=== PATIENT | male | born 2005 | race Caucasian/White ===

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

== ENCOUNTER → 2024-08-04 | Outpatient (CLI) | payer MEDICAID, SELFPAY ==
[2024-08-04 15:39] LABS: Absolute Lymphocyte Count 1.75 X10^3/uL (0.83-4.51); Absolute Neutrophil Count 10.5 X10^3/uL (2.0-7.7); Basophil# 0.07 X10^3/uL; Basophil% 0.5 % (0-1); Eosinophil# 0.29 X10^3/uL; Eosinophils% 2.2 % (0-5); Hematocrit 42.5 % (40-54); Hemoglobin 12.8 g/dL (13.0-16.5); Lymphocyte # 1.75 X10^3/ul (0.83-4.51); Lymphocyte % 13.2 % (19-41); Mean Corp Hgb Conc 30.1 g/dL (32-36); Mean Corpuscular Hgb 25.1 pg (27.0-32.0); Mean Corpuscular Volume 83.3 fL (80-94); Mean Platelet Vol. 9.8 fl (6.2-12.0); Monocyte# 0.62 X10^3/uL; Monocyte% 4.7 % (0-10); NRBC Flagged by Analyzer 0 % (0-5); Neutrophil % 78.9 % (47-70); Platelet Count 528 K/mm3 (150-450); RBC Distribution Width CV 15.2 % (11.6-14.6); RBC Distribution Width SD 46.1 fl (35.1-43.9); White Blood Count 13.3 K/mm3 (4.4-11.0)
[2024-08-04 15:56] LABS: Hemoglobin A1c 5.9 % (<=5.6)
[2024-08-04 17:22] LABS: Cholesterol 123 mg/dL (<=190); High Density Lipoprotein 44 mg/dL; Low Density Lipoprotein Calc. 57 mg/dL; Triglycerides 106 mg/dL; Very Low Density Lipoprotein 21 mg/dL (5-40); cholesterol:hdl ratio screen 2.77
[2024-08-04 18:15] LABS: ALB/GLOB Ratio 0.9 RATIO (0.9-2.4); AST(SGOT) 19 U/L (<=37); Alanine Aminotransfer ALT/SGPT 25 U/L (<=46); Alkaline Phosphatase 87 U/L (40-129); BUN 10 mg/dL (4-19); BUN/Creat Ratio 13.1 RATIO (10-20); Calcium 9.4 mg/dL (7.6-11.0); Carbon Dioxide 21.5 mmol/L (22.0-29.0); Creatinine, Serum 0.73 mg/dL (0.70-1.20); EST Glomerular Filtration Rate 133 (>60); Globulin 4.4 g/dL (2.2-4.2); Glucose 110 mg/dL (70-99); Protein, Total 8.3 g/dL (5.9-8.4); Total Bilirubin 0.55 mg/dL (0.00-1.30)
[2024-08-04 18:52] LABS: Anion Gap 17 (5-15); Chloride 101 mmol/L (96-108); Potassium 4.4 mmol/L (3.3-5.1); Sodium Level 139 mmol/L (133-145)
== END | disposition home or self-care (01) ==
LOC: BIMLAB 12:06
PROVIDERS: PCP Physician Assistant; Referring Provider Physician Assistant; Visit Provider Physician Assistant
DX: E88.810 Metabolic syndrome (principal); E66.01 Morbid (severe) obesity due to excess calories; I87.2 Venous insufficiency (chronic) (peripheral)
CPT/HCPCS: 36415; 80053; 80061; 83036; 84443; 85025

== ENCOUNTER → 2024-08-21 | Outpatient (CLI) | payer MEDICAID, SELFPAY ==
--- NOTE | 2024-08-21 13:45 | VDLE_ITS ---
Reason For Study Reason For Study: BLE Swelling RIGHT LEFT CFV is compressible, spontaneous, phasic, competent CFV is compressible, phasic, and INCOMPETENT for and demonstrates normal augmentation. greater than 1.0 second. FV is compressible, spontaneous, phasic, competent FV is compressible, spontaneous, phasic, competent and demonstrates normal augmentation. and demonstrates normal augmentation. POP V is compressible, spontaneous, phasic, competent POP V is compressible, spontaneous, phasic, competent and demonstrates normal augmentation. and demonstrates normal augmentation. T/P Trunk is compressible. T/P Trunk is compressible. PTV is compressible. PTV is compressible. RT PerV is compressible. LT PerV is compressible. SFJ is INCOMPETENT and measures 0.88 cm. SFJ is INCOMPETENT and measures 0.98 cm. GSV proximal thigh measures 0.63 x 0.71 cm. GSV proximal thigh measures 0.84 x 0.90 cm. GSV at knee measures 0.51 x 0.48 cm. GSV at knee measures 0.85 x 0.89 cm. GSV above knee is competent. GSV INCOMPETENT throughout for greater than 0.5 GSV below knee is INCOMPETENT for greater than 0.5 seconds. seconds. SSV at junction is competent and measures 0.24 x 0.21 ASV mid thigh is INCOMPETENT for greater than 0.5 cm. seconds and measures 0.65 x 0.66 cm. Unable to visualize SSV at Mid Calf. ASV at knee is INCOMPETENT for greater than 0.5 seconds and measures 0.54 x 0.57 cm. SSV at junction is competent and measures 0.33 x 0.34 cm. SSV mid calf is competent and measures 0.23 x 0.28 cm. Procedure Exam performed in department. This is a venous duplex using B-mode, color flow and spectral Doppler. The exam was diagnostic. The study was technically difficult due to body habitus. Limited views obtained. VL/Venous Duplex US - Balaji Extrem Interpretation Summary Deep veins of the lower extremities are bilaterally patent and compressible seg mentally. There is no evidence of deep vein thrombosis on either side. Valvular competence appears intact within the p roximal deep venous system on the right . On the left, the common femoral vein is incompetent. The great saphenous veins appear bilaterally patent and compressible segmentally. Sapheno-femoral junctions are bilaterally incompetent . The right great saphenous vein appears competent above the knee. The right great saphenous vein appears incompetent be low the knee. The left great saphenous vein appears segmentally incompetent. Small saphenous veins are patent and comp etent, though the left small saphenous vein was not visualized in the calf. Accessory saphenous veins in the right mid -thigh and at the right knee are incompetent. Ordering Physician: Troy Holland Referring Physician: Troy Holland Performed By: Charli Parikh RVT
== END | disposition home or self-care (01) ==
LOC: CVS 13:42
PROVIDERS: PCP Physician Assistant; Referring Provider Physician Assistant; Visit Provider Physician Assistant
DX: I87.2 Venous insufficiency (chronic) (peripheral) (principal); I89.0 Lymphedema, not elsewhere classified
CPT/HCPCS: 29581; 93970

== ENCOUNTER 2024-09-04 09:45 | Outpatient (RCR) | payer MEDICAID, SELFPAY ==
[2024-08-17 10:41] VITALS: BP 149/92; PULSE 108; RESP 18; BMI 66.4
--- NOTE | 2024-08-17 13:31 | HP.PCM_ITS ---
History of Present Illness Date of Service: 08/17/24 Chief Complaint: Left lower extremity venous ulcerations History of Wound: Patient is a 19-year-old male who presents to the wound care center today by referral from his SRINIVASA Greer. Reports that his legs are swollen and more painful. He was placed on antibiotic prior and had been elevating his legs more and using Burke wraps for compression and reports some improvement in this. States that the legs do have some yellow serous fluid drainage and tend to weep. He did report history of multiple ulcerations however these have improved with the previously stated treatment. He continues to attempt Burke wrap compression and will be going to vascular physician for additional recommendations. He is understanding that he has PMHx of HTN, morbid obesity, peripheral venous insufficiency, lymphedema, and metabolic syndrome are contributing to his current edema and wound problems. He denies any trauma to the lower extremities. Denies N/V/F/chills. Denies further complaints. FORMERLY [facility] Medical History Emotional disorder Home Medications ?Medication ?Instructions ?Recorded ?Last Taken ?Type hydrocolloid dressing 6 X 6 #50 ea 08/04/24 Unknown Rx (Aquacel Extra) metoprolol succinate 25 mg 25 mg PO QDAY #30 tabs 07/09 01/29 Unknown Rx tablet,extended release 24 hr non-adherent bandage 5 X 9 #60 ea 08/04/24 Unknown R x Allergy/AdvReac Type Severity Reaction Status Date / Time Dressing: Non-Medicated AdvReac Mild blisters Verified 08/17/24 13:23 (wrap) Family History Other Anxiety Arthritis CVA (cerebral vascular accident) Diabetes Epilepsy seizure, generalized, convulsive High cholesterol Hypertension Liver disease Seizures Thyroid disorder Surgical History History of tonsillectomy and adenoidectomy Social History adopted: No household members: family housing: house current occupational status: unemployed current occupational exposures/hazards: No pets and animals: Yes pets and animals: cat(s) and dog(s) leisure activities: exercise history of recent travel: No Smoking Status: Never smoker alcohol intake: current alcohol intake frequency: holidays/special occasions only substance use type: does not use diet: other well-balanced diet: rarely or never caffeine: Yes Type: carbonated beverages eating out: other details: every other week during the past year weight has: remained stable what type of physical activity do you participate in: other details: elliptical frequency: 3-4 times per week duration: 15-30 minutes/day radha/mandaeism: None seatbelt use: always do you feel safe at home: Yes ROS Constitutional Constitutional: Denies anorexia, change in weight, chills or fever(s) Eyes Eyes: Denies blurry vision, change in vision or double vision ENT HEENT: Denies dysphagia, nasal congestion or sore throat Cardiovascular Cardiovascular: Denies chest pain, claudication, dyspnea or palpitations Respiratory/Chest Respiratory/Chest: Denies cough, shortness of breath at rest or wheezing Gastrointestinal Gastrointestinal: Denies abdominal pain, constipation, diarrhea, nausea or vomiting Genitourinary Genitourinary: Denies dysuria, urinary frequency or urinary urgency Musculoskeletal Musculoskeletal: Denies joint pain, joint stiffness or joint swelling Integumentary Integumentary: Denies jaundice, pruritus or rash Neurologic Neurologic: Denies dizziness, numbness or seizures Psychiatric Psychiatric: Denies anxiety or depression Endocrine Endocrinology: Denies cold intolerance or heat intolerance Hematologic/Lymphatic Hematologic/Lymphatic: Denies easy bleeding or easy bruising Vital Signs Vital Signs Vital Signs: 08/17/24 10:41 Pulse Rate 108 H Respiratory Rate 18 Blood Pressure 149/92 H Blood Pressure Mean 111 Blood Pressure Source Monitor Blood Pressure Position Sitting Blood Pressure Location Right Arm Oxygen Delivery Method Room Air Weight Weight: 228.611 kg Body Mass Index (BMI) 66.4 Physical Exam Const alert, oriented x3 and no apparent distress General Appearance: cooperative HEENT normocephalic Eyes General Eye: normal appearance of both eyes Neck General: normal visual inspection Lymph Lymphatic: no lymphadenopathy noted and lymphedema Resp normal respiratory effort Cardio regular rate and regular rhythm Extremity normal capillary refill and no calf tenderness Extremity Narrative: Lower extremity: Vascular: DP and PT pulses weakly palpable secondary to edema. CFT is brisk to all digits of the foot. Normal temperature gradient. Pedal hair growth is appreciated to the digits. Neurologic: Epicritic sensation intact without focal deficit noted. Musculoskeletal: Muscle strength 5 of 5 age-appropriate. There is decreased range of motion of the ankle joint with the knee extended without pain or crepitus bilateral. Full range of motion is appreciated with the knee flexed. Negative Fay test, negative Ojeda test bilateral lower extremity. Full, smooth, pain-free range of motion of the STJ, MTJ and first MTPJ is appreciated. Dermatology: There is edema to bilateral lower extremities with left lower extremity greater than the right lower extremity. Left lower extremity demonstrates healthy appearing skin with reduced turgor. Positive Stemmer sign bilateral second digit. There is hemosiderin deposition and reddish purpleish discoloration circumferentially about the left lower extremity. There are areas of previous noted healed superficial skin tears with some areas of serous drainage. No signs of infection. Skin no rashes or lesions noted Neuro moves all extremities Debridement Note Debridement Note No debridement was completed: No debridement was completed today Post-Debridement Measurements and Additional Note: Post-Debridement Measurements/Treatment - Nurse 1 - General Ulcer Assessment Start: 08/17/24 10:30 Freq: Status: Active Protocol: WC.LOWEXWellington Activity Type Activity Date Activity User E-sign Co-sign Detail Recorded Client Recorded Date Recorded By Document 08/17/24 10:41 [id number] 08/17/24 10:59 08/17/24 10:41 - Today's Visit Information Type of service Initial Visit Arrival Mode Ambulatory Accompanied by [facility] Patient Identification Verified (Name & Yes ) Height and Weight Height 6 ft 1 in Weight 228.611 kg Weight in Pounds 504.0 lbs Weight Measurement Method Estimated by Patient Body Mass Index (BMI) 66.4 BMI Classification Obese Vital Signs Pulse Rate (60-100) 108 H Pulse Location Monitor Respiratory Rate (12-18) 18 Respiratory rate source Observation Oxygen Delivery Method Room Air Blood Pressure (90/60-120/80) 149/92 H Blood Pressure Mean 111 Source Monitor Position Sitting Blood Pressure Location Right Arm History Since Last Visit- (Skip if this is Patient's initial visit) Left Footwear Regular Shoe Right Footwear Regular Shoe Pain Scale: 0-10 Numeric Is Patient Pain Free? No BLE -Description Aching -Comments PAIN COMES AND GOES Lower Extremity Assessment/ Foot Assessment/ Toe Nail Assessment Right -Posterior Tibial Palpable No -Posterior Tibial Doppler Multiphasic -Dorsalis Pedis Palpable No -Dorsalis Pedis Doppler Monophasic -Extremity Color Red,Normal -Hair Growth on Legs Yes -Hair Growth on Toes Yes -Thick No -Discolored No -Deformed No -Improper Length & Hygeine No Left -Posterior Tibial Palpable No -Posterior Tibial Doppler Multiphasic -Dorsalis Pedis Palpable No -Dorsalis Pedis Doppler Monophasic -Extremity Color Red -Hair Growth on Legs Yes -Hair Growth on Toes Yes -Temperature of Extremity Warm -Thick No -Discolored No -Deformed No -Improper Length & Hygeine No Communication Assessment Preferred language Swedish Order Tracer Required No Able to Read Yes Able to Write Yes Communication Tools None Right Hearing Abillity Normal Left Hearing Abillity Normal Visual Assistive Devices Glasses Teaching Assessment Preferences Verbal,Written, Demonstration Barriers to Learning None Readiness To Learn Excellent Willingness to Engage in Self Management High Activies Readiness to Engage in Self Management High Activities Anxiety Level Calm Cooperation Cooperative Perception Coherent Interest in Health Problem Asks Questions Education Importance Acknowledges Need Does Patient Smoke tobacco or other Yes substances Smoking Status Never smoker Is Patient Diabetic No Functional Assessment Recent Decline in Ability to Perform Denies Any Declines Culture/Scientology/Doormaker Cultural/Scientology Needs that may affect No Treatment Plan Would you allow our hospital mechanical spreader operator to No meet you for the purpose of spiritual/ emotional support? Doormaker to contact place of adventism No WC - Nurse 1 - General Ulcer Measurement Start: 08/17/24 10:30 Freq: Status: Active Protocol: Activity Type Activity Date Activity User E-sign Co-sign Detail Recorded Client Recorded Date Recorded By Document 08/17/24 10:41 [id number] 08/17/24 10:59 08/17/24 10:41 Wound Center Nurse 1 Right Calf (cm) 61 Right Ankle (cm) 34 Left Calf (cm) 74 Left Ankle (cm) 37.5 WC - Nurse 2 - General Ulcer CM Notes Start: 08/17/24 10:30 Freq: Status: Active Protocol: Activity Type Activity Date Activity User E-sign Co-sign Detail Recorded Client Recorded Date Recorded By Document 08/17/24 11:16 BM [id number] 08/17/24 11:24 [facility] 08/17/24 11:16 Pain Scale: 0-10 Numeric Is Patient Pain Free? Yes WC - Nurse 3 - General Ulcer D/C NN Start: 08/17/24 10:30 Freq: Status: Active Protocol: Activity Type Activity Date Activity User E-sign Co-sign Detail Recorded Client Recorded Date Recorded By Document 08/17/24 11:50 [id number] 08/17/24 11:51 KW 08/17/24 11:50 Wound Care Center Nurse 3 BLE -Multi-Layered Wrap Application Multi-Layer Comp - Bilat ($ ) -Multi-Layer Compression Bilat (Qty 1 applied) Pain Scale: 0-10 Numeric Is Patient Pain Free? Yes WC - Visit Discharge Discharge Condition Stable Ambulatory Status Ambulatory Transportation Private Auto Medication Reconcilliation completed & No provided to patient/care provider Clinical Summary of Care Provided Yes Assessment/Plan Assessment/Plan (1) Non-pressure chronic ulcer of left calf limited to breakdown of skin: CODE(S): L97.221 - Non-pressure chronic ulcer of left calf limited to breakdown of skin (2) Venous (peripheral) insufficiency: CODE(S): I87.2 - Venous insufficiency (chronic) (peripheral) (3) Lymphedema of left lower extremity: CODE(S): I89.0 - Lymphedema, not elsewhere classified (4) Morbid obesity: CODE(S): E66.01 - Morbid (severe) obesity due to excess calories (5) Metabolic syndrome: CODE(S): E88.810 - Metabolic syndrome (6) Hypertension: CODE(S): I10 - Essential (primary) hypertension QUALIFIERS: Hypertension type: primary hypertension Qualified Code(s): I10 - Essential (primary) hypertension PLAN: Plan Patient seen and evaluated Discussed with patient currently demonstrates no open areas of ulceration however skin does remain friable secondary to his previously healed skin tears. There is still some venous weeping of serous fluid secondary to significant edema. 3M compression wrap applied to bilateral lower extremities. He was instructed to not get this wet and utilize cast bag when showering to remain compliant. Discussed it is imperative for him to begin diet and weight control. He is currently not diabetic but I have discussed with him that with metabolic syndrome he is at higher risk of development of diabetes. Most recent A1c was 5.9%. Discussed with weight loss he would be able to prevent onset of early diabetes, improve his blood pressure, and improve his lymphedema and his venous insufficiency. Discussed he will always likely require compression stocking to aid in control of his edema and may require the use of lymphedema pumps. He is understanding of this. Discussed continued evaluation to ensure recidivism of his previous wounds do not occur. He is in agreement with this plan. He will undergo follow-up with vascular surgery, Dr. Narayan and has been scheduled for LEAS/Venous studies with CTA angiogram. The following work up and care recommendations were made: DressinM compression wrap. Do not get wet. Utilize cast bag when showering to remain compliant Wash: Do not get wet Tissue growth optimization: None Offload: 3M compression wrap with eventual transition into compression stockings/lymphedema pump Vascular: Do not feel vascular status is impacting healing status. Venous stasis remains difficult in treatment. Edema: 3M compression wrap with eventual transition into compression stocking/lymphedema pump. Continue to elevate lower extremities when at rest to aid in edema control. Infection: No signs of infection Pain: No pain currently. May take [id number] Tylenol Extra Strength for any discomfort Host factors: Metabolic syndrome, morbid obesity, venous insufficiency/stasis, lymphedema, and hypertension all affect healing status I answered all the patient's questions. To return to the wound healing center in 1 week or call sooner if the patient has any questions or concerns.
--- NOTE | 2024-08-18 12:10 | WC ---
PHOTO 08/17/24 LLE EDEMA
[2024-08-21 10:57] VITALS: RESP 22; TEMP 37.2; BMI 66.4
[2024-08-21 15:20] VITALS: BP 140/99; PULSE 104; RESP 18; TEMP 36.8; BMI 66.4
[2024-08-24 09:46] VITALS: BP 159/109; PULSE 105; RESP 16; TEMP 35.9; BMI 66.4
--- NOTE | 2024-08-24 10:08 | PN.PCM_ITS ---
History of Present Illness Date of Service: 08/24/24 Chief Complaint: Left lower extremity venous ulcerations History of Wound: Patient is a 19-year-old male who presents to the wound care center today by referral from his SRINIVASA Greer. Reports that his legs are swollen and more painful. He was placed on antibiotic prior and had been elevating his legs more and using Burke wraps for compression and reports some improvement in this. States that the legs do have some yellow serous fluid drainage and tend to weep. He did report history of multiple ulcerations however these have improved with the previously stated treatment. He continues to attempt Burke wrap compression and will be going to vascular physician for additional recommendations. He is understanding that he has PMHx of HTN, morbid obesity, peripheral venous insufficiency, lymphedema, and metabolic syndrome are contributing to his current edema and wound problems. He denies any trauma to the lower extremities. Denies N/V/F/chills. Denies further complaints. Subjective Subjective This 19-year-old male returns to the wound care center today for continued follow-up of bilateral lymphedema left greater than right compounded by chronic venous insufficiency/stasis. He did tolerate the 3M compression wrap to bilateral legs and was compliant with keeping them dry. He denies constitutional symptoms. Denies further complaints. Objective Data Objective Data Vital Signs: Vital Signs Temp Pulse Resp BP O2 Del Method 96.7 F L 105 H 16 159/109 H Room Air 08/24/24 09:46 08/24/24 09:46 08/24/24 09:46 08/24/24 09:46 08/24/24 09:46 Oxygen Delivery Method Room Air Weight: 228.611 kg Body Mass Index (BMI) 66.4 Physical Exam Const alert, oriented x3 and no apparent distress General Appearance: cooperative HEENT normocephalic Eyes General Eye: normal appearance of both eyes Neck General: normal visual inspection Lymph Lymphatic: no lymphadenopathy noted and lymphedema Resp normal respiratory effort Cardio regular rate and regular rhythm Extremity normal capillary refill and no calf tenderness Extremity Narrative: Lower extremity: Vascular: DP and PT pulses weakly palpable secondary to edema. CFT is brisk to all digits of the foot. Normal temperature gradient. Pedal hair growth is appreciated to the digits. Neurologic: Epicritic sensation intact without focal deficit noted. Musculoskeletal: Muscle strength 5 of 5 age-appropriate. There is decreased range of motion of the ankle joint with the knee extended without pain or crepitus bilateral. Full range of motion is appreciated with the knee flexed. Negative Fay test, negative Ojeda test bilateral lower extremity. Full, smooth, pain-free range of motion of the STJ, MTJ and first MTPJ is appreciated. Dermatology: There is edema to bilateral lower extremities with left lower extremity greater than the right lower extremity. Left lower extremity demonstrates healthy appearing skin with reduced turgor. Positive Stemmer sign bilateral second digit. There is hemosiderin deposition and reddish purpleish discoloration circumferentially about the left lower extremity. There are areas of previous noted healed superficial skin tears with some areas of serous drainage. No signs of infection. Skin no rashes or lesions noted Neuro moves all extremities Debridement Note Debridement Note No debridement was completed: No debridement was completed today Post-Debridement Measurements and Additional Note: Post-Debridement Measurements/Treatment - Nurse 1 - General Ulcer Assessment Start: 08/17/24 10:30 Freq: Status: Active Protocol: ANDREY Activity Type Activity Date Activity User E-sign Co-sign Detail Recorded Client Recorded Date Recorded By Document 08/17/24 10:41 KW [id number] 08/17/24 10:59 KW Document 08/21/24 10:57 DL [id number] 08/21/24 11:03 DL Document 08/21/24 15:20 KW [id number] 08/21/24 15:22 KW Document 08/24/24 09:46 KW [id number] 08/24/24 09:55 KW 08/17/24 08/21/24 08/21/24 10:41 10:57 15:20 - Today's Visit Information Type of service Initial Visit Nurse-only Nurse-only Visit Visit Arrival Mode Ambulatory Ambulatory Ambulatory Transfer Assistance None Accompanied by grandma grandmother Patient Identification Verified (Name & Yes Yes Yes ) Patient Requires Transmission-Based No Precautions Height and Weight Height 6 ft 1 in Weight 228.611 kg Weight in Pounds 504.0 lbs Weight Measurement Method Estimated by Patient Body Mass Index (BMI) 66.4 66.4 66.4 BMI Classification Obese Obese Obese Vital Signs Temperature (97.8 F-99.1 F) 99 F 98.2 F Temperature Source Temporal Temporal Pulse Rate (60-100) 108 H 104 H Pulse Location Monitor Monitor Respiratory Rate (12-18) 18 22 H 18 Respiratory rate source Observation Observation Observation Oxygen Delivery Method Room Air Room Air Blood Pressure (90/60-120/80) 149/92 H 140/99 H Blood Pressure Mean (mm Hg) 111 112 Source Monitor Monitor Position Sitting Sitting Blood Pressure Location Right Arm Left Arm History Since Last Visit- (Skip if this is Patient's initial visit) Have you changed medications since your No No last visit? Any new allergies or adverse reactions No No Had a fall/change in ADL's that may No No increase risk of falls Signs or symptoms of abuse and/or No No neglect since last visit Have you been in the hospital since your No No last visit? Has dressing in place as prescribed No Yes Has compression in place as prescribed Yes Yes Has offloadiing in place as prescribed N/A N/A Experienced any changes in pain level or No No management Left Footwear Regular Shoe Regular Shoe Right Footwear Regular Shoe Regular Shoe Pain Scale: 0-10 Numeric Is Patient Pain Free? No Yes Yes BLE -Description Aching -Comments PAIN COMES AND GOES Lower Extremity Assessment/ Foot Assessment/ Toe Nail Assessment Right -Posterior Tibial Palpable No -Posterior Tibial Doppler Multiphasic -Dorsalis Pedis Palpable No -Dorsalis Pedis Doppler Monophasic -Extremity Color Red,Normal -Hair Growth on Legs Yes -Hair Growth on Toes Yes -Thick No -Discolored No -Deformed No -Improper Length & Hygeine No Left -Posterior Tibial Palpable No -Posterior Tibial Doppler Multiphasic -Dorsalis Pedis Palpable No -Dorsalis Pedis Doppler Monophasic -Extremity Color Red -Hair Growth on Legs Yes -Hair Growth on Toes Yes -Temperature of Extremity Warm -Thick No -Discolored No -Deformed No -Improper Length & Hygeine No Communication Assessment Preferred language Ukrainian Continuous Process Coffee Roaster Required No Able to Read Yes Able to Write Yes Communication Tools None Right Hearing Abillity Normal Left Hearing Abillity Normal Visual Assistive Devices Glasses Teaching Assessment Preferences Verbal,Written, Demonstration Barriers to Learning None Readiness To Learn Excellent Willingness to Engage in Self Management High Activies Readiness to Engage in Self Management High Activities Anxiety Level Calm Cooperation Cooperative Perception Coherent Interest in Health Problem Asks Questions Education Importance Acknowledges Need Does Patient Smoke tobacco or other Yes substances Smoking Status Never smoker Is Patient Diabetic No Functional Assessment Recent Decline in Ability to Perform Denies Any Declines Culture/Rastafari/Deckhand Fishing Vessel Cultural/Rastafari Needs that may affect No Treatment Plan Would you allow our hospital relays draftsperson to No meet you for the purpose of spiritual/ emotional support? Deckhand Fishing Vessel to contact place of jew No 08/24/24 09:46 WC - Today's Visit Information Type of service Follow-up Visit (Physician/ELECTRICAL LINE SPLICER ) Arrival Mode Ambulatory Transfer Assistance Accompanied by grandmother Patient Identification Verified (Name & Yes ) Patient Requires Transmission-Based Precautions Height and Weight Height Weight Weight in Pounds Weight Measurement Method Body Mass Index (BMI) 66.4 BMI Classification Obese Vital Signs Temperature (97.8 F-99.1 F) 96.7 F L Temperature Source Temporal Pulse Rate (60-100) 105 H Pulse Location Monitor Respiratory Rate (12-18) 16 Respiratory rate source Observation Oxygen Delivery Method Room Air Blood Pressure (90/60-120/80) 159/109 H Blood Pressure Mean (mm Hg) 125 Source Monitor Position Semi-Fowlers Blood Pressure Location Left Arm History Since Last Visit- (Skip if this is Patient's initial visit) Have you changed medications since your No last visit? Any new allergies or adverse reactions No Had a fall/change in ADL's that may No increase risk of falls Signs or symptoms of abuse and/or No neglect since last visit Have you been in the hospital since your No last visit? Has dressing in place as prescribed Yes Has compression in place as prescribed Yes Has offloadiing in place as prescribed N/A Experienced any changes in pain level or No management Left Footwear Regular Shoe Right Footwear Regular Shoe Pain Scale: 0-10 Numeric Is Patient Pain Free? Yes BLE -Description -Comments Lower Extremity Assessment/ Foot Assessment/ Toe Nail Assessment Right -Posterior Tibial Palpable -Posterior Tibial Doppler -Dorsalis Pedis Palpable -Dorsalis Pedis Doppler -Extremity Color -Hair Growth on Legs -Hair Growth on Toes -Thick -Discolored -Deformed -Improper Length & Hygeine Left -Posterior Tibial Palpable -Posterior Tibial Doppler -Dorsalis Pedis Palpable -Dorsalis Pedis Doppler -Extremity Color -Hair Growth on Legs -Hair Growth on Toes -Temperature of Extremity -Thick -Discolored -Deformed -Improper Length & Hygeine Communication Assessment Preferred trench trimmer fine Required Able to Read Able to Write Communication Tools Right Hearing Abillity Left Hearing Abillity Visual Assistive Devices Teaching Assessment Preferences Barriers to Learning Readiness To Learn Willingness to Engage in Self Management Activies Readiness to Engage in Self Management Activities Anxiety Level Cooperation Perception Interest in Health Problem Education Importance Does Patient Smoke tobacco or other substances Smoking Status Is Patient Diabetic Functional Assessment Recent Decline in Ability to Perform Culture/Rastafari/Deckhand Fishing Vessel Cultural/Rastafari Needs that may affect Treatment Plan Would you allow our [facility] rel[facility] draftsperson to meet you for the purpose of spiritual/ emotional support? Deckhand Fishing Vessel to contact place of jew WC - Nurse 1 - General Ulcer Measurement Start: 08/17/24 10:30 Freq: Status: Active Protocol: Activity Type Activity Date Activity User E-sign Co-sign Detail Recorded Client Recorded Date Recorded By Document 08/17/24 10:41 KW [id number] 08/17/24 10:59 KW Document 08/24/24 09:46 KW [id number] 08/24/24 09:55 KW 08/17/24 08/24/24 10:41 09:46 Wound Center Nurse 1 Right Calf (cm) 61 61 Right Ankle (cm) 34 35 Left Calf (cm) 74 60.5 Left Ankle (cm) 37.5 36 - Nurse 2 - General Ulcer CM Notes Start: 08/17/24 10:30 Freq: Status: Active Protocol: Activity Type Activity Date Activity User E-sign Co-sign Detail Recorded Client Recorded Date Recorded By Document 08/17/24 11:16 [facility] [id number] 08/17/24 11:24 [facility] Document 08/24/24 10:02 [facility] [id number] 08/24/24 10:05 F 08/17/24 08/24/24 11:16 10:02 Pain Scale: 0-10 Numeric Is Patient Pain Free? Yes Yes - Nurse 3 - General Ulcer D/C NN Start: 08/17/24 10:30 Freq: Status: Active Protocol: Activity Type Activity Date Activity User E-sign Co-sign Detail Recorded Client Recorded Date Recorded By Document 08/17/24 11:50 KW [id number] 08/17/24 11:51 KW Document 08/21/24 10:57 DL [id number] 08/21/24 11:03 DL Document 08/21/24 15:20 KW [id number] 08/21/24 15:22 KW 08/17/24 08/21/24 08/21/24 11:50 10:57 15:20 Wound Care Center Nurse 3 BLE -Multi-Layered Wrap Application Multi-Layer Multi-Layer Comp - Bilat ($ Comp - Bilat ($ ) ) -Multi-Layer Compression Bilat (Qty 1 1 applied) Pain Scale: 0-10 Numeric Is Patient Pain Free? Yes Yes Yes WC - Visit Discharge Discharge Condition Stable Stable Ambulatory Status Ambulatory Ambulatory Transportation Private Auto Private Auto Medication Reconcilliation completed & No No provided to patient/care provider Clinical Summary of Care Provided Yes Yes Assessment/Plan Assessment/Plan (1) Non-pressure chronic ulcer of left calf limited to breakdown of skin: CODE(S): L97.221 - Non-pressure chronic ulcer of left calf limited to breakdown of skin (2) Venous (peripheral) insufficiency: CODE(S): I87.2 - Venous insufficiency (chronic) (peripheral) (3) Lymphedema of left lower extremity: CODE(S): I89.0 - Lymphedema, not elsewhere classified (4) Morbid obesity: CODE(S): E66.01 - Morbid (severe) obesity due to excess calories (5) Metabolic syndrome: CODE(S): E88.810 - Metabolic syndrome (6) Hypertension: CODE(S): I10 - Essential (primary) hypertension QUALIFIERS: Hypertension type: primary hypertension Qualified Code(s): I10 - Essential (primary) hypertension PLAN: Plan Patient seen and evaluated Patient currently demonstrates no open areas of ulceration, however skin does remain friable secondary to his previously healed skin tears to which he is und erstanding of risk of reulceration. There is still some venous scant weeping of serous fluid secondary to significant edema. 3M compression wrap applied to bilateral lower extremities. He was instructed to not get this wet and utilize cast bag when showering to remain compliant. He did previously tolerate the 3M compression wrap well and did undergo dressing change this past Wednesday. Nursing reports calf circumference measurement has decreased versus previous visit and treatment is improving his edema. I have previously discussed with him it is imperative for him to begin diet and weight control. He is currently not diabetic but I have discussed with him that with metabolic syndrome he is at higher risk of development of diabetes. Most recent A1c was 5.9%. Discussed with weight loss he would be able to prevent onset of early diabetes, improve his blood pressure, and improve his lymphedema and his venous insufficiency. Discussed he will always likely require compression stocking to aid in control of his edema and may require the use of lymphedema pumps. He is understanding of this. Discussed continued evaluation to ensure recidivism of his previous wounds do not occur. He is in agreement with this plan. He did previously undergo venous studies on 08/21/2024. 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 Left common femoral vein incompetent, left great saphenous vein segmentally incompetent. These findings were discussed with him today. He will undergo follow-up with vascular surgery, Dr. Narayan and has been scheduled for LEAS/Venous studies with CTA angiogram. The following work up and care recommendations were made: DressinM compression wrap. Do not get wet. Utilize cast bag when showering to remain compliant Wash: Do not get wet Tissue growth optimization: None Offload: 3M compression wrap with eventual transition into compression stockings/lymphedema pump Vascular: Do not feel vascular status is impacting healing status. Venous stasis remains difficult in treatment. Edema: 3M compression wrap with eventual transition into compression stocking/lymphedema pump. Continue to elevate lower extremities when at rest to aid in edema control. Infection: No signs of infection Pain: No pain currently. May take [id number] Tylenol Extra Strength for any discomfort Host factors: Metabolic syndrome, morbid obesity, venous insufficiency/stasis, lymphedema, and hypertension all affect healing status He will return for nurse visit on Wednesday08/28/2024 for change of bilateral 3M compression dressing. I answered all the patient's questions. To return to the wound healing center in 1 week or call sooner if the patient has any questions or concerns.
[2024-08-28 08:42] VITALS: BP 150/94; PULSE 102; RESP 16; TEMP 37.2; BMI 66.4
[2024-08-31 09:49] VITALS: BP 155/88; PULSE 109; RESP 20; TEMP 36; BMI 66.4
--- NOTE | 2024-08-31 11:51 | PN.PCM_ITS ---
History of Present Illness Date of Service: 08/31/24 Chief Complaint: Left lower extremity venous ulcerations History of Wound: Patient is a 19-year-old male who presents to the wound care center today by referral from his SRINIVASA Greer. Reports that his legs are swollen and more painful. He was placed on antibiotic prior and had been elevating his legs more and using Burke wraps for compression and reports some improvement in this. States that the legs do have some yellow serous fluid drainage and tend to weep. He did report history of multiple ulcerations however these have improved with the previously stated treatment. He continues to attempt Burke wrap compression and will be going to vascular physician for additional recommendations. He is understanding that he has PMHx of HTN, morbid obesity, peripheral venous insufficiency, lymphedema, and metabolic syndrome are contributing to his current edema and wound problems. He denies any trauma to the lower extremities. Denies N/V/F/chills. Denies further complaints. Subjective Subjective This 19-year-old male returns to the wound care center today for continued follow-up of bilateral lymphedema left greater than right compounded by chronic venous insufficiency/stasis. He continues to tolerate the 3M compression wrap to bilateral legs and remains compliant with keeping them dry. He does note his legs are beginning to improve with less edema. He denies constitutional symptoms. Denies further complaints. Objective Data Objective Data Vital Signs: Vital Signs Temp Pulse Resp BP O2 Del Method 96.8 F L 109 H 20 H 155/88 H Room Air 08/31/24 09:49 08/31/24 09:49 08/31/24 09:49 08/31/24 09:49 08/28/24 08:42 Oxygen Delivery Method Room Air Weight: 228.611 kg Body Mass Index (BMI) 66.4 Physical Exam Const alert, oriented x3 and no apparent distress General Appearance: cooperative Nutritional Appearance: morbidly obese HEENT normocephalic Eyes General Eye: normal appearance of both eyes Neck General: normal visual inspection Lymph Lymphatic: no lymphadenopathy noted and lymphedema Resp normal respiratory effort Cardio regular rate and regular rhythm Extremity normal capillary refill and no calf tenderness Extremity Narrative: Lower extremity: Vascular: DP and PT pulses weakly palpable secondary to edema. CFT is brisk to all digits of the foot. Normal temperature gradient. Pedal hair growth is appreciated to the digits. Neurologic: Epicritic sensation intact without focal deficit noted. Musculoskeletal: Muscle strength 5 of 5 age-appropriate. There is decreased range of motion of the ankle joint with the knee extended without pain or crepitus bilateral. Full range of motion is appreciated with the knee flexed. Negative Fay test, negative Ojeda test bilateral lower extremity. Full, smooth, pain-free range of motion of the STJ, MTJ and first MTPJ is appreciated. Dermatology: There is edema to bilateral lower extremities with left lower extremity greater than the right lower extremity. Left lower extremity demonstrates healthy appearing skin with reduced turgor. Positive Stemmer sign bilateral second digit. There is hemosiderin deposition and reddish purpleish discoloration circumferentially about the left lower extremity. There are areas of previous noted healed superficial skin tears with some areas of serous drainage. Small area of superficial skin tear secondary to his edema anterior medial left lower extremity. No signs of infection. Skin no rashes or lesions noted Neuro moves all extremities Debridement Note Debridement Note No debridement was completed: No debridement was completed today Post-Debridement Measurements and Additional Note: Post-Debridement Measurements/Treatment - Nurse 1 - General Ulcer Assessment Start: 08/17/24 10:30 Freq: Status: Active Protocol: WC.LOWEXWellington Activity Type Activity Date Activity User E-sign Co-sign Detail Recorded Client Recorded Date Recorded By Document 08/17/24 10:41 KW [id number] 08/17/24 10:59 KW Document 08/21/24 10:57 DL [id number] 08/21/24 11:03 DL Document 08/21/24 15:20 KW [id number] 08/21/24 15:22 KW Document 08/24/24 09:46 KW [id number] 08/24/24 09:55 KW Document 08/28/24 08:42 KW [id number] 08/28/24 08:51 KW Document 08/31/24 09:49 DL [id number] 08/31/24 09:53 DL 08/17/24 08/21/24 08/21/24 10:41 10:57 15:20 - Today's Visit Information Type of service Initial Visit Nurse-only Nurse-only Visit Visit Arrival Mode Ambulatory Ambulatory Ambulatory Transfer Assistance None Accompanied by grandma grandmother Patient Identification Verified (Name & Yes Yes Yes ) Patient Requires Transmission-Based No Precautions Height and Weight Height 6 ft 1 in Weight 228.611 kg Weight in Pounds 504.0 lbs Weight Measurement Method Estimated by Patient Body Mass Index (BMI) 66.4 66.4 66.4 BMI Classification Obese Obese Obese Vital Signs Temperature (97.8 F-99.1 F) 99 F 98.2 F Temperature Source Temporal Temporal Pulse Rate (60-100) 108 H 104 H Pulse Location Monitor Monitor Respiratory Rate (12-18) 18 22 H 18 Respiratory rate source Observation Observation Observation Oxygen Delivery Method Room Air Room Air Blood Pressure (90/60-120/80) 149/92 H 140/99 H Blood Pressure Mean (mm Hg) 111 112 Source Monitor Monitor Position Sitting Sitting Blood Pressure Location Right Arm Left Arm History Since Last Visit- (Skip if this is Patient's initial visit) Have you changed medications since your No No last visit? Any new allergies or adverse reactions No No Had a fall/change in ADL's that may No No increase risk of falls Signs or symptoms of abuse and/or No No neglect since last visit Have you been in the hospital since your No No last visit? Has dressing in place as prescribed No Yes Has compression in place as prescribed Yes Yes Has offloadiing in place as prescribed N/A N/A Experienced any changes in pain level or No No management Left Footwear Regular Shoe Regular Shoe Right Footwear Regular Shoe Regular Shoe Pain Scale: 0-10 Numeric Is Patient Pain Free? No Yes Yes BLE -Description Aching -Comments PAIN COMES AND GOES Lower Extremity Assessment/ Foot Assessment/ Toe Nail Assessment Right -Posterior Tibial Palpable No -Posterior Tibial Doppler Multiphasic -Dorsalis Pedis Palpable No -Dorsalis Pedis Doppler Monophasic -Extremity Color Red,Normal -Hair Growth on Legs Yes -Hair Growth on Toes Yes -Thick No -Discolored No -Deformed No -Improper Length & Hygeine No Left -Posterior Tibial Palpable No -Posterior Tibial Doppler Multiphasic -Dorsalis Pedis Palpable No -Dorsalis Pedis Doppler Monophasic -Extremity Color Red -Hair Growth on Legs Yes -Hair Growth on Toes Yes -Temperature of Extremity Warm -Thick No -Discolored No -Deformed No -Improper Length & Hygeine No Communication Assessment Preferred language Dutch Recorder Of Deeds Required No Able to Read Yes Able to Write Yes Communication Tools None Right Hearing Abillity Normal Left Hearing Abillity Normal Visual Assistive Devices Glasses Teaching Assessment Preferences Verbal,Written, Demonstration Barriers to Learning None Readiness To Learn Excellent Willingness to Engage in Self Management High Activies Readiness to Engage in Self Management High Activities Anxiety Level Calm Cooperation Cooperative Perception Coherent Interest in Health Problem Asks Questions Education Importance Acknowledges Need Does Patient Smoke tobacco or other Yes substances Smoking Status Never smoker Is Patient Diabetic No Functional Assessment Recent Decline in Ability to Perform Denies Any Declines Culture/Judaism/Nc Machinist Cultural/Judaism Needs that may affect No Treatment Plan Would you allow our hospital director of pupil personnel program to No meet you for the purpose of spiritual/ emotional support? Nc Machinist to contact place of episcopalian No 08/24/24 08/28/24 08/31/24 09:46 08:42 09:49 WC - Today's Visit Information Type of service Follow-up Visit Follow-up Visit Follow-up Visit (Physician/COMMERCIAL KITCHEN SERVICE TECHNICIAN (Physician/COMMERCIAL KITCHEN SERVICE TECHNICIAN (Physician/COMMERCIAL KITCHEN SERVICE TECHNICIAN ) ) ) Arrival Mode Ambulatory Ambulatory Ambulatory Transfer Assistance None Accompanied by grandmother grandmother Patient Identification Verified (Name & Yes Yes Yes ) Patient Requires Transmission-Based No Precautions Height and Weight Height Weight Weight in Pounds Weight Measurement Method Body Mass Index (BMI) 66.4 66.4 66.4 BMI Classification Obese Obese Obese Vital Signs Temperature (97.8 F-99.1 F) 96.7 F L 99 F 96.8 F L Temperature Source Temporal Temporal Temporal Pulse Rate (60-100) 105 H 102 H 109 H Pulse Location Monitor Monitor Monitor Respiratory Rate (12-18) 16 16 20 H Respiratory rate source Observation Observation Observation Oxygen Delivery Method Room Air Room Air Blood Pressure (90/60-120/80) 159/109 H 150/94 H 155/88 H Blood Pressure Mean (mm Hg) 125 112 110 Source Monitor Monitor Monitor Position Semi-Fowlers Semi-Fowlers Blood Pressure Location Left Arm Left Arm History Since Last Visit- (Skip if this is Patient's initial visit) Have you changed medications since your No No No last visit? Any new allergies or adverse reactions No No No Had a fall/change in ADL's that may No No No increase risk of falls Signs or symptoms of abuse and/or No No No neglect since last visit Have you been in the hospital since your No No No last visit? Has dressing in place as prescribed Yes Yes No Has compression in place as prescribed Yes Yes Yes Has offloadiing in place as prescribed N/A N/A N/A Experienced any changes in pain level or No No No management Left Footwear Regular Shoe Regular Shoe Right Footwear Regular Shoe Regular Shoe Pain Scale: 0-10 Numeric Is Patient Pain Free? Yes Yes Yes BLE -Description -Comments Lower Extremity Assessment/ Foot Assessment/ Toe Nail Assessment Right -Posterior Tibial Palpable -Posterior Tibial Doppler -Dorsalis Pedis Palpable -Dorsalis Pedis Doppler -Extremity Color -Hair Growth on Legs -Hair Growth on Toes -Thick -Discolored -Deformed -Improper Length & Hygeine Left -Posterior Tibial Palpable -Posterior Tibial Doppler -Dorsalis Pedis Palpable -Dorsalis Pedis Doppler -Extremity Color -Hair Growth on Legs -Hair Growth on Toes -Temperature of Extremity -Thick -Discolored -Deformed -Improper Length & Hygeine Communication Assessment Preferred lamination assembler Required Able to Read Able to Write Communication Tools Right Hearing Abillity Left Hearing Abillity Visual Assistive Devices Teaching Assessment Preferences Barriers to Learning Readiness To Learn Willingness to Engage in Self Management Activies Readiness to Engage in Self Management Activities Anxiety Level Cooperation Perception Interest in Health Problem Education Importance Does Patient Smoke tobacco or other substances Smoking Status Is Patient Diabetic Functional Assessment Recent Decline in Ability to Perform Culture/Judaism/Nc Machinist Cultural/Judaism Needs that may affect Treatment Plan Would you allow our hospital director of pupil personnel program to meet you for the purpose of spiritual/ emotional support? Nc Machinist to contact place of episcopalian WC - Nurse 1 - General Ulcer Measurement Start: 08/17/24 10:30 Freq: Status: Active Protocol: Activity Type Activity Date Activity User E-sign Co-sign Detail Recorded Client Recorded Date Recorded By Document 08/17/24 10:41 KW [id number] 08/17/24 10:59 KW Document 08/24/24 09:46 KW [id number] 08/24/24 09:55 KW Document 08/28/24 08:51 KW [id number] 08/28/24 08:51 KW Document 08/31/24 09:49 DL [id number] 08/31/24 09:53 DL 08/17/24 08/24/24 08/28/24 10:41 09:46 08:51 Wound Center Nurse 1 Right Calf (cm) 61 61 62.2 Right Ankle (cm) 34 35 33.8 Left Calf (cm) 74 60.5 62.6 Left Ankle (cm) 37.5 36 34.9 08/31/24 09:49 Wound Center Nurse 1 Right Calf (cm) 59 Right Ankle (cm) 33.1 Left Calf (cm) 59 Left Ankle (cm) 32.5 WC - Nurse 2 - General Ulcer CM Notes Start: 08/17/24 10:30 Freq: Status: Active Protocol: Activity Type Activity Date Activity User E-sign Co-sign Detail Recorded Client Recorded Date Recorded By Document 08/17/24 11:16 BMF [id number] 08/17/24 11:24 BM Document 08/24/24 10:02 BMF [id number] 08/24/24 10:05 BM Document 08/31/24 10:26 BMF [id number] 08/31/24 10:29 BMF 08/17/24 08/24/24 08/31/24 11:16 10:02 10:26 Wound Center Nurse 2 #1- L MED LE -Time 10:27 -Procedure Performed No -Post Debridement (cm) - Length 0.5 -Post Debridement (cm) - Width 2.5 -Post Debridement (cm) - Depth 0.1 -Total Square (Post) (cm) 1.25 -Area of Debridement (cm) - Length 0.5 -Area of Debridement (cm) - Width 2.5 -Total Square (Area) (cm) 1.25 -Tunneling No -Undermining/Tunneling No -Circular Undermining No -Wound/Ulcer Outcome Not Healed -Bleeding Controlled with NA Pain Scale: 0-10 Numeric Is Patient Pain Free? Yes Yes Yes WC - Nurse 3 - General Ulcer D/C NN Start: 08/17/24 10:30 Freq: Status: Active Protocol: Activity Type Activity Date Activity User E-sign Co-sign Detail Recorded Client Recorded Date Recorded By Document 08/17/24 11:50 KW [id number] 08/17/24 11:51 KW Document 08/21/24 10:57 DL [id number] 08/21/24 11:03 DL Document 08/21/24 15:20 KW [id number] 08/21/24 15:22 KW Document 08/24/24 10:26 DL [id number] 08/24/24 10:29 DL Edit Result 08/24/24 10:26 DL (1) [id number] 08/24/24 10:29 DL Edit Result 08/24/24 10:26 DL (2) [id number] 08/28/24 10:44 DL Document 08/28/24 08:42 KW [id number] 08/28/24 08:51 KW Document 08/31/24 10:55 DL [id number] 08/31/24 11:00 DL (1) BLE - Multi-Layer Compression Bilat (Qty 1 => 2 applied) (2) BLE - Multi-Layer Compression Bilat (Qty 2 => 1 applied) 08/17/24 08/21/24 08/21/24 11:50 10:57 15:20 Wound Care Center Nurse 3 #1- L MED LE -Ulcer Cleansing -Foul Odor after Cleansing -Primary Dressing Applied -Primary Dressing Covered/Secured with -Promogran Cristela Matter -Wound Comment(s) BLE -Multi-Layered Wrap Application Multi-Layer Multi-Layer Comp - Bilat ($ Comp - Bilat ($ ) ) -Other -Multi-Layer Compression Bilat (Qty 1 1 applied) Treatment Response Pain Scale: 0-10 Numeric Is Patient Pain Free? Yes Yes Yes WC - Visit Discharge Discharge Condition Stable Stable Ambulatory Status Ambulatory Ambulatory Transportation Private Auto Private Auto Medication Reconcilliation completed & No No provided to patient/care provider Clinical Summary of Care Provided Yes Yes Notes: 08/24/24 08/28/24 08/31/24 10:26 08:42 10:55 Wound Care Center Nurse 3 #1- L MED LE -Ulcer Cleansing Rinsed/ Irrigated with Saline -Foul Odor after Cleansing No -Primary Dressing Applied Promogran Cristela Matter -Primary Dressing Covered/Secured with Dry Gauze -Promogran Cristela Matter 1 -Wound Comment(s) R:45.5, L:45.5. Measured for Farrow Wraps. BLE -Multi-Layered Wrap Application Multi-Layer Multi-Layer Multi-Layer Comp - Bilat ($ Comp - Bilat ($ Comp - Bilat ($ ) ) ) -Other applied 3rd box -Multi-Layer Compression Bilat (Qty 1 1 1 applied) Treatment Response Procedure Tolerated Well Pain Scale: 0-10 Numeric Is Patient Pain Free? Yes Yes Yes WC - Visit Discharge Discharge Condition Stable Stable Stable Ambulatory Status Ambulatory Ambulatory Ambulatory Transportation Private Auto Private Auto Private Auto Medication Reconcilliation completed & No provided to patient/care provider Clinical Summary of Care Provided Yes Notes: Padding to ant ankle to RLE and ABD to weeping area to RLE Assessment/Plan Assessment/Plan (1) Non-pressure chronic ulcer of left calf limited to breakdown of skin: CODE(S): L97.221 - Non-pressure chronic ulcer of left calf limited to breakdown of skin (2) Venous (peripheral) insufficiency: CODE(S): I87.2 - Venous insufficiency (chronic) (peripheral) (3) Lymphedema of left lower extremity: CODE(S): I89.0 - Lymphedema, not elsewhere classified (4) Morbid obesity: CODE(S): E66.01 - Morbid (severe) obesity due to excess calories (5) Metabolic syndrome: CODE(S): E88.810 - Metabolic syndrome (6) Hypertension: CODE(S): I10 - Essential (primary) hypertension QUALIFIERS: Hypertension type: primary hypertension Qualified Code(s): I10 - Essential (primary) hypertension PLAN: Plan Patient seen and evaluated Patient currently demonstrates single open area of superficial ulceration measuring 0.5 cm x 2.5 cm x 0.1 cm secondary to skin tear.remainder of skin however does remain friable secondary to his previously healed skin tears to which he is understanding of risk of reulceration. There is still some venous scant weeping of serous fluid secondary to significant edema. Cristela was applied to the wound bed and 3M compression wrap applied to bilateral lower extremities. He was instructed to not get this wet and utilize cast bag when showering to remain compliant. He did continues to tolerate the 3M compression wrap well and did undergo dressing change this past Wednesday. Nursing reports calf circumference measurement has again decreased versus previous visit and treatment is improving his edema. Discussed with the patient and his grandmother today applying for Farrow wrap and lymphedema pumps to aid in controlling lower extremity edema and his lymphedema. Orders were placed for this today, 08/31/2024. I have previously discussed with him it is imperative for him to begin diet and weight control. He is currently not diabetic but I have discussed with him that with metabolic syndrome he is at higher risk of development of diabetes. Most recent A1c was 5.9%. Discussed with weight loss he would be able to prevent onset of early diabetes, improve his blood pressure, and improve his lymphedema and his venous insufficiency. Discussed he will always likely require compression stocking to aid in control of his edema and may require the use of lymphedema pumps. He is understanding of this. Discussed continued evaluation to ensure recidivism of his previous wounds do not occur. He is in agreement with this plan. He did previously undergo venous studies on 08/21/2024. 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 Left common femoral vein incompetent, left great saphenous vein segmentally incompetent. These findings were discussed with him today. He will undergo follow-up with vascular surgery, Dr. Narayan and has been scheduled for LEAS/Venous studies with CTA angiogram. The following work up and care recommendations were made: DressinM compression wrap. Do not get wet. Utilize cast bag when showering to remain compliant Wash: Do not get wet Tissue growth optimization: None Offload: 3M compression wrap with eventual transition into compression stockings/lymphedema pump Vascular: Do not feel vascular status is impacting healing status. Venous stasis remains difficult in treatment. Edema: 3M compression wrap with eventual transition into compression stocking/lymphedema pump. Continue to elevate lower extremities when at rest to aid in edema control. Infection: No signs of infection Pain: No pain currently. May take [id number] Tylenol Extra Strength for any discomfort Host factors: Metabolic syndrome, morbid obesity, venous insufficiency/stasis, lymphedema, and hypertension all affect healing status He will return for nurse visit on Wednesday09/04/2024 for change of bilateral 3M compression dressing. I answered all the patient's questions. To return to the wound healing center in 1 week or call sooner if the patient has any questions or concerns.
[2024-09-04 09:36] VITALS: BP 185/88; PULSE 99; RESP 18; TEMP 37.1; BMI 66.4
== END 2024-09-04 23:59 | disposition home or self-care (01) ==
LOC: WC 09:45
PROVIDERS: PCP Physician Assistant; Referring Provider Physician Assistant; Visit Provider Student in an Organized Health Care Education/Training Program
DX: I89.0 Lymphedema, not elsewhere classified (principal); E66.01 Morbid (severe) obesity due to excess calories; Z68.44 Body mass index [BMI] 60.0-69.9, adult; I87.2 Venous insufficiency (chronic) (peripheral); E88.810 Metabolic syndrome; I10 Essential (primary) hypertension; R60.0 Localized edema; Z79.899 Other long term (current) drug therapy; Z79.85 Long-term (current) use of injectable non-insulin antidiabetic drugs
CPT/HCPCS: 29581; 99213; 99214; G0463

== ENCOUNTER → 2024-09-05 | Outpatient (CLI) | payer MEDICAID, SELFPAY ==
--- NOTE | 2024-09-05 15:49 | CT_ITS ---
PROCEDURE: CTA PELVIS W/WO CONTRAST 09/05/2024 REASON FOR EXAM: UNILATERAL SWELLING AND SKIN CHANGES Left leg swelling and infection. TECHNIQUE: CTA imaging of the pelvis with intravenous contrast. Coronal and Sagittal reconstruction series were provided. 3D, 3D post processing, 3D reconstructions, Maximum intensity projection (MIPs) Volume rendering and Shaded surface rendering was provided. CONTRAST: Isovue-300 VOLUME: 100mL One or more dose reduction techniques were used (e.g., Automated exposure control, adjustment of the mA and/or kV according to patient size, use of iterative reconstruction technique). RADIATION DOSE SUMMARY: CTDlvol: 35 mGy DLP: 1359.68 mGycm COMPARISON: None FINDINGS: Distal Abdominal Aorta: Unremarkable. Common Iliacs: Unremarkable. External Iliacs: Unremarkable. Internal iliacs: Unremarkable. Other Findings: Small bilateral inguinal lymph nodes. The patient is status post hysterectomy. Soft tissue prominence along the dependent portion of the lower back and pelvis suggestive of possible subcutaneous edema. Status post hysterectomy. Questionable small gallstones. CT/CTA Pelvis W/WO Contrast IMPRESSION: No vascular abnormality is seen. Reading Location: [place] [id number]
== END | disposition home or self-care (01) ==
LOC: CT 15:47
PROVIDERS: PCP Physician Assistant; Referring Provider Physician Assistant; Visit Provider Physician Assistant
DX: I89.0 Lymphedema, not elsewhere classified (principal); I87.2 Venous insufficiency (chronic) (peripheral)
CPT/HCPCS: 72191; Q9967

== ENCOUNTER 2024-10-02 10:45 | Outpatient (RCR) | payer MEDICAID, SELFPAY ==
[2024-09-05 00:32] VITALS: BP 185/88; PULSE 99; RESP 18; TEMP 37.1; BMI 66.4
[2024-09-07 09:55] VITALS: BP 158/74; PULSE 94; RESP 16; TEMP 36.4; BMI 66.4
--- NOTE | 2024-09-07 13:04 | PCM.WC.PN ---
History of Present Illness Date of Service: 09/07/24 Chief Complaint: Left lower extremity venous ulcerations History of Wound: Patient is a 19-year-old male who presents to the wound care center today by referral from his SRINIVASA Greer. Reports that his legs are swollen and more painful. He was placed on antibiotic prior and had been elevating his legs more and using Burke wraps for compression and reports some improvement in this. States that the legs do have some yellow serous fluid drainage and tend to weep. He did report history of multiple ulcerations however these have improved with the previously stated treatment. He continues to attempt Burke wrap compression and will be going to vascular physician for additional recommendations. He is understanding that he has PMHx of HTN, morbid obesity, peripheral venous insufficiency, lymphedema, and metabolic syndrome are contributing to his current edema and wound problems. He denies any trauma to the lower extremities. Denies N/V/F/chills. Denies further complaints. Subjective Subjective This 19-year-old male returns to the wound care center today for continued follow-up of bilateral lymphedema left greater than right compounded by chronic venous insufficiency/stasis. He continues to tolerate the 3M compression wrap to bilateral legs and remains compliant with keeping them dry. States that he did leave his legs hanging down as he was sitting playing video games and noticed more drainage from the left leg which caused itching and thus he did scratch opening new site. He denies constitutional symptoms. Denies further complaints. Objective Data Objective Data Vital Signs: Vital Signs Temp Pulse Resp BP O2 Del Method 97.5 F L 94 16 158/74 H Room Air 09/07/24 09:55 09/07/24 09:55 09/07/24 09:55 09/07/24 09:55 09/07/24 09:55 Oxygen Delivery Method Room Air Weight: 228.611 kg Body Mass Index (BMI) 66.4 Physical Exam Const alert, oriented x3 and no apparent distress General Appearance: cooperative Nutritional Appearance: morbidly obese HEENT normocephalic Eyes General Eye: normal appearance of both eyes Neck General: normal visual inspection Lymph Lymphatic: no lymphadenopathy noted and lymphedema Resp normal respiratory effort Cardio regular rate and regular rhythm Extremity no calf tenderness Extremity Narrative: Lower extremity: Vascular: DP and PT pulses weakly palpable secondary to edema. CFT is brisk to all digits of the foot. Normal temperature gradient. Pedal hair growth is appreciated to the digits. Neurologic: Epicritic sensation intact without focal deficit noted. Musculoskeletal: Muscle strength 5 of 5 age-appropriate. There is decreased range of motion of the ankle joint with the knee extended without pain or crepitus bilateral. Full range of motion is appreciated with the knee flexed. Negative Fay test, negative Ojeda test bilateral lower extremity. Full, smooth, pain-free range of motion of the STJ, MTJ and first MTPJ is appreciated. Dermatology: There is edema to bilateral lower extremities with left lower extremity greater than the right lower extremity. Left lower extremity demonstrates healthy appearing skin with reduced turgor. Positive Stemmer sign bilateral second digit. There is hemosiderin deposition and reddish purpleish discoloration circumferentially about the left lower extremity. There are areas of previous noted healed superficial skin tears with some areas of serous drainage. Small area of superficial skin tear secondary to his edema anterior medial left lower extremity and larger area of superficial ulceration posterior lower extremity. No signs of infection. Skin no rashes or lesions noted General Skin Exam: venous stasis and dermatitis Neuro moves all extremities Debridement Note Debridement Note No debridement was completed: No debridement was completed today Post-Debridement Measurements and Additional Note: Post-Debridement Measurements/Treatment - Nurse 1 - General Ulcer Assessment Start: 09/07/24 09:55 Freq: Status: Active Protocol: ANNA.[email or web address] Activity Type Activity Date Activity User E-sign Co-sign Detail Recorded Client Recorded Date Recorded By Document 09/07/24 09:55 KW [id number] 09/07/24 10:06 KW 09/07/24 09:55 - Today's Visit Information Type of service Follow-up Visit (Physician/HEALTH EDUCATION COORDINATOR ) Arrival Mode Ambulatory Accompanied by grandmother Patient Identification Verified (Name & Yes ) Height and Weight Body Mass Index (BMI) 66.4 BMI Classification Obese Vital Signs Temperature (97.8 F-99.1 F) 97.5 F L Temperature Source Temporal Pulse Rate (60-100) 94 Pulse Location Monitor Respiratory Rate (12-18) 16 Respiratory rate source Observation Oxygen Delivery Method Room Air Blood Pressure (90/60-120/80) 158/74 H Blood Pressure Mean (mm Hg) 102 Source Monitor Position Semi-Fowlers Blood Pressure Location Right Forearm History Since Last Visit- (Skip if this is Patient's initial visit) Have you changed medications since your No last visit? Any new allergies or adverse reactions No Had a fall/change in ADL's that may No increase risk of falls Signs or symptoms of abuse and/or No neglect since last visit Have you been in the hospital since your No last visit? Has dressing in place as prescribed Yes Has compression in place as prescribed Yes Has offloadiing in place as prescribed N/A Experienced any changes in pain level or No management Left Footwear Regular Shoe Right Footwear Regular Shoe Pain Scale: 0-10 Numeric Is Patient Pain Free? Yes - Nurse 1 - General Ulcer Measurement Start: 09/07/24 09:55 Freq: Status: Active Protocol: Activity Type Activity Date Activity User E-sign Co-sign Detail Recorded Client Recorded Date Recorded By Document 09/07/24 09:55 [id number] 09/07/24 10:06 09/07/24 09:55 Wound Center Nurse 1 #1- L MED LE -Current Size (cm) - Length 0.1 -Current Size (cm) - Width 0.1 -Current Size (cm) - Depth 0.1 -Total Square Cm 0.01 -Photo Taken Yes -Exudate Amt Small -Wound Margin Distinct, Outline Attached -Granulation Amt Large (67-100%) -Granulation Quality [place] -Necrosis Amt None Present (0 %) -Structure Exposed N/A -Texture (Mellissa-wound Skin Appearance) Excoriation, Scarring -Moisture (Mellissa-wound Skin Appearance) Dry/Scaly -Color (Mellissa-wound Skin Appearance) Hemosiderin Staining -Temperature (Mellissa-wound Skin No Abnormality Appearance) (Pt Warm) -Ulcer Cleansing Soap and Water -Foul Odor after Cleansing No -Anesthetic Used 5% Lidocaine Gel Right Calf (cm) 56.7 Right Ankle (cm) 32.5 Left Calf (cm) 56.5 Left Ankle (cm) 32 WC - Nurse 2 - General Ulcer CM Notes Start: 09/07/24 09:55 Freq: Status: Active Protocol: Activity Type Activity Date Activity User E-sign Co-sign Detail Recorded Client Recorded Date Recorded By Document 09/07/24 10:21 [facility] [id number] 09/07/24 10:25 [facility] 09/07/24 10:21 Wound Center Nurse 2 #2- L POST LE -Time 10:22 -Post Debridement (cm) - Length 9 -Post Debridement (cm) - Width 7 -Post Debridement (cm) - Depth 0.1 -Total Square (Post) (cm) 63 -Area of Debridement (cm) - Length 9 -Area of Debridement (cm) - Width 7 -Total Square (Area) (cm) 63 -Wound/Ulcer Outcome Not Healed #1- L MED LE -Time 10:21 -Post Debridement (cm) - Length 2 -Post Debridement (cm) - Width 1 -Post Debridement (cm) - Depth 0.1 -Total Square (Post) (cm) 2 -Area of Debridement (cm) - Length 2 -Area of Debridement (cm) - Width 1 -Total Square (Area) (cm) 2 -Tunneling No -Undermining/Tunneling No -Circular Undermining No -Wound/Ulcer Outcome Not Healed -Bleeding Controlled with NA Pain Scale: 0-10 Numeric Is Patient Pain Free? Yes - Nurse 3 - General Ulcer D/C NN Start: 09/07/24 09:55 Freq: Status: Active Protocol: Activity Type Activity Date Activity User E-sign Co-sign Detail Recorded Client Recorded Date Recorded By Document 09/07/24 10:43 DL [id number] 09/07/24 10:47 DL 09/07/24 10:43 Wound Care Center Nurse 3 #2- L POST LE -Ulcer Cleansing Soap and Water -Other Dressing Unna Boot #1- L MED LE -Ulcer Cleansing Soap and Water -Other Dressing Unna Boot RLE -Multi-Layered Wrap Application Multi-Layer Comp - Right ($ ) -Multi-Layer Compression Right (Qty 1 applied) LLE -Multi-Layered Wrap Application Unna Boot - Left -Unna- Left (Qty applied) 1 Treatment Response Procedure Tolerated Well Pain Scale: 0-10 Numeric Is Patient Pain Free? Yes - Visit Discharge Discharge Condition Stable Ambulatory Status Ambulatory Transportation Private Auto Assessment/Plan Assessment/Plan (1) Non-pressure chronic ulcer of left calf limited to breakdown of skin: CODE(S): L97.221 - Non-pressure chronic ulcer of left calf limited to breakdown of skin (2) Venous (peripheral) insufficiency: CODE(S): I87.2 - Venous insufficiency (chronic) (peripheral) (3) Lymphedema of left lower extremity: CODE(S): I89.0 - Lymphedema, not elsewhere classified (4) Morbid obesity: CODE(S): E66.01 - Morbid (severe) obesity due to excess calories (5) Metabolic syndrome: CODE(S): E88.810 - Metabolic syndrome PLAN: Plan Patient seen and evaluated Patient currently demonstrates two open areas of superficial ulceration. Anterior medial measuring 2.0 cm x 1.0 cm x 0.1 cm secondary to skin tear and Posterior lower extremity measuring 9.0 cm x 7.0 cm x 0.1 cm. Remainder of skin however does remain friable secondary to his previously healed skin tears to which he is understanding of risk of reulceration. There is still some venous scant weeping of serous fluid secondary to significant edema. Cristela was applied to the wound bed and Unna boot compression wrap applied to left lower extremity. 3M compression to right lower extremities. He was instructed to not get this wet and utilize cast bag when showering to remain compliant. He did continues to tolerate the 3M compression wrap well and did undergo dressing change this past Wednesday. Nursing reports calf circumference measurement has again decreased versus previous visit and treatment is improving his edema. I have previously discussed with the patient and his grandmother applying for [place] wrap and lymphedema pumps to aid in controlling lower extremity edema and his lymphedema. Orders were placed for this on 08/31/2024. I have previously discussed with him it is imperative for him to begin diet and weight control. He is currently not diabetic but I have discussed with him that with metabolic syndrome he is at higher risk of development of diabetes. Most recent A1c was 5.9%. Discussed with weight loss he would be able to prevent onset of early diabetes, improve his blood pressure, and improve his lymphedema and his venous insufficiency. Discussed he will always likely require compression stocking to aid in control of his edema and may require the use of lymphedema pumps. He is understanding of this. Discussed continued evaluation to ensure recidivism of his previous wounds do not occur. He is in agreement with this plan. He did previously undergo venous studies on 08/21/2024. 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 Left common femoral vein incompetent, left great saphenous vein segmentally incompetent. These findings were discussed with him today. He will undergo follow-up with vascular surgery, Dr. Narayan and has been scheduled for LEAS/Venous studies with CTA angiogram. The following work up and care recommendations were made: DressinM compression wrap right lower extremity, Unna boot left lower extremity. Do not get wet. Utilize cast bag when showering to remain compliant Wash: Do not get wet Tissue growth optimization: None Offload: 3M compression wrap/Unna boot with eventual transition into compression stockings/lymphedema pump Vascular: Do not feel vascular status is impacting healing status. Venous stasis remains difficult in treatment. Edema: 3M compression wrap/Unna boot with eventual transition into compression stocking/lymphedema pump. Continue to elevate lower extremities when at rest to aid in edema control. Infection: No signs of infection Pain: No pain currently. May take [id number] Tylenol Extra Strength for any discomfort Host factors: Metabolic syndrome, morbid obesity, venous insufficiency/stasis, lymphedema, and hypertension all affect healing status He will return for nurse visit on Wednesday09/11/2024 for change of right lower extremity 3M compression dressing and left lower extremity Unna boot. I answered all the patient's questions. To return to the wound healing center in 1 week or call sooner if the patient has any questions or concerns.
[2024-09-11 10:48] VITALS: BP 149/101; PULSE 105; RESP 16; TEMP 36.8; BMI 66.4
[2024-09-14 09:51] VITALS: BP 153/73; PULSE 99; RESP 18; TEMP 37.7; BMI 66.4
--- NOTE | 2024-09-14 13:03 | PCM.WC.PN ---
History of Present Illness Date of Service: 09/14/24 Chief Complaint: Left lower extremity venous ulcerations History of Wound: Patient is a 19-year-old male who presents to the wound care center today by referral from his SRINIVASA Greer. Reports that his legs are swollen and more painful. He was placed on antibiotic prior and had been elevating his legs more and using Burke wraps for compression and reports some improvement in this. States that the legs do have some yellow serous fluid drainage and tend to weep. He did report history of multiple ulcerations however these have improved with the previously stated treatment. He continues to attempt Burke wrap compression and will be going to vascular physician for additional recommendations. He is understanding that he has PMHx of HTN, morbid obesity, peripheral venous insufficiency, lymphedema, and metabolic syndrome are contributing to his current edema and wound problems. He denies any trauma to the lower extremities. Denies N/V/F/chills. Denies further complaints. Subjective Subjective This 19-year-old male returns to the wound care center today for continued follow-up of bilateral lymphedema left greater than right compounded by chronic venous insufficiency/stasis. He continues to tolerate the 3M compression wrap to right lower extremity and Unna boot to left lower extremity and remains compliant with keeping them dry. He does state that he showered early this morning and water did leak into the cast bag of his left leg soaking his dressings, he was unable to remove the dressing himself and upon removal in wound care center did cause several spots to tear with his fragile skin. He denies constitutional symptoms. Denies further complaints. Objective Data Objective Data Vital Signs: Vital Signs Temp Pulse Resp BP O2 Del Method 99.8 F H 99 18 153/73 H Room Air 09/14/24 09:51 09/14/24 09:51 09/14/24 09:51 09/14/24 09:51 09/14/24 09:51 Oxygen Delivery Method Room Air Weight: 228.611 kg Body Mass Index (BMI) 66.4 Physical Exam Const alert, oriented x3 and no apparent distress General Appearance: cooperative Nutritional Appearance: morbidly obese HEENT normocephalic Eyes General Eye: normal appearance of both eyes Neck General: normal visual inspection Lymph Lymphatic: no lymphadenopathy noted and lymphedema Resp normal respiratory effort Cardio regular rate and regular rhythm Extremity no calf tenderness Extremity Narrative: Lower extremity: Vascular: DP and PT pulses weakly palpable secondary to edema. CFT is brisk to all digits of the foot. Normal temperature gradient. Pedal hair growth is appreciated to the digits. Neurologic: Epicritic sensation intact without focal deficit noted. Musculoskeletal: Muscle strength 5 of 5 age-appropriate. There is decreased range of motion of the ankle joint with the knee extended without pain or crepitus bilateral. Full range of motion is appreciated with the knee flexed. Negative Fay test, negative Ojeda test bilateral lower extremity. Full, smooth, pain-free range of motion of the STJ, MTJ and first MTPJ is appreciated. Dermatology: There is edema to bilateral lower extremities with left lower extremity greater than the right lower extremity. Left lower extremity demonstrates healthy appearing skin with reduced turgor. Positive Stemmer sign bilateral second digit. There is hemosiderin deposition and reddish purpleish discoloration circumferentially about the left lower extremity. There are areas of previous noted healed superficial skin tears with some areas of serous drainage. New circumferential superficial skin tears of the left lower extremity secondary to his edema and getting Unna boot dressing wet causing skin to remove during removal. No signs of infection. Skin no rashes or lesions noted General Skin Exam: venous stasis and dermatitis Neuro moves all extremities Debridement Note Debridement Note No debridement was completed: No debridement was completed today Post-Debridement Measurements and Additional Note: Post-Debridement Measurements/Treatment [facility] Nurse 1 - General Ulcer Assessment Start: 09/07/24 09:55 Freq: Status: Active Protocol: .LOWEX Activity Type Activity Date Activity User E-sign Co-sign Detail Recorded Client Recorded Date Recorded By Document 09/07/24 09:55 [id number] 09/07/24 10:06 Document 09/11/24 10:48 [facility] [id number] 09/11/24 10:56 [facility] Document 09/14/24 09:51 KW [id number] 09/14/24 10:03 KW 09/07/24 09/11/24 09/14/24 09:55 10:48 09:51 - Today's Visit Information Type of service Follow-up Visit Nurse-only Follow-up Visit (Physician/RETAIL ADVERTISING SALES MANAGER Visit (Physician/RETAIL ADVERTISING SALES MANAGER ) ) Arrival Mode Ambulatory Ambulatory Ambulatory Transfer Assistance None Accompanied by grandmother grandma Patient Identification Verified (Name & Yes Yes Yes ) Height and Weight Body Mass Index (BMI) 66.4 66.4 66.4 BMI Classification Obese Obese Obese Vital Signs Temperature (97.8 F-99.1 F) 97.5 F L 98.3 F 99.8 F H Temperature Source Temporal Temporal Temporal Pulse Rate (60-100) 94 105 H 99 Pulse Location Monitor Monitor Monitor Respiratory Rate (12-18) 16 16 18 Respiratory rate source Observation Observation Observation Oxygen Delivery Method Room Air Room Air Room Air Blood Pressure (90/60-120/80) 158/74 H 149/101 H 153/73 H Blood Pressure Mean (mm Hg) 102 117 99 Source Monitor Monitor Monitor Position Semi-Fowlers Sitting Semi-Fowlers Blood Pressure Location Right Forearm Right Forearm Right Forearm History Since Last Visit- (Skip if this is Patient's initial visit) Have you changed medications since your No No No last visit? Any new allergies or adverse reactions No No No Had a fall/change in ADL's that may No No No increase risk of falls Signs or symptoms of abuse and/or No No No neglect since last visit Have you been in the hospital since your No No No last visit? Has dressing in place as prescribed Yes Yes Yes Has compression in place as prescribed Yes Yes Yes Has offloadiing in place as prescribed N/A N/A N/A Experienced any changes in pain level or No No No management Left Footwear Regular Shoe Regular Shoe Regular Shoe Right Footwear Regular Shoe Regular Shoe Regular Shoe Pain Scale: 0-10 Numeric Is Patient Pain Free? Yes Yes Yes WC - Nurse 1 - General Ulcer Measurement Start: 09/07/24 09:55 Freq: Status: Active Protocol: Activity Type Activity Date Activity User E-sign Co-sign Detail Recorded Client Recorded Date Recorded By Document 09/07/24 09:55 KW [id number] 09/07/24 10:06 KW Document 09/11/24 10:48 [facility] [id number] 09/11/24 10:56 [facility] Document 09/14/24 09:51 KW [id number] 09/14/24 10:03 KW 09/07/24 09/11/24 09/14/24 09:55 10:48 09:51 Wound Center Nurse 1 #2- L POST LE -Exudate Amt Small -Exudate Type Serosanguineous -Wound Margin Distinct, Outline Attached -Granulation Amt Large (67-100%) -Granulation Quality Red -Texture (Mellissa-wound Skin Appearance) Assessed -Moisture (Mellissa-wound Skin Appearance) Assessed -Color (Mellissa-wound Skin Appearance) Assessed, Erythema, Hemosiderin Staining -Temperature (Mellissa-wound Skin No Abnormality Appearance) (Pt Warm) -Tenderness on Palpation (Mellissa-wound No Skin Appearance) -Ulcer Cleansing Soap and Water -Foul Odor after Cleansing No -Wound Comment(s) unna boot circ. cluster. #1- L MED LE -Current Size (cm) - Length 0.1 -Current Size (cm) - Width 0.1 -Current Size (cm) - Depth 0.1 -Total Square Cm 0.01 -Photo Taken Yes -Exudate Amt Small Small -Exudate Type Serosanguineous -Wound Margin Distinct, Distinct, Outline Outline Attached Attached -Granulation Amt Large (67-100%) Large (67-100%) -Granulation Quality [place] Red -Necrosis Amt None Present (0 %) -Structure Exposed N/A -Texture (Mellissa-wound Skin Appearance) Excoriation, Assessed Scarring -Moisture (Mellissa-wound Skin Appearance) Dry/Scaly Assessed -Color (Mellissa-wound Skin Appearance) Hemosiderin Assessed, Staining Erythema, Hemosiderin Staining -Temperature (Mellissa-wound Skin No Abnormality No Abnormality Appearance) (Pt Warm) (Pt Warm) -Tenderness on Palpation (Mellissa-wound No Skin Appearance) -Ulcer Cleansing Soap and Water Soap and Water -Foul Odor after Cleansing No No -Anesthetic Used 5% Lidocaine Gel -Wound Comment(s) shawna boot circ. cluster Lower Limb Edema Present Yes Right Calf (cm) 56.7 61.6 63 Right Ankle (cm) 32.5 33.7 33.5 Left Calf (cm) 56.5 60.2 64 Left Ankle (cm) 32 32.3 34 WC - Nurse 2 - General Ulcer CM Notes Start: 09/07/24 09:55 Freq: Status: Active Protocol: Activity Type Activity Date Activity User E-sign Co-sign Detail Recorded Client Recorded Date Recorded By Document 09/07/24 10:21 BM [id number] 09/07/24 10:25 BMF Document 09/14/24 10:08 BM [id number] 09/14/24 10:15 BMF 09/07/24 09/14/24 10:21 10:08 Wound Center Nurse 2 #2- L POST LE -Time 10:22 10:08 -Post Debridement (cm) - Length 9 -Post Debridement (cm) - Width 7 -Post Debridement (cm) - Depth 0.1 -Total Square (Post) (cm) 63 -Area of Debridement (cm) - Length 9 -Area of Debridement (cm) - Width 7 -Total Square (Area) (cm) 63 -Wound/Ulcer Outcome Not Healed #1- L MED LE -Time 10:21 -Post Debridement (cm) - Length 2 -Post Debridement (cm) - Width 1 -Post Debridement (cm) - Depth 0.1 -Total Square (Post) (cm) 2 -Area of Debridement (cm) - Length 2 -Area of Debridement (cm) - Width 1 -Total Square (Area) (cm) 2 -Tunneling No -Undermining/Tunneling No -Circular Undermining No -Wound/Ulcer Outcome Not Healed -Bleeding Controlled with NA #3- LLE CIRCUMFERENTIAL -Time 10:11 -Procedure Performed No -Post Debridement (cm) - Length 15 -Post Debridement (cm) - Width 50 -Post Debridement (cm) - Depth 0.1 -Total Square (Post) (cm) 750 -Area of Debridement (cm) - Length 15 -Area of Debridement (cm) - Width 50 -Total Square (Area) (cm) 750 -Tunneling No -Undermining/Tunneling No -Circular Undermining No -Wound/Ulcer Outcome Not Healed -Bleeding Controlled with NA Pain Scale: 0-10 Numeric Is Patient Pain Free? Yes Yes WC - Nurse 3 - General Ulcer D/C NN Start: 09/07/24 09:55 Freq: Status: Active Protocol: Activity Type Activity Date Activity User E-sign Co-sign Detail Recorded Client Recorded Date Recorded By Document 09/07/24 10:43 DL [id number] 09/07/24 10:47 DL Document 09/11/24 10:48 [facility] [id number] 09/11/24 10:56 BMF Document 09/14/24 10:24 DL [id number] 09/14/24 10:38 DL 09/07/24 09/11/24 09/14/24 10:43 10:48 10:24 Wound Care Center Nurse 3 #2- L POST LE -Ulcer Cleansing Soap and Water -Other Dressing Unna Boot #1- L MED LE -Ulcer Cleansing Soap and Water -Other Dressing Unna Boot #3- LLE CIRCUMFERENTIAL -Ulcer Cleansing Soap and Water -Foul Odor after Cleansing No -Primary Dressing Applied Optilok 5x5 1/2 -Other Dressing UNNA BOOT -Optilok 5x5 1/2 1 RLE -Multi-Layered Wrap Application Multi-Layer Multi-Layer Comp - Right ($ Comp - Right ($ ) ) -Multi-Layer Compression Right (Qty 1 1 applied) LLE -Multi-Layered Wrap Application Unna Boot - Unna Boot - Left Left -Unna- Left (Qty applied) 1 1 Treatment Response Procedure Procedure Tolerated Well Tolerated Well Pain Scale: 0-10 Numeric Is Patient Pain Free? 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 Circumferential ulceration secondary to skin tear measures 50 cm x 15 cm x 0.1 cm. Remainder of skin however does remain friable secondary to his previously healed skin tears to which he is understanding of risk of reulceration. There is still some venous scant weeping of serous fluid secondary to significant edema. Adaptic and Suprasorb was applied to the wound bed and Unna boot compression wrap applied to left lower extremity. 3M compression to right lower extremities. He was instructed to not get this wet and utilize cast bag when showering to remain compliant. He did continues to tolerate the 3M compression wrap well and did undergo dressing change this past Wednesday. Does have some increased edema this week versus his previous visit. I have previously discussed with the patient and his grandmother applying for [place] wrap and lymphedema pumps to aid in controlling lower extremity edema and his lymphedema. Orders were placed for this on 08/31/2024. I discussed again that it has been at least 6 weeks following standard care of his multiple skin tears/ulcerative sites secondary to chronic venous stasis (VLUs) and in addition to his lipodermatosclerosis/phlebolymphedema, positive Stemmer sign of the second digit and stasis dermatitis plus hyperpigmentation/hemosiderin deposition within the left lower extremity he would qualify for a lymphedema pump. We have attempted 6 weeks of compression therapy in form of 3M compression wrap and Unna boot compression. Prior to this he had been attempting Burke wrap compression. 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 He does have +4 pitting edema of bilateral lower extremities. He reports having his VLU of the left lower extremity for roughly 8 weeks without improvement. His lymphedema has been present for greater than 6 months but is becoming more of a problem with continued swelling/enlargement of the lower extremities. Debridement has been performed in addition to compression treatment stated above and Cristela to the wound sites however his wounds have either remain unchanged or have increased over the last 2 weeks due to continued significant symptoms of his phlebolymphedema and difficulty maintaining compression therapy. Due to patient's current course of therapy without significant improvement it is likely he would require a thigh applied [id number] device to aid in healing of his wounds to optimize the current SOC dressings, improve blood flow to the lower extremity, decreased pain, and again aid in his healing of wounds. I have previously discussed with him it is imperative for him to begin diet and weight control. He is currently not diabetic but I have discussed with him that with metabolic syndrome he is at higher risk of development of diabetes. Most recent A1c was 5.9%. Discussed with weight loss he would be able to prevent onset of early diabetes, improve his blood pressure, and improve his lymphedema and his venous insufficiency. Discussed he will always likely require compression stocking to aid in control of his edema and may require the use of lymphedema pumps. He is understanding of this. Discussed continued evaluation to ensure recidivism of his previous wounds do not occur. He is in agreement with this plan. He did previously undergo venous studies on 08/21/2024. 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 Left common femoral vein incompetent, left great saphenous vein segmentally incompetent. These findings were discussed with him today. He will undergo follow-up with vascular surgery, Dr. Narayan and has been scheduled for LEAS/Venous studies with CTA angiogram which demonstrated no proximal blockages. He will see Dr. Narayan September 19 and then will follow again with CRIS Diaz on September 28. Due to multiple areas that are open he was prescribed a course of oral doxycycline 100 mg twice daily x 14 days. Will continue to follow and monitor. The following work up and care recommendations were made: DressinM compression wrap right lower extremity, Unna boot left lower extremity. Do not get wet. Utilize cast bag when showering to remain compliant Wash: Do not get wet Tissue growth optimization: None Offload: 3M compression wrap/Unna boot with eventual transition into compression stockings/lymphedema pump Vascular: Do not feel vascular status is impacting healing status. Venous stasis remains difficult in treatment. Edema: 3M compression wrap/Unna boot with eventual transition into compression stocking/lymphedema pump. Continue to elevate lower extremities when at rest to aid in edema control. Infection: No signs of infection Pain: No pain currently. May take [id number] Tylenol Extra Strength for any discomfort Host factors: Metabolic syndrome, morbid obesity, venous insufficiency/stasis, lymphedema, and hypertension all affect healing status He will return for nurse visit on Wednesday09/18/2024 for change of right lower extremity 3M compression dressing and left lower extremity Unna boot. I answered all the patient's questions. To return to the wound healing center in 1 week or call sooner if the patient has any questions or concerns.
[2024-09-18 10:59] VITALS: BP 142/103; PULSE 116; RESP 20; TEMP 36.4; BMI 66.4
--- NOTE | 2024-09-18 14:27 | WC ---
PHOTO 09/14/24 DRAGAN
[2024-09-21 09:58] VITALS: BP 157/101; PULSE 97; RESP 20; TEMP 36.9; BMI 66.4
--- NOTE | 2024-09-21 11:18 | PN.PCM_ITS ---
History of Present Illness Date of Service: 09/21/24 Chief Complaint: Left lower extremity venous ulcerations History of Wound: Patient is a 19-year-old male who presents to the wound care center today by referral from his SRINIVASA Greer. Reports that his legs are swollen and more painful. He was placed on antibiotic prior and had been elevating his legs more and using Burke wraps for compression and reports some improvement in this. States that the legs do have some yellow serous fluid drainage and tend to weep. He did report history of multiple ulcerations however these have improved with the previously stated treatment. He continues to attempt Burke wrap compression and will be going to vascular physician for additional recommendations. He is understanding that he has PMHx of HTN, morbid obesity, peripheral venous insufficiency, lymphedema, and metabolic syndrome are contributing to his current edema and wound problems. He denies any trauma to the lower extremities. Denies N/V/F/chills. Denies further complaints. Subjective Subjective This 19-year-old male returns to the wound care center today for continued follow-up of bilateral lymphedema left greater than right compounded by chronic venous insufficiency/stasis. He continues to tolerate the 3M compression wrap to right lower extremity and Unna boot to left lower extremity and remains compliant with keeping them dry. He did receive his Farrow wraps and brought them with him today. States that he was able to keep all dressings clean and dry from the last appointment. He does note improvement in the appearance of his left lower extremity. He denies constitutional symptoms. Denies further complaints. Objective Data Objective Data Vital Signs: Vital Signs Temp Pulse Resp BP O2 Del Method 98.5 F 97 20 H 157/101 H Room Air 09/21/24 09:58 09/21/24 09:58 09/21/24 09:58 09/21/24 09:58 09/14/24 09:51 Oxygen Delivery Method Room Air Weight: 228.611 kg Body Mass Index (BMI) 66.4 Physical Exam Const alert, oriented x3 and no apparent distress General Appearance: cooperative Nutritional Appearance: morbidly obese HEENT normocephalic Eyes General Eye: normal appearance of both eyes Neck General: normal visual inspection Lymph Lymphatic: no lymphadenopathy noted and lymphedema Resp normal respiratory effort Cardio regular rate and regular rhythm Extremity no calf tenderness Extremity Narrative: Lower extremity: Vascular: DP and PT pulses weakly palpable secondary to edema. CFT is brisk to all digits of the foot. Normal temperature gradient. Pedal hair growth is appreciated to the digits. Neurologic: Epicritic sensation intact without focal deficit noted. Musculoskeletal: Muscle strength 5 of 5 age-appropriate. There is decreased range of motion of the ankle joint with the knee extended without pain or crepitus bilateral. Full range of motion is appreciated with the knee flexed. Negative Fay test, negative Ojeda test bilateral lower extremity. Full, smooth, pain-free range of motion of the STJ, MTJ and first MTPJ is appreciated. Dermatology: There is edema to bilateral lower extremities with left lower extremity greater than the right lower extremity. Left lower extremity demonstrates healthy appearing skin with reduced turgor. Positive Stemmer sign bilateral second digit. There is hemosiderin deposition and reddish-purpleish discoloration circumferentially about the left lower extremity. There are areas of previous noted healed superficial skin tears with some areas of serous drainage. New circumferential superficial skin tears of the left lower extremity secondary to his edema and getting Unna boot dressing wet causing skin to remove during removal from previous week have improved with epithelialization noted. No signs of infection. There is improvement in his stasis dermatitis. Skin no rashes or lesions noted General Skin Exam: venous stasis and dermatitis Neuro moves all extremities Debridement Note Debridement Note No debridement was completed: No debridement was completed today Post-Debridement Measurements and Additional Note: Post-Debridement Measurements/Treatment - Nurse 1 - General Ulcer Assessment Start: 09/07/24 09:55 Freq: Status: Active Protocol: .HIRO Activity Type Activity Date Activity User E-sign Co-sign Detail Recorded Client Recorded Date Recorded By Document 09/07/24 09:55 KW [id number] 09/07/24 10:06 KW Document 09/11/24 10:48 BMF [id number] 09/11/24 10:56 BMF Document 09/14/24 09:51 KW [id number] 09/14/24 10:03 KW Document 09/18/24 10:59 DL [id number] 09/18/24 11:28 DL Document 09/21/24 09:58 DL [id number] 09/21/24 10:05 DL 09/07/24 09/11/24 09/14/24 09:55 10:48 09:51 - Today's Visit Information Type of service Follow-up Visit Nurse-only Follow-up Visit (Physician/WEBBING INSPECTOR Visit (Physician/WEBBING INSPECTOR ) ) Arrival Mode Ambulatory Ambulatory Ambulatory Transfer Assistance None Accompanied by grandmother grandma Patient Identification Verified (Name & Yes Yes Yes ) Patient Requires Transmission-Based Precautions Height and Weight Body Mass Index (BMI) 66.4 66.4 66.4 BMI Classification Obese Obese Obese Vital Signs Temperature (97.8 F-99.1 F) 97.5 F L 98.3 F 99.8 F H Temperature Source Temporal Temporal Temporal Pulse Rate (60-100) 94 105 H 99 Pulse Location Monitor Monitor Monitor Respiratory Rate (12-18) 16 16 18 Respiratory rate source Observation Observation Observation Oxygen Delivery Method Room Air Room Air Room Air Blood Pressure (90/60-120/80) 158/74 H 149/101 H 153/73 H Blood Pressure Mean (mm Hg) 102 117 99 Source Monitor Monitor Monitor Position Semi-Fowlers Sitting Semi-Fowlers Blood Pressure Location Right Forearm Right Forearm Right Forearm History Since Last Visit- (Skip if this is Patient's initial visit) Have you changed medications since your No No No last visit? Any new allergies or adverse reactions No No No Had a fall/change in ADL's that may No No No increase risk of falls Signs or symptoms of abuse and/or No No No neglect since last visit Have you been in the hospital since your No No No last visit? Has dressing in place as prescribed Yes Yes Yes Has compression in place as prescribed Yes Yes Yes Has offloadiing in place as prescribed N/A N/A N/A Experienced any changes in pain level or No No No management Left Footwear Regular Shoe Regular Shoe Regular Shoe Right Footwear Regular Shoe Regular Shoe Regular Shoe Pain Scale: 0-10 Numeric Is Patient Pain Free? Yes Yes Yes 09/18/24 09/21/24 10:59 09:58 WC - Today's Visit Information Type of service Nurse-only Follow-up Visit Visit (Physician/WEBBING INSPECTOR ) Arrival Mode Ambulatory Ambulatory Transfer Assistance None None Accompanied by Patient Identification Verified (Name & Yes Yes ) Patient Requires Transmission-Based No No Precautions Height and Weight Body Mass Index (BMI) 66.4 66.4 BMI Classification Obese Obese Vital Signs Temperature (97.8 F-99.1 F) 97.6 F L 98.5 F Temperature Source Temporal Temporal Pulse Rate (60-100) 116 H 97 Pulse Location Monitor Monitor Respiratory Rate (12-18) 20 H 20 H Respiratory rate source Observation Observation Oxygen Delivery Method Blood Pressure (90/60-120/80) 142/103 H 157/101 H Blood Pressure Mean (mm Hg) 116 119 Source Monitor Monitor Position Blood Pressure Location History Since Last Visit- (Skip if this is Patient's initial visit) Have you changed medications since your No No last visit? Any new allergies or adverse reactions No No Had a fall/change in ADL's that may No No increase risk of falls Signs or symptoms of abuse and/or No No neglect since last visit Have you been in the hospital since your No No last visit? Has dressing in place as prescribed Yes Yes Has compression in place as prescribed Yes Yes Has offloadiing in place as prescribed N/A N/A Experienced any changes in pain level or No No management Left Footwear Right Footwear Pain Scale: 0-10 Numeric Is Patient Pain Free? Yes Yes WC - Nurse 1 - General Ulcer Measurement Start: 09/07/24 09:55 Freq: Status: Active Protocol: Activity Type Activity Date Activity User E-sign Co-sign Detail Recorded Client Recorded Date Recorded By Document 09/07/24 09:55 KW [id number] 09/07/24 10:06 KW Document 09/11/24 10:48 BM [id number] 09/11/24 10:56 BMF Document 09/14/24 09:51 KW [id number] 09/14/24 10:03 KW Document 09/18/24 10:59 DL [id number] 09/18/24 11:28 DL Document 09/21/24 09:58 DL [id number] 09/21/24 10:05 DL 09/07/24 09/11/24 09/14/24 09:55 10:48 09:51 Wound Center Nurse 1 #2- L POST LE -Exudate Amt Small -Exudate Type Serosanguineous -Wound Margin Distinct, Outline Attached -Granulation Amt Large (67-100%) -Granulation Quality Red -Texture (Mellissa-wound Skin Appearance) Assessed -Moisture (Mellissa-wound Skin Appearance) Assessed -Color (Mellissa-wound Skin Appearance) Assessed, Erythema, Hemosiderin Staining -Temperature (Mellissa-wound Skin No Abnormality Appearance) (Pt Warm) -Tenderness on Palpation (Mellissa-wound No Skin Appearance) -Ulcer Cleansing Soap and Water -Foul Odor after Cleansing No -Wound Comment(s) martha boot circ. cluster. #1- L MED LE -Current Size (cm) - Length 0.1 -Current Size (cm) - Width 0.1 -Current Size (cm) - Depth 0.1 -Total Square Cm 0.01 -Photo Taken Yes -Exudate Amt Small Small -Exudate Type Serosanguineous -Wound Margin Distinct, Distinct, Outline Outline Attached Attached -Granulation Amt Large (67-100%) Large (67-100%) -Granulation Quality Cobb Red -Necrosis Amt None Present (0 %) -Structure Exposed N/A -Texture (Mellissa-wound Skin Appearance) Excoriation, Assessed Scarring -Moisture (Mellissa-wound Skin Appearance) Dry/Scaly Assessed -Color (Mellissa-wound Skin Appearance) Hemosiderin Assessed, Staining Erythema, Hemosiderin Staining -Temperature (Mellissa-wound Skin No Abnormality No Abnormality Appearance) (Pt Warm) (Pt Warm) -Tenderness on Palpation (Mellissa-wound No Skin Appearance) -Ulcer Cleansing Soap and Water Soap and Water -Foul Odor after Cleansing No No -Anesthetic Used 5% Lidocaine Gel -Wound Comment(s) martha boot circ. cluster #3- LLE CIRCUMFERENTIAL -Current Size (cm) - Length -Current Size (cm) - Width -Current Size (cm) - Depth -Total Square Cm -Photo Taken -Exudate Amt -Exudate Type -Wound Margin -Structure Exposed -Texture (Mellissa-wound Skin Appearance) -Moisture (Mellissa-wound Skin Appearance) -Color (Mellissa-wound Skin Appearance) -Temperature (Mellissa-wound Skin Appearance) -Tenderness on Palpation (Mellissa-wound Skin Appearance) -Ulcer Cleansing -Foul Odor after Cleansing Lower Limb Edema Present Yes Right Calf (cm) 56.7 61.6 63 Right Ankle (cm) 32.5 33.7 33.5 Left Calf (cm) 56.5 60.2 64 Left Ankle (cm) 32 32.3 34 09/18/24 09/21/24 10:59 09:58 Wound Center Nurse 1 #2- L POST LE -Exudate Amt -Exudate Type -Wound Margin -Granulation Amt -Granulation Quality -Texture (Mellissa-wound Skin Appearance) -Moisture (Mellissa-wound Skin Appearance) -Color (Mellissa-wound Skin Appearance) -Temperature (Mellissa-wound Skin Appearance) -Tenderness on Palpation (Mellissa-wound Skin Appearance) -Ulcer Cleansing -Foul Odor after Cleansing -Wound Comment(s) #1- L MED LE -Current Size (cm) - Length -Current Size (cm) - Width -Current Size (cm) - Depth -Total Square Cm -Photo Taken -Exudate Amt -Exudate Type -Wound Margin -Granulation Amt -Granulation Quality -Necrosis Amt -Structure Exposed -Texture (Mellissa-wound Skin Appearance) -Moisture (Mellissa-wound Skin Appearance) -Color (Mellissa-wound Skin Appearance) -Temperature (Mellissa-wound Skin Appearance) -Tenderness on Palpation (Mellissa-wound Skin Appearance) -Ulcer Cleansing -Foul Odor after Cleansing -Anesthetic Used -Wound Comment(s) #3- LLE CIRCUMFERENTIAL -Current Size (cm) - Length 0.1 -Current Size (cm) - Width 0.1 -Current Size (cm) - Depth 0.1 -Total Square Cm 0.01 -Photo Taken Yes -Exudate Amt Small None Present -Exudate Type Serosanguineous -Wound Margin Indistinct, Non Indistinct, Non -Visible -Visible -Structure Exposed N/A -Texture (Mellissa-wound Skin Appearance) Excoriation, Rash -Moisture (Mellissa-wound Skin Appearance) Dry/Scaly -Color (Mellissa-wound Skin Appearance) No Abnormality -Temperature (Mellissa-wound Skin No Abnormality Appearance) (Pt Warm) -Tenderness on Palpation (Mellissa-wound No Skin Appearance) -Ulcer Cleansing Soap and Water Soap and Water -Foul Odor after Cleansing No No Lower Limb Edema Present Right Calf (cm) 60 59 Right Ankle (cm) 32.5 32.5 Left Calf (cm) 62 60 Left Ankle (cm) 32.5 33.2 WC - Nurse 2 - General Ulcer CM Notes Start: 09/07/24 09:55 Freq: Status: Active Protocol: Activity Type Activity Date Activity User E-sign Co-sign Detail Recorded Client Recorded Date Recorded By Document 09/07/24 10:21 BM [id number] 09/07/24 10:25 [facility] Document 09/14/24 10:08 BM [id number] 09/14/24 10:15 BMF Document 09/21/24 10:13 [facility] [id number] 09/21/24 10:19 BMF 09/07/24 09/14/24 09/21/24 10:21 10:08 10:13 Wound Center Nurse 2 #2- L POST LE -Time 10:22 10:08 -Post Debridement (cm) - Length 9 -Post Debridement (cm) - Width 7 -Post Debridement (cm) - Depth 0.1 -Total Square (Post) (cm) 63 -Area of Debridement (cm) - Length 9 -Area of Debridement (cm) - Width 7 -Total Square (Area) (cm) 63 -Wound/Ulcer Outcome Not Healed #1- L MED LE -Time 10:21 -Post Debridement (cm) - Length 2 -Post Debridement (cm) - Width 1 -Post Debridement (cm) - Depth 0.1 -Total Square (Post) (cm) 2 -Area of Debridement (cm) - Length 2 -Area of Debridement (cm) - Width 1 -Total Square (Area) (cm) 2 -Tunneling No -Undermining/Tunneling No -Circular Undermining No -Wound/Ulcer Outcome Not Healed -Bleeding Controlled with NA #3- LLE CIRCUMFERENTIAL -Time 10:11 10:13 -Procedure Performed No -Post Debridement (cm) - Length 15 0.1 -Post Debridement (cm) - Width 50 0.1 -Post Debridement (cm) - Depth 0.1 0.1 -Total Square (Post) (cm) 750 0.01 -Area of Debridement (cm) - Length 15 0.1 -Area of Debridement (cm) - Width 50 0.1 -Total Square (Area) (cm) 750 0.01 -Tunneling No No -Undermining/Tunneling No No -Circular Undermining No No -Wound/Ulcer Outcome Not Healed Not Healed -Bleeding Controlled with NA NA Pain Scale: 0-10 Numeric Is Patient Pain Free? Yes Yes Yes WC - Nurse 3 - General Ulcer D/C NN Start: 09/07/24 09:55 Freq: Status: Active Protocol: Activity Type Activity Date Activity User E-sign Co-sign Detail Recorded Client Recorded Date Recorded By Document 09/07/24 10:43 DL [id number] 09/07/24 10:47 DL Document 09/11/24 10:48 BMF [id number] 09/11/24 10:56 BMF Edit Result 09/11/24 10:48 BMF (1) 0000 09/14/24 15:48 BMF Document 09/14/24 10:24 DL [id number] 09/14/24 10:38 DL Document 09/18/24 10:59 DL [id number] 09/18/24 11:28 DL Document 09/21/24 09:58 DL [id number] 09/21/24 10:05 DL Document 09/21/24 10:23 DL [id number] 09/21/24 10:34 DL (1) RLE - Multi-Layered Wrap Application => Multi-Layer Comp - => Right ($) - Multi-Layer Compression Right (Qty => 1 applied) LLE - Multi-Layered Wrap Application => Unna Boot - Left - Unna- Left (Qty applied) => 1 09/07/24 09/11/24 09/14/24 10:43 10:48 10:24 Wound Care Center Nurse 3 #2- L POST LE -Ulcer Cleansing Soap and Water -Other Dressing Unna Boot #1- L MED LE -Ulcer Cleansing Soap and Water -Other Dressing Unna Boot #3- LLE CIRCUMFERENTIAL -Ulcer Cleansing Soap and Water -Foul Odor after Cleansing No -Primary Dressing Applied Optilok 5x5 1/2 -Other Dressing UNNA BOOT -Primary Dressing Covered/Secured with -Other Covering -Optilok 5x5 1/2 1 RLE -Multi-Layered Wrap Application Multi-Layer Multi-Layer Multi-Layer Comp - Right ($ Comp - Right ($ Comp - Right ($ ) ) ) -Stockings -Other -Multi-Layer Compression Right (Qty 1 1 1 applied) LLE -Multi-Layered Wrap Application Unna Boot - Unna Boot - Unna Boot - Left Left Left -Unna- Left (Qty applied) 1 1 1 Treatment Response Procedure Procedure Tolerated Well Tolerated Well Pain Scale: 0-10 Numeric Is Patient Pain Free? Yes Yes Yes WC - Visit Discharge Discharge Condition Stable Stable Ambulatory Status Ambulatory Ambulatory Transportation Private Auto Private Auto 09/18/24 09/21/24 09/21/24 10:59 09:58 10:23 Wound Care Center Nurse 3 #2- L POST LE -Ulcer Cleansing -Other Dressing #1- L MED LE -Ulcer Cleansing -Other Dressing #3- LLE CIRCUMFERENTIAL -Ulcer Cleansing Soap and Water -Foul Odor after Cleansing No No -Primary Dressing Applied -Other Dressing ABD Unna Boot -Primary Dressing Covered/Secured with Dry Gauze & Roll Gauze, Secured with Tape -Other Covering Unna Boot -Optilok 5x5 1/2 RLE -Multi-Layered Wrap Application Multi-Layer Comp - Right ($ ) -Stockings Yes -Other Farrow Wrap -Multi-Layer Compression Right (Qty 1 applied) LLE -Multi-Layered Wrap Application Unna Boot - Unna Boot - Left Left -Unna- Left (Qty applied) 1 1 Treatment Response Procedure Tolerated Well Pain Scale: 0-10 Numeric Is Patient Pain Free? 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 Circumferential ulceration secondary to skin tear measures 50 cm x 15 cm x 0.1 cm at previous visit. Today they measure 0.1 cm x 0.1 cm x 0.1 cm. Despite reduction in ulceration size, Remainder of skin however does remain friable secondary to his previously healed skin tears and chronic phleobolymphedema to which he is understanding of risk of reulceration. There is still some venous scant weeping of serous fluid secondary to significant edema, but this is improving slowly. Adaptic and Suprasorb was applied to the wound bed and Unna boot compression wrap applied to left lower extremity. Farrow wrap compression to right lower extremities. He was instructed to not get this wet and utilize cast bag when showering to remain compliant for his left lower extremity. He did continues to tolerate the Unna boot compression wrap well and did undergo dressing change this past Wednesday. Does have some reduction in edema this week versus his previous visit. I have previously discussed with the patient and his grandmother applying for Farrow wrap and lymphedema pumps to aid in controlling lower extremity edema and his lymphedema. Orders were placed for this on 08/31/2024. He did receive Farrow wrap compression and this was applied today as stated above. Still awaiting lymphedema pump. I discussed again that it has been at least 7 weeks following standard care of his multiple skin tears/ulcerative sites secondary to chronic venous stasis (VLUs) and in addition to his lipodermatosclerosis/phlebolymphedema, positive Stemmer sign of the second digit and stasis dermatitis plus hyperpigmentation/hemosiderin deposition within the left lower extremity he would qualify for a lymphedema pump. We have attempted 7 weeks of compression therapy in form of 3M compression wrap and Unna boot compression. Prior to this he had been attempting Burke wrap compression. 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 He does have +4 pitting edema of bilateral lower extremities. He reports having his VLU of the left lower extremity for roughly 9 weeks without significant improvement. His lymphedema has been present for greater than 6 months but is becoming more of a problem with continued swelling/enlargement of the lower extremities. Debridement has been performed in addition to compression treatment stated above and Cristela to the wound sites however his wounds have either remain unchanged or have increased over the last 3 weeks due to continued significant symptoms of his phlebolymphedema and difficulty maintaining standard compression therapy. Due to patient's current course of therapy without significant improvement it is likely he would require a thigh applied [id number] device to aid in healing of his wounds to optimize the current SOC dressings, improve blood flow to the lower extremity, decreased pain, and again aid in his healing of wounds. I have previously discussed with him it is imperative for him to begin diet and weight control. He is currently not diabetic but I have discussed with him that with metabolic syndrome he is at higher risk of development of diabetes. Most recent A1c was 5.9%. Discussed with weight loss he would be able to prevent onset of early diabetes, improve his blood pressure, and improve his lymphedema and his venous insufficiency. Discussed he will always likely require compression stocking to aid in control of his edema and may require the use of lymphedema pumps. He is understanding of this. Discussed continued evaluation to ensure recidivism of his previous wounds do not occur. He is in agreement with this plan. He did previously undergo venous studies on 08/21/2024. 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 Left common femoral vein incompetent, left great saphenous vein segmentally incompetent. These findings were discussed with him today. He will undergo follow-up with vascular surgery, Dr. Narayan and has been scheduled for LEAS/Venous studies with CTA angiogram which demonstrated no proximal blockages. He did see Dr. Narayan September 19. They are in agreement with current treatment and plans and do feel weight reduction will also aid in improvement in his symptoms. They will follow again in 4 months. He also has upcoming appointment with CRIS Diaz on September 28. Due to multiple areas that are open he was prescribed a course of oral doxycycline 100 mg twice daily x 14 days (stop date 09/28/2024). Will continue to follow and monitor. The following work up and care recommendations were made: Dressing: Farrow wrap right lower extremity, Unna boot left lower extremity. Do not get wet. Utilize cast bag when showering to remain compliant Wash: Do not get wet Tissue growth optimization: None Offload: Farrow wrap/Unna boot with eventual transition into compression stockings/lymphedema pump Vascular: Do not feel vascular status is impacting healing status. Venous stasis remains difficult in treatment. Edema: Farrow wrap/Unna boot with eventual transition into compression stocking/lymphedema pump. Continue to elevate lower extremities when at rest to aid in edema control. Infection: No signs of infection Pain: No pain currently. May take [id number] Tylenol Extra Strength for any discomfort Host factors: Metabolic syndrome, morbid obesity, venous insufficiency/stasis, lymphedema, and hypertension all affect healing status He will return for nurse visit on Wednesday09/25/2024 for change of left lower extremity Unna boot. I answered all the patient's questions. To return to the wound healing center in 1 week or call sooner if the patient has any questions or concerns.
[2024-09-25 10:49] VITALS: BP 148/99; PULSE 99; RESP 16; TEMP 36.9; BMI 66.4
[2024-09-28 09:45] VITALS: BP 161/84; PULSE 106; RESP 18; TEMP 36.1; BMI 66.4
--- NOTE | 2024-09-28 09:46 | PCM.WC.PN ---
History of Present Illness Date of Service: 09/28/24 Chief Complaint: Left lower extremity venous ulcerations History of Wound: Patient is a 19-year-old male who presents to the wound care center today by referral from his SRINIVASA Gerer. Reports that his legs are swollen and more painful. He was placed on antibiotic prior and had been elevating his legs more and using Burke wraps for compression and reports some improvement in this. States that the legs do have some yellow serous fluid drainage and tend to weep. He did report history of multiple ulcerations however these have improved with the previously stated treatment. He continues to attempt Burke wrap compression and will be going to vascular physician for additional recommendations. He is understanding that he has PMHx of HTN, morbid obesity, peripheral venous insufficiency, lymphedema, and metabolic syndrome are contributing to his current edema and wound problems. He denies any trauma to the lower extremities. Denies N/V/F/chills. Denies further complaints. Subjective Subjective This 19-year-old male returns to the wound care center today for continued follow-up of bilateral lymphedema left greater than right compounded by chronic venous insufficiency/stasis. He reports improvement with use of Farrow wrap to right lower extremity and continues to tolerate Unna boot to left lower extremity and remains compliant with keeping this dry. He does note continued improvement in the appearance of his left lower extremity. Grandmother notes still awaiting approval of lymphedema pump. He denies constitutional symptoms. Denies further complaints. Objective Data Objective Data Vital Signs: Vital Signs Temp Pulse Resp BP O2 Del Method 98.4 F 99 16 148/99 H Room Air 09/25/24 10:49 09/25/24 10:49 09/25/24 10:49 09/25/24 10:49 09/14/24 09:51 Oxygen Delivery Method Room Air Weight: 228.611 kg Body Mass Index (BMI) 66.4 Physical Exam Const alert, oriented x3 and no apparent distress General Appearance: cooperative Nutritional Appearance: morbidly obese HEENT normocephalic Eyes General Eye: normal appearance of both eyes Neck General: normal visual inspection Lymph Lymphatic: no lymphadenopathy noted and lymphedema Resp normal respiratory effort Cardio regular rate and regular rhythm Extremity no calf tenderness Extremity Narrative: Lower extremity: Vascular: DP and PT pulses weakly palpable secondary to edema. CFT is brisk to all digits of the foot. Normal temperature gradient. Pedal hair growth is appreciated to the digits. Neurologic: Epicritic sensation intact without focal deficit noted. Musculoskeletal: Muscle strength 5 of 5 age-appropriate. There is decreased range of motion of the ankle joint with the knee extended without pain or crepitus bilateral. Full range of motion is appreciated with the knee flexed. Negative Fay test, negative Ojeda test bilateral lower extremity. Full, smooth, pain-free range of motion of the STJ, MTJ and first MTPJ is appreciated. Dermatology: There is edema to bilateral lower extremities with left lower extremity greater than the right lower extremity. Left lower extremity demonstrates healthy appearing skin with reduced turgor. Positive Stemmer sign bilateral second digit. There is hemosiderin deposition and reddish-purpleish discoloration circumferentially about the left lower extremity. There are areas of previous noted healed superficial skin tears with some areas of serous drainage. Circumferential superficial skin tears of the left lower extremity secondary to his edema from previous week have improved with continued epithelialization noted. No signs of infection. There is improvement in his stasis dermatitis. Skin no rashes or lesions noted General Skin Exam: venous stasis and dermatitis Neuro moves all extremities Debridement Note Debridement Note No debridement was completed: No debridement was completed today Post-Debridement Measurements and Additional Note: Post-Debridement Measurements/Treatment - Nurse 1 - General Ulcer Assessment Start: 09/07/24 09:55 Freq: Status: Active Protocol: .LOWEXT Activity Type Activity Date Activity User E-sign Co-sign Detail Recorded Client Recorded Date Recorded By Document 09/07/24 09:55 KW [id number] 09/07/24 10:06 KW Document 09/11/24 10:48 BM [id number] 09/11/24 10:56 BMF Document 09/14/24 09:51 KW [id number] 09/14/24 10:03 KW Document 09/18/24 10:59 DL [id number] 09/18/24 11:28 DL Document 09/21/24 09:58 DL [id number] 09/21/24 10:05 DL Document 09/25/24 10:49 JF [id number] 09/25/24 10:51 JF 09/07/24 09/11/24 09/14/24 09:55 10:48 09:51 - Today's Visit Information Type of service Follow-up Visit Nurse-only Follow-up Visit (Physician/PRODUCT DEVELOPMENT ECOLOGIST Visit (Physician/PRODUCT DEVELOPMENT ECOLOGIST ) ) Arrival Mode Ambulatory Ambulatory Ambulatory Transfer Assistance None Accompanied by grandmother grandma Patient Identification Verified (Name & Yes Yes Yes ) Patient Requires Transmission-Based Precautions Height and Weight Body Mass Index (BMI) 66.4 66.4 66.4 BMI Classification Obese Obese Obese Vital Signs Temperature (97.8 F-99.1 F) 97.5 F L 98.3 F 99.8 F H Temperature Source Temporal Temporal Temporal Pulse Rate (60-100) 94 105 H 99 Pulse Location Monitor Monitor Monitor Respiratory Rate (12-18) 16 16 18 Respiratory rate source Observation Observation Observation Oxygen Delivery Method Room Air Room Air Room Air Blood Pressure (90/60-120/80) 158/74 H 149/101 H 153/73 H Blood Pressure Mean (mm Hg) 102 117 99 Source Monitor Monitor Monitor Position Semi-Fowlers Sitting Semi-Fowlers Blood Pressure Location Right Forearm Right Forearm Right Forearm History Since Last Visit- (Skip if this is Patient's initial visit) Have you changed medications since your No No No last visit? Any new allergies or adverse reactions No No No Had a fall/change in ADL's that may No No No increase risk of falls Signs or symptoms of abuse and/or No No No neglect since last visit Have you been in the hospital since your No No No last visit? Has dressing in place as prescribed Yes Yes Yes Has compression in place as prescribed Yes Yes Yes Has offloadiing in place as prescribed N/A N/A N/A Experienced any changes in pain level or No No No management Left Footwear Regular Shoe Regular Shoe Regular Shoe Right Footwear Regular Shoe Regular Shoe Regular Shoe Pain Scale: 0-10 Numeric Is Patient Pain Free? Yes Yes Yes 09/18/24 09/21/24 09/25/24 10:59 09:58 10:49 WC - Today's Visit Information Type of service Nurse-only Follow-up Visit Nurse-only Visit (Physician/PRODUCT DEVELOPMENT ECOLOGIST Visit ) Arrival Mode Ambulatory Ambulatory Ambulatory Transfer Assistance None None Accompanied by grandma Patient Identification Verified (Name & Yes Yes Yes ) Patient Requires Transmission-Based No No No Precautions Height and Weight Body Mass Index (BMI) 66.4 66.4 66.4 BMI Classification Obese Obese Obese Vital Signs Temperature (97.8 F-99.1 F) 97.6 F L 98.5 F 98.4 F Temperature Source Temporal Temporal Temporal Pulse Rate (60-100) 116 H 97 99 Pulse Location Monitor Monitor Monitor Respiratory Rate (12-18) 20 H 20 H 16 Respiratory rate source Observation Observation Observation Oxygen Delivery Method Blood Pressure (90/60-120/80) 142/103 H 157/101 H 148/99 H Blood Pressure Mean (mm Hg) 116 119 115 Source Monitor Monitor Monitor Position Sitting Blood Pressure Location Left Forearm History Since Last Visit- (Skip if this is Patient's initial visit) Have you changed medications since your No No last visit? Any new allergies or adverse reactions No No Had a fall/change in ADL's that may No No increase risk of falls Signs or symptoms of abuse and/or No No neglect since last visit Have you been in the hospital since your No No last visit? Has dressing in place as prescribed Yes Yes Has compression in place as prescribed Yes Yes Has offloadiing in place as prescribed N/A N/A Experienced any changes in pain level or No No management Left Footwear Regular Shoe Right Footwear Regular Shoe Pain Scale: 0-10 Numeric Is Patient Pain Free? Yes Yes Yes WC - Nurse 1 - General Ulcer Measurement Start: 09/07/24 09:55 Freq: Status: Active Protocol: Activity Type Activity Date Activity User E-sign Co-sign Detail Recorded Client Recorded Date Recorded By Document 09/07/24 09:55 KW [id number] 09/07/24 10:06 KW Document 09/11/24 10:48 BMF [id number] 09/11/24 10:56 BMF Document 09/14/24 09:51 KW [id number] 09/14/24 10:03 KW Document 09/18/24 10:59 DL [id number] 09/18/24 11:28 DL Document 09/21/24 09:58 DL [id number] 09/21/24 10:05 DL Document 09/25/24 10:49 JF [id number] 09/25/24 10:51 JF 09/07/24 09/11/24 09/14/24 09:55 10:48 09:51 Wound Center Nurse 1 #2- L POST LE -Exudate Amt Small -Exudate Type Serosanguineous -Wound Margin Distinct, Outline Attached -Granulation Amt Large (67-100%) -Granulation Quality Red -Texture (Mellissa-wound Skin Appearance) Assessed -Moisture (Mellissa-wound Skin Appearance) Assessed -Color (Mellissa-wound Skin Appearance) Assessed, Erythema, Hemosiderin Staining -Temperature (Mellissa-wound Skin No Abnormality Appearance) (Pt Warm) -Tenderness on Palpation (Mellissa-wound No Skin Appearance) -Ulcer Cleansing Soap and Water -Foul Odor after Cleansing No -Wound Comment(s) martha boot circ. cluster. #1- L MED LE -Current Size (cm) - Length 0.1 -Current Size (cm) - Width 0.1 -Current Size (cm) - Depth 0.1 -Total Square Cm 0.01 -Photo Taken Yes -Exudate Amt Small Small -Exudate Type Serosanguineous -Wound Margin Distinct, Distinct, Outline Outline Attached Attached -Granulation Amt Large (67-100%) Large (67-100%) -Granulation Quality [place] Red -Necrosis Amt None Present (0 %) -Structure Exposed N/A -Texture (Mellissa-wound Skin Appearance) Excoriation, Assessed Scarring -Moisture (Mellissa-wound Skin Appearance) Dry/Scaly Assessed -Color (Mellissa-wound Skin Appearance) Hemosiderin Assessed, Staining Erythema, Hemosiderin Staining -Temperature (Mellissa-wound Skin No Abnormality No Abnormality Appearance) (Pt Warm) (Pt Warm) -Tenderness on Palpation (Mellissa-wound No Skin Appearance) -Ulcer Cleansing Soap and Water Soap and Water -Foul Odor after Cleansing No No -Anesthetic Used 5% Lidocaine Gel -Wound Comment(s) martha Iizuumelvin circ. cluster #3- LLE CIRCUMFERENTIAL -Current Size (cm) - Length -Current Size (cm) - Width -Current Size (cm) - Depth -Total Square Cm -Photo Taken -Exudate Amt -Exudate Type -Wound Margin -Structure Exposed -Texture (Mellissa-wound Skin Appearance) -Moisture (Mellissa-wound Skin Appearance) -Color (Mellissa-wound Skin Appearance) -Temperature (Mellissa-wound Skin Appearance) -Tenderness on Palpation (Mellissa-wound Skin Appearance) -Ulcer Cleansing -Foul Odor after Cleansing Lower Limb Edema Present Yes Right Calf (cm) 56.7 61.6 63 Right Ankle (cm) 32.5 33.7 33.5 Left Calf (cm) 56.5 60.2 64 Left Ankle (cm) 32 32.3 34 09/18/24 09/21/24 09/25/24 10:59 09:58 10:49 Wound Center Nurse 1 #2- L POST LE -Exudate Amt -Exudate Type -Wound Margin -Granulation Amt -Granulation Quality -Texture (Mellissa-wound Skin Appearance) -Moisture (Mellissa-wound Skin Appearance) -Color (Mellissa-wound Skin Appearance) -Temperature (Mellissa-wound Skin Appearance) -Tenderness on Palpation (Mellissa-wound Skin Appearance) -Ulcer Cleansing -Foul Odor after Cleansing -Wound Comment(s) #1- L MED LE -Current Size (cm) - Length -Current Size (cm) - Width -Current Size (cm) - Depth -Total Square Cm -Photo Taken -Exudate Amt -Exudate Type -Wound Margin -Granulation Amt -Granulation Quality -Necrosis Amt -Structure Exposed -Texture (Mellissa-wound Skin Appearance) -Moisture (Mellissa-wound Skin Appearance) -Color (Mellissa-wound Skin Appearance) -Temperature (Mellissa-wound Skin Appearance) -Tenderness on Palpation (Mellissa-wound Skin Appearance) -Ulcer Cleansing -Foul Odor after Cleansing -Anesthetic Used -Wound Comment(s) #3- LLE CIRCUMFERENTIAL -Current Size (cm) - Length 0.1 -Current Size (cm) - Width 0.1 -Current Size (cm) - Depth 0.1 -Total Square Cm 0.01 -Photo Taken Yes -Exudate Amt Small None Present -Exudate Type Serosanguineous -Wound Margin Indistinct, Non Indistinct, Non -Visible -Visible -Structure Exposed N/A -Texture (Mellissa-wound Skin Appearance) Excoriation, Rash -Moisture (Mellissa-wound Skin Appearance) Dry/Scaly -Color (Mellissa-wound Skin Appearance) No Abnormality -Temperature (Mellissa-wound Skin No Abnormality Appearance) (Pt Warm) -Tenderness on Palpation (Mellissa-wound No Skin Appearance) -Ulcer Cleansing Soap and Water Soap and Water -Foul Odor after Cleansing No No Lower Limb Edema Present Yes Right Calf (cm) 60 59 Right Ankle (cm) 32.5 32.5 Left Calf (cm) 62 60 64.0 Left Ankle (cm) 32.5 33.2 32.7 WC - Nurse 2 - General Ulcer CM Notes Start: 09/07/24 09:55 Freq: Status: Active Protocol: Activity Type Activity Date Activity User E-sign Co-sign Detail Recorded Client Recorded Date Recorded By Document 09/07/24 10:21 [facility] [id number] 09/07/24 10:25 [facility] Document 09/14/24 10:08 [facility] [id number] 09/14/24 10:15 [facility] Document 09/21/24 10:13 [facility] [id number] 09/21/24 10:19 [facility] 09/07/24 09/14/24 09/21/24 10:21 10:08 10:13 Wound Center Nurse 2 #2- L POST LE -Time 10:22 10:08 -Post Debridement (cm) - Length 9 -Post Debridement (cm) - Width 7 -Post Debridement (cm) - Depth 0.1 -Total Square (Post) (cm) 63 -Area of Debridement (cm) - Length 9 -Area of Debridement (cm) - Width 7 -Total Square (Area) (cm) 63 -Wound/Ulcer Outcome Not Healed #1- L MED LE -Time 10:21 -Post Debridement (cm) - Length 2 -Post Debridement (cm) - Width 1 -Post Debridement (cm) - Depth 0.1 -Total Square (Post) (cm) 2 -Area of Debridement (cm) - Length 2 -Area of Debridement (cm) - Width 1 -Total Square (Area) (cm) 2 -Tunneling No -Undermining/Tunneling No -Circular Undermining No -Wound/Ulcer Outcome Not Healed -Bleeding Controlled with NA #3- LLE CIRCUMFERENTIAL -Time 10:11 10:13 -Procedure Performed No -Post Debridement (cm) - Length 15 0.1 -Post Debridement (cm) - Width 50 0.1 -Post Debridement (cm) - Depth 0.1 0.1 -Total Square (Post) (cm) 750 0.01 -Area of Debridement (cm) - Length 15 0.1 -Area of Debridement (cm) - Width 50 0.1 -Total Square (Area) (cm) 750 0.01 -Tunneling No No -Undermining/Tunneling No No -Circular Undermining No No -Wound/Ulcer Outcome Not Healed Not Healed -Bleeding Controlled with NA NA Pain Scale: 0-10 Numeric Is Patient Pain Free? Yes Yes Yes WC - Nurse 3 - General Ulcer D/C NN Start: 09/07/24 09:55 Freq: Status: Active Protocol: Activity Type Activity Date Activity User E-sign Co-sign Detail Recorded Client Recorded Date Recorded By Document 09/07/24 10:43 DL [id number] 09/07/24 10:47 DL Document 09/11/24 10:48 BMF [id number] 09/11/24 10:56 BMF Edit Result 09/11/24 10:48 BMF (1) 0000 09/14/24 15:48 BMF Document 09/14/24 10:24 DL [id number] 09/14/24 10:38 DL Document 09/18/24 10:59 DL [id number] 09/18/24 11:28 DL Document 09/21/24 09:58 DL [id number] 09/21/24 10:05 DL Document 09/21/24 10:23 DL [id number] 09/21/24 10:34 DL Document 09/25/24 10:49 JF [id number] 09/25/24 10:51 JF (1) RLE - Multi-Layered Wrap Application => Multi-Layer Comp - => Right ($) - Multi-Layer Compression Right (Qty => 1 applied) LLE - Multi-Layered Wrap Application => Unna Boot - Left - Unna- Left (Qty applied) => 1 09/07/24 09/11/24 09/14/24 10:43 10:48 10:24 Wound Care Center Nurse 3 #2- L POST LE -Ulcer Cleansing Soap and Water -Other Dressing Unna Boot #1- L MED LE -Ulcer Cleansing Soap and Water -Other Dressing Unna Boot #3- LLE CIRCUMFERENTIAL -Ulcer Cleansing Soap and Water -Foul Odor after Cleansing No -Primary Dressing Applied Optilok 5x5 1/2 -Other Dressing UNNA BOOT -Primary Dressing Covered/Secured with -Other Covering -Optilok 5x5 1/2 1 RLE -Multi-Layered Wrap Application Multi-Layer Multi-Layer Multi-Layer Comp - Right ($ Comp - Right ($ Comp - Right ($ ) ) ) -Stockings -Other -Multi-Layer Compression Right (Qty 1 1 1 applied) LLE -Multi-Layered Wrap Application Unna Boot - Unna Boot - Unna Boot - Left Left Left -Unna- Left (Qty applied) 1 1 1 Treatment Response Procedure Procedure Tolerated Well Tolerated Well Pain Scale: 0-10 Numeric Is Patient Pain Free? Yes Yes Yes WC - Visit Discharge Discharge Condition Stable Stable Ambulatory Status Ambulatory Ambulatory Transportation Private Auto Private Auto Medication Reconcilliation completed & provided to patient/care provider Clinical Summary of Care Provided 09/18/24 09/21/24 09/21/24 10:59 09:58 10:23 Wound Care Center Nurse 3 #2- L POST LE -Ulcer Cleansing -Other Dressing #1- L MED LE -Ulcer Cleansing -Other Dressing #3- LLE CIRCUMFERENTIAL -Ulcer Cleansing Soap and Water -Foul Odor after Cleansing No No -Primary Dressing Applied -Other Dressing ABD Unna Boot -Primary Dressing Covered/Secured with Dry Gauze & Roll Gauze, Secured with Tape -Other Covering Unna Boot -Optilok 5x5 1/2 RLE -Multi-Layered Wrap Application Multi-Layer Comp - Right ($ ) -Stockings Yes -Other Farrow Wrap -Multi-Layer Compression Right (Qty 1 applied) LLE -Multi-Layered Wrap Application Unna Boot - Unna Boot - Left Left -Unna- Left (Qty applied) 1 1 Treatment Response Procedure Tolerated Well Pain Scale: 0-10 Numeric Is Patient Pain Free? Yes Yes Yes WC - Visit Discharge Discharge Condition Stable Stable Ambulatory Status Ambulatory Ambulatory Transportation Private Auto Private Auto Medication Reconcilliation completed & provided to patient/care provider Clinical Summary of Care Provided 09/25/24 10:49 Wound Care Center Nurse 3 #2- L POST LE -Ulcer Cleansing -Other Dressing #1- L MED LE -Ulcer Cleansing -Other Dressing #3- LLE CIRCUMFERENTIAL -Ulcer Cleansing Soap and Water -Foul Odor after Cleansing -Primary Dressing Applied -Other Dressing -Primary Dressing Covered/Secured with -Other Covering -Optilok 5x5 1/2 RLE -Multi-Layered Wrap Application -Stockings -Other -Multi-Layer Compression Right (Qty applied) LLE -Multi-Layered Wrap Application Unna Boot - Left -Unna- Left (Qty applied) 1 Treatment Response Pain Scale: 0-10 Numeric Is Patient Pain Free? Yes WC - Visit Discharge Discharge Condition Stable Ambulatory Status Ambulatory Transportation Private Auto Medication Reconcilliation completed & No provided to patient/care provider Clinical Summary of Care Provided No Assessment/Plan Assessment/Plan (1) Non-pressure chronic ulcer of left calf limited to breakdown of skin: CODE(S): L97.221 - Non-pressure chronic ulcer of left calf limited to breakdown of skin (2) Venous (peripheral) insufficiency: CODE(S): I87.2 - Venous insufficiency (chronic) (peripheral) (3) Lymphedema of left lower extremity: CODE(S): I89.0 - Lymphedema, not elsewhere classified (4) Morbid obesity: CODE(S): E66.01 - Morbid (severe) obesity due to excess calories (5) Metabolic syndrome: CODE(S): E88.810 - Metabolic syndrome PLAN: Plan Patient seen and evaluated Patient currently demonstrates new circumferential open areas of superficial ulceration. Circumferential ulceration secondary to skin tear measures 50 cm x 15 cm x 0.1 cm during visit 09/21/24. Today they measure 0.1 cm x 0.1 cm x 0.1 cm. Despite reduction in ulceration size, Remainder of skin however does remain friable secondary to his previously healed skin tears and chronic phleobolymphedema to which he is understanding of risk of reulceration. There is still some venous scant weeping of serous fluid secondary to significant edema, but this is improving slowly. Adaptic and Suprasorb was applied to the wound bed and Unna boot compression wrap applied to left lower extremity. Farrow wrap compression to right lower extremities. He was instructed to not get this wet and utilize cast bag when showering to remain compliant for his left lower extremity. He did continues to tolerate the Unna boot compression wrap well and did undergo dressing change this past Wednesday. Does have some reduction in edema this week versus his previous visit. I have previously discussed with the patient and his grandmother applying for Farrow wrap and lymphedema pumps to aid in controlling lower extremity edema and his lymphedema. Orders were placed for this on 08/31/2024. He did receive Farrow wrap compression and this was applied today as stated above. Still awaiting lymphedema pump. I discussed again that it has been at least 8 weeks following standard care of his multiple skin tears/ulcerative sites secondary to chronic venous stasis (VLUs) and in addition to his lipodermatosclerosis/phlebolymphedema, positive Stemmer sign of the second digit and stasis dermatitis plus hyperpigmentation/hemosiderin deposition within the left lower extremity he would qualify for a lymphedema pump. We have attempted 8 weeks of compression therapy in form of 3M compression wrap and Unna boot compression. Prior to this he had been attempting Burke wrap compression. 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 He does have +4 pitting edema of bilateral lower extremities. He reports having his VLU of the left lower extremity for roughly 10 weeks without significant improvement. His lymphedema has been present for greater than 6 months but is becoming more of a problem with continued swelling/enlargement of the lower extremities. Debridement has been performed in addition to compression treatment stated above and Cristela to the wound sites however his wounds have either remain unchanged or have increased over the last 4 weeks due to continued significant symptoms of his phlebolymphedema and difficulty maintaining standard compression therapy. Due to patient's current course of therapy without significant improvement it is likely he would require a thigh applied [id number] device to aid in healing of his wounds to optimize the current SOC dressings, improve blood flow to the lower extremity, decreased pain, and again aid in his healing of wounds. I have previously discussed with him it is imperative for him to begin diet and weight control. He is currently not diabetic but I have discussed with him that with metabolic syndrome he is at higher risk of development of diabetes. Most recent A1c was 5.9%. Discussed with weight loss he would be able to prevent onset of early diabetes, improve his blood pressure, and improve his lymphedema and his venous insufficiency. Discussed he will always likely require compression stocking to aid in control of his edema and may require the use of lymphedema pumps. He is understanding of this. Discussed continued evaluation to ensure recidivism of his previous wounds do not occur. He is in agreement with this plan. He did previously undergo venous studies on 08/21/2024. 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 Left common femoral vein incompetent, left great saphenous vein segmentally incompetent. These findings were discussed with him today. He will undergo follow-up with vascular surgery, Dr. Narayan and has been scheduled for LEAS/Venous studies with CTA angiogram which demonstrated no proximal blockages. He did see Dr. Narayan September 19. They are in agreement with current treatment and plans and do feel weight reduction will also aid in improvement in his symptoms. They will follow again in 4 months. He also has upcoming appointment with CRIS Diaz on September 28. Due to multiple areas that are open he was prescribed a course of oral doxycycline 100 mg twice daily x 14 days (stop date 09/28/2024). Will continue to follow and monitor. Has upcoming range operator appointment 10/03/2024 The following work up and care recommendations were made: Dressing: Farrow wrap right lower extremity, Unna boot left lower extremity. Do not get wet. Utilize cast bag when showering to remain compliant Wash: Do not get wet Tissue growth optimization: None Offload: Farrow wrap/Unna boot with eventual transition into compression stockings/lymphedema pump Vascular: Do not feel vascular status is impacting healing status. Venous stasis remains difficult in treatment. Edema: Farrow wrap/Unna boot with eventual transition into compression stocking/lymphedema pump. Continue to elevate lower extremities when at rest to aid in edema control. Infection: No signs of infection Pain: No pain currently. May take [id number] Tylenol Extra Strength for any discomfort Host factors: Metabolic syndrome, morbid obesity, venous insufficiency/stasis, lymphedema, and hypertension all affect healing status He will return for nurse visit on Wednesday10/02/2024 for change of left lower extremity Unna boot. If skin continues to improve next week we will consider transition to Farrow wrap for his left lower extremity with close monitoring. I answered all the patient's questions. To return to the wound healing center in 1 week or call sooner if the patient has any questions or concerns.
[2024-10-02 11:10] VITALS: BP 161/78; PULSE 100; RESP 18; TEMP 37.4; BMI 66.4
== END 2024-10-04 23:59 | disposition home or self-care (01) ==
LOC: WC 10:45
PROVIDERS: PCP Physician Assistant; Referring Provider Physician Assistant; Visit Provider Student in an Organized Health Care Education/Training Program
DX: I89.0 Lymphedema, not elsewhere classified (principal); L97.221 Non-pressure chronic ulcer of left calf limited to breakdown of skin; E66.01 Morbid (severe) obesity due to excess calories; Z68.44 Body mass index [BMI] 60.0-69.9, adult; I10 Essential (primary) hypertension; I87.2 Venous insufficiency (chronic) (peripheral); E88.810 Metabolic syndrome; S81.812A Laceration without foreign body, left lower leg, initial encounter; X58.XXXA Exposure to other specified factors, initial encounter
CPT/HCPCS: 29580; 29581; 99213; G0463

== ENCOUNTER 2024-10-03 10:29 | Outpatient (RCR) | payer MEDICAID, SELFPAY | END 2024-10-04 23:59 | LOC: NS 10:29 | PROVIDERS: PCP Physician Assistant; Referring Provider Student in an Organized Health Care Education/Training Program; Visit Provider Student in an Organized Health Care Education/Training Program | DX: Z71.3 Dietary counseling and surveillance (principal); E66.01 Morbid (severe) obesity due to excess calories; I87.2 Venous insufficiency (chronic) (peripheral); I89.0 Lymphedema, not elsewhere classified; I10 Essential (primary) hypertension | CPT/HCPCS: 97802 ==

== ENCOUNTER 2024-10-26 10:00 | Outpatient (RCR) | payer MEDICAID, SELFPAY ==
[2024-10-05 00:13] VITALS: BP 161/78; PULSE 100; RESP 18; TEMP 37.4; BMI 66.4
[2024-10-05 10:01] VITALS: BP 151/97; PULSE 100; RESP 18; TEMP 37.4; BMI 66.4
--- NOTE | 2024-10-05 13:15 | PN.PCM_ITS ---
History of Present Illness Date of Service: 10/05/24 Chief Complaint: Left lower extremity venous ulcerations History of Wound: Patient is a 19-year-old male who presents to the wound care center today by referral from his SRINIVASA Greer. Reports that his legs are swollen and more painful. He was placed on antibiotic prior and had been elevating his legs more and using Burke wraps for compression and reports some improvement in this. States that the legs do have some yellow serous fluid drainage and tend to weep. He did report history of multiple ulcerations however these have improved with the previously stated treatment. He continues to attempt Burke wrap compression and will be going to vascular physician for additional recommendations. He is understanding that he has PMHx of HTN, morbid obesity, peripheral venous insufficiency, lymphedema, and metabolic syndrome are contributing to his current edema and wound problems. He denies any trauma to the lower extremities. Denies N/V/F/chills. Denies further complaints. Subjective Subjective This 19-year-old male returns to the wound care center today for continued follow-up of bilateral lymphedema left greater than right compounded by chronic venous insufficiency/stasis. He reports improvement with use of Farrow wrap to right lower extremity and continues to tolerate Unna boot to left lower extremity and remains compliant with keeping this dry. He does note continued improvement in the appearance of his left lower extremity with rubor resolved. Grandmother states he has been approved for lymphedema pump. He denies constitutional symptoms. Denies further complaints. Objective Data Objective Data Vital Signs: Vital Signs Temp Pulse Resp BP O2 Del Method 99.3 F H 100 18 151/97 H Room Air 10/05/24 10:10/05/24 10:10/05/24 10:10/05/24 10:10/05/24 10:01 Oxygen Delivery Method Room Air Weight: 228.611 kg Body Mass Index (BMI) 66.4 Physical Exam Const alert, oriented x3 and no apparent distress General Appearance: cooperative HEENT normocephalic Eyes General Eye: normal appearance of both eyes Neck General: normal visual inspection Lymph Lymphatic: no lymphadenopathy noted and no lymphedema noted Resp normal respiratory effort Cardio regular rate and regular rhythm Extremity no calf tenderness Extremity Narrative: Lower extremity: Vascular: DP and PT pulses weakly palpable secondary to edema. CFT is brisk to all digits of the foot. Normal temperature gradient. Pedal hair growth is appreciated to the digits. Neurologic: Epicritic sensation intact without focal deficit noted. Musculoskeletal: Muscle strength 5 of 5 age-appropriate. There is decreased range of motion of the ankle joint with the knee extended without pain or crepitus bilateral. Full range of motion is appreciated with the knee flexed. Negative Fay test, negative Ojeda test bilateral lower extremity. Full, smooth, pain-free range of motion of the STJ, MTJ and first MTPJ is appreciated. Dermatology: There is edema to bilateral lower extremities with left lower extremity greater than the right lower extremity. Left lower extremity demon strates healthy appearing skin with reduced turgor. Positive Stemmer sign bilateral second digit. There is hemosiderin deposition and reddish-purpleish discoloration circumferentially about the left lower extremity. There are areas of previous noted healed superficial skin tears with some areas of serous drainage. Circumferential superficial skin tears of the left lower extremity secondary to his edema continue to improve with continued epithelialization noted. No signs of infection. There is improvement in his stasis dermatitis. Skin no rashes or lesions noted General Skin Exam: venous stasis and dermatitis Neuro moves all extremities Debridement Note Debridement Note No debridement was completed: No debridement was completed today Post-Debridement Measurements and Additional Note: Post-Debridement Measurements/Treatment - Nurse 1 - General Ulcer Assessment Start: 10/05/24 10:00 Freq: Status: Active Protocol: .LOWEXT Activity Type Activity Date Activity User E-sign Co-sign Detail Recorded Client Recorded Date Recorded By Document 10/05/24 10:01 [id number] 10/05/24 10:13 10/05/24 10:01 - Today's Visit Information Type of service Follow-up Visit (Physician/SAFETY AND HEALTH MANAGER ) Arrival Mode Ambulatory Accompanied by grandmother Patient Identification Verified (Name & Yes ) Height and Weight Body Mass Index (BMI) 66.4 BMI Classification Obese Vital Signs Temperature (97.8 F-99.1 F) 99.3 F H Temperature Source Temporal Pulse Rate (60-100) 100 Pulse Location Monitor Respiratory Rate (12-18) 18 Respiratory rate source Observation Oxygen Delivery Method Room Air Blood Pressure (90/60-120/80) 151/97 H Blood Pressure Mean (mm Hg) 115 History Since Last Visit- (Skip if this is Patient's initial visit) Have you changed medications since your No last visit? Any new allergies or adverse reactions No Had a fall/change in ADL's that may No increase risk of falls Signs or symptoms of abuse and/or No neglect since last visit Have you been in the hospital since your No last visit? Has dressing in place as prescribed Yes Has compression in place as prescribed Yes Has offloadiing in place as prescribed N/A Experienced any changes in pain level or No management Left Footwear Regular Shoe Right Footwear Regular Shoe Pain Scale: 0-10 Numeric Is Patient Pain Free? Yes - Nurse 1 - General Ulcer Measurement Start: 10/05/24 10:00 Freq: Status: Active Protocol: Activity Type Activity Date Activity User E-sign Co-sign Detail Recorded Client Recorded Date Recorded By Document 10/05/24 10:01 [id number] 10/05/24 10:13 10/05/24 10:01 Wound Center Nurse 1 Left Calf (cm) 58.5 Left Ankle (cm) 37 WC - Nurse 2 - General Ulcer CM Notes Start: 10/05/24 10:00 Freq: Status: Active Protocol: Activity Type Activity Date Activity User E-sign Co-sign Detail Recorded Client Recorded Date Recorded By Document 10/05/24 10:26 [facility] [id number] 10/05/24 10:30 [facility] 10/05/24 10:26 Wound Center Nurse 2 #3- LLE CIRCUMFERENTIAL -Time 10:26 -Post Debridement (cm) - Length 0.1 -Post Debridement (cm) - Width 0.1 -Post Debridement (cm) - Depth 0.1 -Total Square (Post) (cm) 0.01 -Area of Debridement (cm) - Length 0.1 -Area of Debridement (cm) - Width 0.1 -Total Square (Area) (cm) 0.01 -Tunneling No -Undermining/Tunneling No -Circular Undermining No -Wound/Ulcer Outcome Not Healed -Bleeding Controlled with NA Pain Scale: 0-10 Numeric Is Patient Pain Free? Yes - Nurse 3 - General Ulcer D/C NN Start: 10/05/24 10:00 Freq: Status: Active Protocol: Activity Type Activity Date Activity User E-sign Co-sign Detail Recorded Client Recorded Date Recorded By Document 10/05/24 10:52 KW [id number] 10/05/24 10:52 10/05/24 10:52 Wound Care Center Nurse 3 LLE -Lotion applied to leg before Yes compression wrap -Other applied pt pharaoh wrap Pain Scale: 0-10 Numeric Is Patient Pain Free? Yes WC - Visit Discharge Discharge Condition Stable Ambulatory Status Ambulatory Transportation Private Auto Medication Reconcilliation completed & No provided to patient/care provider Clinical Summary of Care Provided Yes Assessment/Plan Assessment/Plan (1) Non-pressure chronic ulcer of left calf limited to breakdown of skin: CODE(S): L97.221 - Non-pressure chronic ulcer of left calf limited to breakdown of skin (2) Venous (peripheral) insufficiency: CODE(S): I87.2 - Venous insufficiency (chronic) (peripheral) (3) Lymphedema of left lower extremity: CODE(S): I89.0 - Lymphedema, not elsewhere classified (4) Morbid obesity: CODE(S): E66.01 - Morbid (severe) obesity due to excess calories (5) Metabolic syndrome: CODE(S): E88.810 - Metabolic syndrome PLAN: Plan Patient seen and evaluated Patient currently demonstrates new circumferential open areas of superficial ulceration. Circumferential ulceration secondary to skin tear measures 50 cm x 15 cm x 0.1 cm during visit 09/21/24. Today they measure 0.1 cm x 0.1 cm x 0.1 cm. Despite reduction in ulceration size, Remainder of skin however does remain friable secondary to his previously healed skin tears and chronic phleobolymphedema to which he is understanding of risk of reulceration. There is still some venous scant weeping of serous fluid secondary to significant edema, but this is improving slowly. Adaptic and Suprasorb was applied to the wound bed and Unna boot compression wrap applied to left lower extremity. Farrow wrap compression to right lower extremities. He was instructed to not get this wet and utilize cast bag when showering to remain compliant for his left lower extremity. He did continues to tolerate the Unna boot compression wrap well and did undergo dressing change this past Wednesday. Does have some reduction in edema this week versus his previous visit. I have previously discussed with the patient and his grandmother applying for Farrow wrap and lymphedema pumps to aid in controlling lower extremity edema and his lymphedema. Orders were placed for this on 08/31/2024. He did receive Farrow wrap compression and this was applied today as stated above. Has been approved for lymphedema pump. I discussed again that it has been at least 9 weeks following standard care of his multiple skin tears/ulcerative sites secondary to chronic venous stasis (VLUs) and in addition to his lipodermatosclerosis/phlebolymphedema, positive Stemmer sign of the second digit and stasis dermatitis plus hyperpigmentation/hemosiderin deposition within the left lower extremity he would qualify for a lymphedema pump. We have attempted 9 weeks of compression therapy in form of 3M compression wrap and Unna boot compression. Prior to this he had been attempting Burke wrap compression. 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 He does have +4 pitting edema of bilateral lower extremities. He reports having his VLU of the left lower extremity for roughly 10 weeks without significant improvement. His lymphedema has been present for greater than 6 months but is becoming more of a problem with continued swelling/enlargement of the lower extremities. Debridement has been performed in addition to compression treatment stated above and Cristela to the wound sites however his wounds have either remain unchanged or have increased over the last 4 weeks due to continued significant symptoms of his phlebolymphedema and difficulty maintaining standard compression therapy. Due to patient's current course of therapy without significant improvement it is likely he would require a thigh applied [id number] device to aid in healing of his wounds to optimize the current SOC dressings, improve blood flow to the lower extremity, decreased pain, and again aid in his healing of wounds. He was approved for the lymphedema pump. Discussed we will transition to Farrow wrap to his left lower extremity to continue to control edema as we await the lymphedema pumps. I have previously discussed with him it is imperative for him to begin diet and weight control. He is currently not diabetic but I have discussed with him that with metabolic syndrome he is at higher risk of development of diabetes. Most recent A1c was 5.9%. Discussed with weight loss he would be able to prevent onset of early diabetes, improve his blood pressure, and improve his lymphedema and his venous insufficiency. Discussed he will always likely require compression stocking to aid in control of his edema and may require the use of lymphedema pumps. He is understanding of this. Discussed continued evaluation to ensure recidivism of his previous wounds do not occur. He is in agreement with this plan. He did previously undergo venous studies on 08/21/2024. 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 Left common femoral vein incompetent, left great saphenous vein segmentally incompetent. These findings were discussed with him 09/28/2024. He will undergo follow-up with vascular surgery, Dr. Narayan and has been scheduled for LEAS/Venous studies with CTA angiogram which demonstrated no proximal blockages. He did see Dr. Narayan September 19. They are in agreement with current treatment and plans and do feel weight reduction will also aid in impro vement in his symptoms. They will follow again in 4 months. He also has upcoming appointment with CRIS Diaz on September 28. Due to multiple areas that are open he was prescribed a course of oral doxycycline 100 mg twice daily x 14 days (stop date 09/28/2024). Will continue to follow and monitor. He did see director operations broadcast for appointment 10/03/2024. He states this did go well and he will follow again at the end of this month. The following work up and care recommendations were made: Dressing: Farrow wrap right lower extremity, Farrow wrap left lower extremity. Wash: Soap and water Tissue growth optimization: None Offload: Farrow wrap with eventual transition into compression stockings/lymphedema pump Vascular: Do not feel vascular status is impacting healing status. Venous stasis remains difficult in treatment. Edema: Farrow wrap with eventual transition into compression stocking/lymphedema pump. Continue to elevate lower extremities when at rest to aid in edema control. Infection: No signs of infection Pain: No pain currently. May take [id number] Tylenol Extra Strength for any discomfort Host factors: Metabolic syndrome, morbid obesity, venous insufficiency/stasis, lymphedema, and hypertension all affect healing status His skin did improve and thus he was transition to Farrow wrap for his left lower extremity with close monitoring. I answered all the patient's questions. To return to the wound healing center in 3 weeks or call sooner if the patient has any questions or concerns.
--- NOTE | 2024-10-06 10:31 | WC ---
PHOTO 10/05/24 DRAGAN
[2024-10-18 09:31] VITALS: BP 170/96; PULSE 113; RESP 18; TEMP 36.4; BMI 66.4
--- NOTE | 2024-10-18 11:31 | HP.PCM_ITS ---
History of Present Illness Date of Service: 10/18/24 Chief Complaint: Left lower extremity venous ulcerations History of Wound: Patient is a 19-year-old male who presents to the wound care center today by referral from his SRINIVASA Greer. Reports that his legs are swollen and more painful. He was placed on antibiotic prior and had been elevating his legs more and using Burke wraps for compression and reports some improvement in this. States that the legs do have some yellow serous fluid drainage and tend to weep. He did report history of multiple ulcerations however these have improved with the previously stated treatment. He continues to attempt Burke wrap compression and will be going to vascular physician for additional recommendations. He is understanding that he has PMHx of HTN, morbid obesity, peripheral venous insufficiency, lymphedema, and metabolic syndrome are contributing to his current edema and wound problems. He denies any trauma to the lower extremities. Denies N/V/F/chills. Denies further complaints. 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 [facility] Medical History Emotional disorder Home Medications ?Medication ?Instructions ?Recorded ?Last Taken ?Type hydrocolloid dressing 6 X 6 #50 ea 08/04/24 Unknown Rx (Aquacel Extra) non-adherent bandage 5 X 9 #60 ea 08/04/24 Unknown R x metoprolol succinate 50 mg 50 mg PO QDAY #30 tabs 08/06 12/29 Unknown Rx tablet,extended release 24 hr amlodipine 2.5 mg tablet 2.5 mg PO QDAY #30 tabs 09/06 09/29 Unknown Rx hydrochlorothiazide 25 mg tablet 25 mg PO QDAY #30 tab s 09/28/24 Unknown Rx semaglutide (weight loss) 0.25 0.25 mg (0.5 mL) subcut QWEEK #2 mL 10/04/24 Unknown Rx mg/0.5 mL subcutaneous pen injector (Wegovy) Allergy/AdvReac Type Severity Reaction Status Date / Time Dressing: Non-Medicated AdvReac Mild blisters Verified 09/28/24 13:24 (wrap) Family History Other Anxiety Arthritis CVA (cerebral vascular accident) Diabetes Epilepsy seizure, generalized, convulsive High cholesterol Hypertension Liver disease Seizures Thyroid disorder Surgical History History of tonsillectomy and adenoidectomy Social History adopted: No household members: family housing: house current occupational status: unemployed current occupational exposures/hazards: No pets and animals: Yes pets and animals: cat(s) and dog(s) leisure activities: exercise history of recent travel: No Smoking Status: Never smoker alcohol intake: current alcohol intake frequency: holidays/special occasions only substance use type: does not use diet: other well-balanced diet: rarely or never caffeine: Yes Type: carbonated beverages eating out: other details: every other week during the past year weight has: remained stable what type of physical activity do you participate in: other details: elliptical frequency: 3-4 times per week duration: 15-30 minutes/day radha/confucianist: None seatbelt use: always do you feel safe at home: Yes ROS Integumentary Integumentary: Reports wounds and other Details: Left lower leg well three quarters of his leg with cellulitis and swelling Vital Signs Vital Signs Vital Signs: 10/18/24 09:31 Temperature 97.5 F L Temperature Source Temporal Pulse Rate 113 H Respiratory Rate 18 Blood Pressure 170/96 H Blood Pressure Mean 120 Blood Pressure Source Monitor Weight Weight: 504 lb Body Mass Index (BMI) 66.4 Physical Exam Const oriented x3 General Appearance: cooperative Exam Limitations: no limitations HEENT normocephalic Eyes General Eye: normal appearance of both eyes Neck full ROM Resp normal respiratory effort Effort and Inspection: able to speak in complete sentences Auscultation: clear to auscultation bilaterally Cardio regular rate and regular rhythm Palpation: normal PMI Rate: regular rate Rhythm: regular rhythm GI Palpation: soft and no hepatosplenomegaly Extremity General Extremity: normal exam except as noted, edema bilateral and other findings Other Details: Vascular openings and cellulitis erythematous Skin No no wounds Rashes: rashes noted Wounds: wounds noted Wound Narrative: Open wound like cellulitis of the lower extremity from just below knee to ankle three quarters of the leg not quite circumferential pruritic in nature scabby with yellow drainage and coming out of pores. Distinct odor and shiny skin Neuro oriented x3 Psych Appearance: grossly normal Speech: normal speech Thought Content: normal thought content Judgement: judgement good Debridement Note Debridement Note Wound debrided: Left leg venous ulcers Type of Debridement: Excisional debridement Anesthesia Used: 5% Lidocaine Gel Depth: Down to and including healthy tissue Percentage of wound debrided: 100 Instrument Used: 7mm curette Tissue Removed: Devitalized tissue and fibrin Severity: Limited To Skin Breakdown Amount of bleeding with debridement: Mild Bleeding Controlled with: Compression and gauze Patient tolerated procedure: Patient tolerated procedure well Post-Debridement Measurements and Additional Note: Post-Debridement Measurements/Treatment - Nurse 1 - General Ulcer Assessment Start: 10/05/24 10:00 Freq: Status: Active Protocol: ANNAPoptentKEYLA Activity Type Activity Date Activity User E-sign Co-sign Detail Recorded Client Recorded Date Recorded By Document 10/05/24 10:01 KW [id number] 10/05/24 10:13 KW Document 10/18/24 09:31 DL [id number] 10/18/24 09:39 DL 10/05/24 10/18/24 10:01 09:31 - Today's Visit Information Type of service Follow-up Visit Follow-up Visit (Physician/DIRECTOR MEDICAL ECONOMICS (Physician/DIRECTOR MEDICAL ECONOMICS ) ) Arrival Mode Ambulatory Ambulatory Transfer Assistance None Accompanied by grandmother Patient Identification Verified (Name & Yes Yes ) Patient Requires Transmission-Based No Precautions Height and Weight Body Mass Index (BMI) 66.4 66.4 BMI Classification Obese Obese Vital Signs Temperature (97.8 F-99.1 F) 99.3 F H 97.5 F L Temperature Source Temporal Temporal Pulse Rate (60-100) 100 113 H Pulse Location Monitor Monitor Respiratory Rate (12-18) 18 18 Respiratory rate source Observation Observation Oxygen Delivery Method Room Air Blood Pressure (90/60-120/80) 151/97 H 170/96 H Blood Pressure Mean 115 120 Source Monitor History Since Last Visit- (Skip if this is Patient's initial visit) Have you changed medications since your No No last visit? Any new allergies or adverse reactions No No Had a fall/change in ADL's that may No No increase risk of falls Signs or symptoms of abuse and/or No No neglect since last visit Have you been in the hospital since your No No last visit? Has dressing in place as prescribed Yes Yes Has compression in place as prescribed Yes Yes Has offloadiing in place as prescribed N/A N/A Experienced any changes in pain level or No No management Left Footwear Regular Shoe Right Footwear Regular Shoe Pain Scale: 0-10 Numeric Is Patient Pain Free? Yes Yes - Nurse 1 - General Ulcer Measurement Start: 10/05/24 10:00 Freq: Status: Active Protocol: Activity Type Activity Date Activity User E-sign Co-sign Detail Recorded Client Recorded Date Recorded By Document 10/05/24 10:01 KW [id number] 10/05/24 10:13 KW Document 10/18/24 09:31 DL [id number] 10/18/24 09:39 DL 10/05/24 10/18/24 10:01 09:31 Wound Center Nurse 1 #3- LLE CIRCUMFERENTIAL -Current Size (cm) - Length 16 -Current Size (cm) - Width 30 -Current Size (cm) - Depth 0.1 -Total Square Cm 480 -Photo Taken Yes -Classification - Thickness Partial Thickness -Exudate Amt Medium -Exudate Type Serosanguineous -Wound Margin Distinct, Outline Attached -Granulation Amt Large (67-100%) -Granulation Quality Baxley -Necrosis Amt None Present (0 %) -Structure Exposed N/A -Texture (Mellissa-wound Skin Appearance) Localized Edema ,Rash -Moisture (Mellissa-wound Skin Appearance) Weeping -Color (Mellissa-wound Skin Appearance) No Abnormality -Temperature (Mellissa-wound Skin No Abnormality Appearance) (Pt Warm) -Tenderness on Palpation (Mellissa-wound No Skin Appearance) -Ulcer Cleansing Soap and Water -Foul Odor after Cleansing No Left Calf (cm) 58.5 59.5 Left Ankle (cm) 37 34.8 - Nurse 2 - General Ulcer CM Notes Start: 10/05/24 10:00 Freq: Status: Active Protocol: Activity Type Activity Date Activity User E-sign Co-sign Detail Recorded Client Recorded Date Recorded By Document 10/05/24 10:26 [facility] [id number] 10/05/24 10:30 [facility] Document 10/18/24 09:56 [facility] [id number] 10/18/24 10:07 [facility] 10/05/24 10/18/24 10:26 09:56 Wound Center Nurse 2 #3- LLE CIRCUMFERENTIAL -Time 10: 09:57 -Correct Patient Yes -Correct Side, Site, Position Yes -Correct Procedure Yes -Procedure Performed Yes -Type of Procedure Debridement -Clinical Debridement Subcutaneous -Tissue Removed Subcutaneous -Post Debridement (cm) - Length 0.1 24 -Post Debridement (cm) - Width 0.1 36.5 -Post Debridement (cm) - Depth 0.1 0.1 -Total Square (Post) (cm) 0.01 876.0 -Area of Debridement (cm) - Length 0.1 24 -Area of Debridement (cm) - Width 0.1 36.5 -Total Square (Area) (cm) 0.01 876.0 -Tunneling No No -Undermining/Tunneling No No -Circular Undermining No No -Wound/Ulcer Outcome Not Healed Not Healed -Ulcer Cleansing Rinsed/ Irrigated with Saline -Foul Odor after Cleansing No -Bioengineered Tissue No -Bleeding Controlled with NA Pressure -Treatment Response Procedure Tolerated Well -Debridement - Subq, 1st 20sq cm Yes -Debridement, SubQ, ea addt'l 20sq cm 43 or part thereof Pain Scale: 0-10 Numeric Is Patient Pain Free? Yes Yes - Nurse 3 - General Ulcer D/C NN Start: 10/05/24 10:00 Freq: Status: Active Protocol: Activity Type Activity Date Activity User E-sign Co-sign Detail Recorded Client Recorded Date Recorded By Document 10/05/24 10:52 KW [id number] 10/05/24 10:52 KW Document 10/18/24 10:36 DL [id number] 10/18/24 10:37 DL 10/05/24 10/18/24 10:52 10:36 Wound Care Center Nurse 3 #3- LLE CIRCUMFERENTIAL -Ulcer Cleansing Rinsed/ Irrigated with Saline -Foul Odor after Cleansing No -Primary Dressing Applied NonAdherent Contact Layer -Other Dressing ZEROFORM -Primary Dressing Covered/Secured with Dry Gauze & Roll Gauze, Secured with Tape -Other Covering ABD LLE -Lotion applied to leg before Yes compression wrap -Compression Wrap Burke Wrap -Size of Tubigrip Used Size F -Other applied pt farrowwrap pharaoh wrap Treatment Response Procedure Tolerated Well Pain Scale: 0-10 Numeric Is Patient Pain Free? Yes Yes WC - Visit Discharge Discharge Condition Stable Stable Ambulatory Status Ambulatory Ambulatory Transportation Private Auto Private Auto Medication Reconcilliation completed & No provided to patient/care provider Clinical Summary of Care Provided Yes Assessment/Plan Assessment/Plan (1) Venous insufficiency: CODE(S): I87.2 - Venous insufficiency (chronic) (peripheral) (2) Lymphedema: CODE(S): I89.0 - Lymphedema, not elsewhere classified (3) Cellulitis: CODE(S): L03.90 - Cellulitis, unspecified QUALIFIERS: Site of cellulitis: extremity Site of cellulitis of extremity: lower extremity Laterality: left Qualified Code(s): L03.116 - Cellulitis of left lower limb PLAN: Wash left leg with antibacterial soap and water pat dry apply Xeroform with Adaptic over top and ABD and [place] daily cover with Tubigrip and then he can wear his Farrow wraps over top do this every day He can follow-up with podiatry next week. Cultures were obtained will call with results if need to be on an antibiotic again (4) Morbid obesity: CODE(S): E66.01 - Morbid (severe) obesity due to excess calories (5) Infected wound: CODE(S): T14.8XXA - Other injury of unspecified body region, initial encounter; L08.9 - Local infection of the skin and subcutaneous tissue, unspecified PLAN: Obtained cultures of leg will call with results if need to be on antibiotics
--- NOTE | 2024-10-18 13:30 | WC ---
PHOTO 10/18/24 LLE EDEMA
--- NOTE | 2024-10-20 09:39 | WC ---
PHOTO 10/18/24 LLE EDEMA
--- NOTE | 2024-10-25 09:09 | WC ---
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 N.O. TO START LINEZOLID. CALLED AND LEFT MSG FOR PT. ALSO UPDATED HIS GMA WHO ACCOMPANIES HIM TO APPTS. ALLERGIES REVIEWED. [facility]ED [facility] PER PT PREFERENCE.
--- NOTE | 2024-10-26 09:45 | PCM.WC.PN ---
History of Present Illness Date of Service: 10/26/24 Chief Complaint: Left lower extremity venous ulcerations History of Wound: Patient is a 19-year-old male who presents to the wound care center today by referral from his SRINIVASA Greer. Reports that his legs are swollen and more painful. He was placed on antibiotic prior and had been elevating his legs more and using Burke wraps for compression and reports some improvement in this. States that the legs do have some yellow serous fluid drainage and tend to weep. He did report history of multiple ulcerations however these have improved with the previously stated treatment. He continues to attempt Burke wrap compression and will be going to vascular physician for additional recommendations. He is understanding that he has PMHx of HTN, morbid obesity, peripheral venous insufficiency, lymphedema, and metabolic syndrome are contributing to his current edema and wound problems. He denies any trauma to the lower extremities. Denies N/V/F/chills. Denies further complaints. Subjective Subjective This 19-year-old male returns to the wound care center today for continued follow-up of bilateral lymphedema left greater than right compounded by chronic venous insufficiency/stasis. He reports improvement with use of Farrow wrap to bilateral lower extremity. However does report skin is tearing when removing dressings to the left lower extremity due to continued drainage. He did recently undergo cultures when seen for courtesy visit last week with Albina Lopez NP and was prescribed oral doxycycline however this was not filled yet. He denies constitutional symptoms. Denies further complaints. Objective Data Objective Data Vital Signs: Vital Signs Temp Pulse Resp BP O2 Del Method 97.5 F L 113 H 18 170/96 H Room Air 10/18/24 09:31 10/18/24 09:31 10/18/24 09:31 10/18/24 09:31 10/05/24 10:01 Oxygen Delivery Method Room Air Weight: 228.611 kg Body Mass Index (BMI) 66.4 Lab / Micro Data Micro: Microbiology 10/18/24 Unknown Wound - Other Gram Stain - Final 10/18/24 Unknown Wound - Other Wound Culture - Final Staphylococcus aureus Staphylococcus aureus#2 Staphylococcus epidermidis 10/18/24 Unknown Wound - Other Anaerobic Culture - Final No anaerobic bacteria isolated. Physical Exam Const alert, oriented x3 and no apparent distress General Appearance: cooperative HEENT normocephalic Eyes General Eye: normal appearance of both eyes Neck General: normal visual inspection Lymph Lymphatic: no lymphadenopathy noted and no lymphedema noted Resp normal respiratory effort Cardio regular rate and regular rhythm Extremity no calf tenderness Extremity Narrative: Lower extremity: Vascular: DP and PT pulses weakly palpable secondary to edema. CFT is brisk to all digits of the foot. Normal temperature gradient. Pedal hair growth is appreciated to the digits. Neurologic: Epicritic sensation intact without focal deficit noted. Musculoskeletal: Muscle strength 5 of 5 age-appropriate. There is decreased range of motion of the ankle joint with the knee extended without pain or crepitus bilateral. Full range of motion is appreciated with the knee flexed. Negative Fay test, negative Ojeda test bilateral lower extremity. Full, smooth, pain-free range of motion of the STJ, MTJ and first MTPJ is appreciated. Dermatology: There is edema to bilateral lower extremities with left lower extremity greater than the right lower extremity. Left lower extremity demonstrates healthy appearing skin with reduced turgor. Positive Stemmer sign bilateral second digit. There is hemosiderin deposition and reddish-purpleish discoloration circumferentially about the left lower extremity. There are areas of previous noted healed superficial skin tears with some areas of serous drainage. Circumferential superficial skin tears of the left lower extremity secondary to his edema continue to improve with continued epithelialization noted. No signs of infection. There is improvement in his stasis dermatitis. Skin no rashes or lesions noted General Skin Exam: venous stasis and dermatitis Neuro moves all extremities Debridement Note Debridement Note No debridement was completed: No debridement was completed today Post-Debridement Measurements and Additional Note: Post-Debridement Measurements/Treatment - Nurse 1 - General Ulcer Assessment Start: 10/05/24 10:00 Freq: Status: Active Protocol: ANNA.HIRO Activity Type Activity Date Activity User E-sign Co-sign Detail Recorded Client Recorded Date Recorded By Document 10/05/24 10:01 KW [id number] 10/05/24 10:13 KW Document 10/18/24 09:31 DL [id number] 10/18/24 09:39 DL 10/05/24 10/18/24 10:01 09:31 - Today's Visit Information Type of service Follow-up Visit Follow-up Visit (Physician/CLIENT SERVICE CONSULTANT (Physician/CLIENT SERVICE CONSULTANT ) ) Arrival Mode Ambulatory Ambulatory Transfer Assistance None Accompanied by grandmother Patient Identification Verified (Name & Yes Yes ) Patient Requires Transmission-Based No Precautions Height and Weight Body Mass Index (BMI) 66.4 66.4 BMI Classification Obese Obese Vital Signs Temperature (97.8 F-99.1 F) 99.3 F H 97.5 F L Temperature Source Temporal Temporal Pulse Rate (60-100) 100 113 H Pulse Location Monitor Monitor Respiratory Rate (12-18) 18 18 Respiratory rate source Observation Observation Oxygen Delivery Method Room Air Blood Pressure (90/60-120/80) 151/97 H 170/96 H Blood Pressure Mean (mm Hg) 115 120 Source Monitor History Since Last Visit- (Skip if this is Patient's initial visit) Have you changed medications since your No No last visit? Any new allergies or adverse reactions No No Had a fall/change in ADL's that may No No increase risk of falls Signs or symptoms of abuse and/or No No neglect since last visit Have you been in the hospital since your No No last visit? Has dressing in place as prescribed Yes Yes Has compression in place as prescribed Yes Yes Has offloadiing in place as prescribed N/A N/A Experienced any changes in pain level or No No management Left Footwear Regular Shoe Right Footwear Regular Shoe Pain Scale: 0-10 Numeric Is Patient Pain Free? Yes Yes WC - Nurse 1 - General Ulcer Measurement Start: 10/05/24 10:00 Freq: Status: Active Protocol: Activity Type Activity Date Activity User E-sign Co-sign Detail Recorded Client Recorded Date Recorded By Document 10/05/24 10:01 KW [id number] 10/05/24 10:13 KW Document 10/18/24 09:31 DL [id number] 10/18/24 09:39 DL 10/05/24 10/18/24 10:01 09:31 Wound Center Nurse 1 #3- LLE CIRCUMFERENTIAL -Current Size (cm) - Length 16 -Current Size (cm) - Width 30 -Current Size (cm) - Depth 0.1 -Total Square Cm 480 -Photo Taken Yes -Classification - Thickness Partial Thickness -Exudate Amt Medium -Exudate Type Serosanguineous -Wound Margin Distinct, Outline Attached -Granulation Amt Large (67-100%) -Granulation Quality Pharr -Necrosis Amt None Present (0 %) -Structure Exposed N/A -Texture (Mellissa-wound Skin Appearance) Localized Edema ,Rash -Moisture (Mellissa-wound Skin Appearance) Weeping -Color (Mellissa-wound Skin Appearance) No Abnormality -Temperature (Mellissa-wound Skin No Abnormality Appearance) (Pt Warm) -Tenderness on Palpation (Mellissa-wound No Skin Appearance) -Ulcer Cleansing Soap and Water -Foul Odor after Cleansing No Left Calf (cm) 58.5 59.5 Left Ankle (cm) 37 34.8 WC - Nurse 2 - General Ulcer CM Notes Start: 10/05/24 10:00 Freq: Status: Active Protocol: Activity Type Activity Date Activity User E-sign Co-sign Detail Recorded Client Recorded Date Recorded By Document 10/05/24 10:26 [facility] [id number] 10/05/24 10:30 [facility] Document 10/18/24 09:56 [facility] [id number] 10/18/24 10:07 [facility] 10/05/24 10/18/24 10:26 09:56 Wound Center Nurse 2 #3- LLE CIRCUMFERENTIAL -Time 10:26 09:57 -Correct Patient Yes -Correct Side, Site, Position Yes -Correct Procedure Yes -Procedure Performed Yes -Type of Procedure Debridement -Clinical Debridement Subcutaneous -Tissue Removed Subcutaneous -Post Debridement (cm) - Length 0.1 24 -Post Debridement (cm) - Width 0.1 36.5 -Post Debridement (cm) - Depth 0.1 0.1 -Total Square (Post) (cm) 0.01 876.0 -Area of Debridement (cm) - Length 0.1 24 -Area of Debridement (cm) - Width 0.1 36.5 -Total Square (Area) (cm) 0.01 876.0 -Tunneling No No -Undermining/Tunneling No No -Circular Undermining No No -Wound/Ulcer Outcome Not Healed Not Healed -Ulcer Cleansing Rinsed/ Irrigated with Saline -Foul Odor after Cleansing No -Bioengineered Tissue No -Bleeding Controlled with NA Pressure -Treatment Response Procedure Tolerated Well -Debridement - Subq, 1st 20sq cm Yes -Debridement, SubQ, ea addt'l 20sq cm 43 or part thereof Pain Scale: 0-10 Numeric Is Patient Pain Free? Yes Yes ANNA - Nurse 3 - General Ulcer D/C NN Start: 10/05/24 10:00 Freq: Status: Active Protocol: Activity Type Activity Date Activity User E-sign Co-sign Detail Recorded Client Recorded Date Recorded By Document 10/05/24 10:52 KW [id number] 10/05/24 10:52 KW Document 10/18/24 10:36 DL [id number] 10/18/24 10:37 DL 10/05/24 10/18/24 10:52 10:36 Wound Care Center Nurse 3 #3- LLE CIRCUMFERENTIAL -Ulcer Cleansing Rinsed/ Irrigated with Saline -Foul Odor after Cleansing No -Primary Dressing Applied NonAdherent Contact Layer -Other Dressing ZEROFORM -Primary Dressing Covered/Secured with Dry Gauze & Roll Gauze, Secured with Tape -Other Covering ABD LLE -Lotion applied to leg before Yes compression wrap -Compression Wrap Burke Wrap -Size of Tubigrip Used Size F -Other applied pt farrowwrap pharaoh wrap Treatment Response Procedure Tolerated Well Pain Scale: 0-10 Numeric Is Patient Pain Free? Yes Yes WC - Visit Discharge Discharge Condition Stable Stable Ambulatory Status Ambulatory Ambulatory Transportation Private Auto Private Auto Medication Reconcilliation completed & No provided to patient/care provider Clinical Summary of Care Provided Yes Assessment/Plan Assessment/Plan (1) Non-pressure chronic ulcer of left calf limited to breakdown of skin: CODE(S): L97.221 - Non-pressure chronic ulcer of left calf limited to breakdown of skin (2) Venous (peripheral) insufficiency: CODE(S): I87.2 - Venous insufficiency (chronic) (peripheral) (3) Lymphedema of left lower extremity: CODE(S): I89.0 - Lymphedema, not elsewhere classified (4) Morbid obesity: CODE(S): E66.01 - Morbid (severe) obesity due to excess calories (5) Metabolic syndrome: CODE(S): E88.810 - Metabolic syndrome PLAN: Plan Patient seen and evaluated Patient currently demonstrates new circumferential open areas of superficial ulceration. Circumferential ulceration secondary to skin tear measures 50 cm x 15 cm x 0.1 cm during visit 09/21/24. Today they measure 0.1 cm x 0.1 cm x 0.1 cm. Despite reduction in ulceration size, Remainder of skin however does remain friable secondary to his previously healed skin tears and chronic phleobolymphedema to which he is understanding of risk of reulceration. There is still some venous scant weeping of serous fluid secondary to significant edema, but this is improving slowly. Xeroform applied to wound bed with DSD and Farrow wrapapplied to left lower extremity. Farrow wrap compression to right lower extremities. He will begin washing site with Hibiclens to the left lower extremity and will continue oral doxycycline as instructed for recent positive cultures of Staph aureus and staph epi both of which are likely skin contaminants. Bilateral lower extremities continue to look good in terms of edema reduction versus his previous visit. I have previously discussed with the patient and his grandmother applying for Farrow wrap and lymphedema pumps to aid in controlling lower extremity edema and his lymphedema. Orders were placed for this on 08/31/2024. He did receive Farrow wrap compression and this was applied today as stated above. And he has received his lymphedema pump as of yesterday, 10/25/2024. I discussed again that it has been at least 10 weeks following standard care of his multiple skin tears/ulcerative sites secondary to chronic venous stasis (VLUs) and in addition to his lipodermatosclerosis/phlebolymphedema, positive Stemmer sign of the second digit and stasis dermatitis plus hyperpigmentation/hemosiderin deposition within the left lower extremity he would qualify for a lymphedema pump. We have attempted 10 weeks of compression therapy in form of 3M compression wrap and Unna boot compression. Prior to this he had been attempting Burke wrap compression. 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 He does have +4 pitting edema of bilateral lower extremities. He reports having his VLU of the left lower extremity for roughly 10 weeks without significant improvement. His lymphedema has been present for greater than 6 months but is becoming more of a problem with continued swelling/enlargement of the lower extremities. Debridement has been performed in addition to compression treatment stated above and Cristela to the wound sites however his wounds have either remain unchanged or have increased over the last 4 weeks due to continued significant symptoms of his phlebolymphedema and difficulty maintaining standard compression therapy. Due to patient's current course of therapy without significant improvement it is likely he would require a thigh applied [id number] device to aid in healing of his wounds to optimize the current SOC dressings, improve blood flow to the lower extremity, decreased pain, and again aid in his healing of wounds. He was approved for and has received the lymphedema pump. And we will begin use today. Discussed we will continue Farrow wrap to his left lower extremity to continue to control edema in addition to use of lymphedema pumps. I have previously discussed with him it is imperative for him to begin diet and weight control. He is currently not diabetic but I have discussed with him that with metabolic syndrome he is at higher risk of development of diabetes. Most recent A1c was 5.9%. Discussed with weight loss he would be able to prevent onset of early diabetes, improve his blood pressure, and improve his lymphedema and his venous insufficiency. Discussed he will always likely require compression stocking to aid in control of his edema and may require the use of lymphedema pumps. He is understanding of this. Discussed continued evaluation to ensure recidivism of his previous wounds do not occur. He is in agreement with this plan. He did previously undergo venous studies on 08/21/2024. 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 Left common femoral vein incompetent, left great saphenous vein segmentally incompetent. These findings were discussed with him 09/28/2024. He will undergo follow-up with vascular surgery, Dr. Narayan and has been scheduled for LEAS/Venous studies with CTA angiogram which demonstrated no proximal blockages. He did see Dr. Narayan September 19. They are in agreement with current treatment and plans and do feel weight reduction will also aid in improvement in his symptoms. They will follow again in 4 months. He also has upcoming appointment with CRIS Diaz on September 28. Due to multiple areas that are open he was prescribed a course of oral doxycycline 100 mg twice daily x 14 days (stop date 11/09/2024). Will continue to follow and monitor. He did see repair manager for appointment 10/03/2024. He states this did go well and he will follow again at the end of this month. Will send referral to product delivery specialist, Dr. Balaji Thompson MD for further evaluation of his lipodermatosclerosis/levo lymphedema for recommendations and improvement of the skin. The following work up and care recommendations were made: Dressing: Farrow wrap right lower extremity, Xeroform left lower extremity dry sterile dressing and Farrow wrap left lower extremity. Wash: Hibiclens left lower extremity Tissue growth optimization: None Offload: Farrow wrap with eventual transition into compression stockings/lymphedema pump Vascular: Do not feel vascular status is impacting healing status. Venous stasis remains difficult in treatment. Edema: Farrow wrap with eventual transition into compression stocking/lymphedema pump. Continue to elevate lower extremities when at rest to aid in edema control. Infection: No signs of infection. Currently taking oral doxycycline as stated above. Pain: No pain currently. May take [id number] Tylenol Extra Strength for any discomfort Host factors: Metabolic syndrome, morbid obesity, venous insufficiency/stasis, lymphedema, and hypertension all affect healing status I answered all the patient's questions. To return to the wound healing center in 2 weeks or call sooner if the patient has any questions or concerns.
[2024-10-26 10:01] VITALS: BP 154/86; PULSE 111; RESP 16; TEMP 37.6; BMI 66.4
== END 2024-11-04 23:59 | disposition home or self-care (01) ==
LOC: WC 10:00
PROVIDERS: PCP Physician Assistant; Referring Provider Physician Assistant; Visit Provider Student in an Organized Health Care Education/Training Program
DX: I87.2 Venous insufficiency (chronic) (peripheral) (principal); L97.221 Non-pressure chronic ulcer of left calf limited to breakdown of skin; E66.01 Morbid (severe) obesity due to excess calories; Z68.44 Body mass index [BMI] 60.0-69.9, adult; L03.116 Cellulitis of left lower limb; I89.0 Lymphedema, not elsewhere classified; I10 Essential (primary) hypertension; E88.810 Metabolic syndrome
CPT/HCPCS: 11042; 11045; 87070; 87075; 87077; 87186; 87205; 99213; G0463

== ENCOUNTER 2024-11-09 09:55 | Outpatient (RCR) | payer MEDICAID, SELFPAY ==
[2024-11-05 00:09] VITALS: BP 154/86; PULSE 111; RESP 16; TEMP 37.6; BMI 66.4
[2024-11-09 09:58] VITALS: BP 160/90; PULSE 103; RESP 20; TEMP 37.7; BMI 66.4
--- NOTE | 2024-11-09 10:27 | PCM.WC.PN ---
History of Present Illness Date of Service: 11/09/24 Chief Complaint: Left lower extremity venous ulcerations History of Wound: Patient is a 19-year-old male who presents to the wound care center today by referral from his SRINIVASA Greer. Reports that his legs are swollen and more painful. He was placed on antibiotic prior and had been elevating his legs more and using Burke wraps for compression and reports some improvement in this. States that the legs do have some yellow serous fluid drainage and tend to weep. He did report history of multiple ulcerations however these have improved with the previously stated treatment. He continues to attempt Burke wrap compression and will be going to vascular physician for additional recommendations. He is understanding that he has PMHx of HTN, morbid obesity, peripheral venous insufficiency, lymphedema, and metabolic syndrome are contributing to his current edema and wound problems. He denies any trauma to the lower extremities. Denies N/V/F/chills. Denies further complaints. Subjective Subjective This 19-year-old male returns to the wound care center today for continued follow-up of bilateral lymphedema left greater than right compounded by chronic venous insufficiency/stasis. He reports continued improvement with use of Farrow wrap to bilateral lower extremity. Previous skin tearing has been improved during dressing changes with use of Adaptic. He did complete oral antibiotic, doxycycline. Still awaiting follow-up with dermatology. He denies constitutional symptoms. Denies further complaints. Objective Data Objective Data Vital Signs: Vital Signs Temp Pulse Resp BP 99.9 F H 103 H 20 H 160/90 H 11/09/24 09:58 11/09/24 09:58 11/09/24 09:58 11/09/24 09:58 Weight: 228.611 kg Body Mass Index (BMI) 66.4 Physical Exam Const alert, oriented x3 and no apparent distress General Appearance: cooperative HEENT normocephalic Eyes General Eye: normal appearance of both eyes Neck General: normal visual inspection Lymph Lymphatic: no lymphadenopathy noted and lymphedema Resp normal respiratory effort Cardio regular rate and regular rhythm Extremity no calf tenderness Extremity Narrative: Lower extremity: Vascular: DP and PT pulses weakly palpable secondary to edema. CFT is brisk to all digits of the foot. Normal temperature gradient. Pedal hair growth is appreciated to the digits. Neurologic: Epicritic sensation intact without focal deficit noted. Musculoskeletal: Muscle strength 5 of 5 age-appropriate. There is decreased range of motion of the ankle joint with the knee extended without pain or crepitus bilateral. Full range of motion is appreciated with the knee flexed. Negative Fay test, negative Ojeda test bilateral lower extremity. Full, smooth, pain-free range of motion of the STJ, MTJ and first MTPJ is appreciated. Dermatology: There is edema to bilateral lower extremities with left lower extremity greater than the right lower extremity. Left lower extremity demonstrates healthy appearing skin proximally with reduced turgor. Positive Stemmer sign bilateral second digit. There is hemosiderin deposition and reddish-purpleish discoloration circumferentially about the left lower extremity. There are areas of previous noted healed superficial skin tears with some areas of serous drainage. Circumferential superficial skin tears of the left lower extremity secondary to his edema continue to improve with continued epithelialization noted. No signs of infection. There is improvement in his stasis dermatitis with completion of oral antibiotic and use of compression dressings. Skin General Skin Exam: turgor decreased, venous stasis and dermatitis Neuro moves all extremities Debridement Note Debridement Note No debridement was completed: No debridement was completed today Post-Debridement Measurements and Additional Note: Post-Debridement Measurements/Treatment - Nurse 1 - General Ulcer Assessment Start: 11/09/24 09:58 Freq: Status: Active Protocol: ANDREY Activity Type Activity Date Activity User E-sign Co-sign Detail Recorded Client Recorded Date Recorded By Document 11/09/24 09:58 DL [id number] 11/09/24 10:07 DL 11/09/24 09:58 - Today's Visit Information Type of service Follow-up Visit (Physician/BUSINESS SERVICES VICE PRESIDENT ) Arrival Mode Ambulatory Patient Identification Verified (Name & Yes ) Patient Requires Transmission-Based No Precautions Height and Weight Body Mass Index (BMI) 66.4 BMI Classification Obese Vital Signs Temperature (97.8 F-99.1 F) 99.9 F H Temperature Source Temporal Pulse Rate (60-100) 103 H Pulse Location Monitor Respiratory Rate (12-18) 20 H Respiratory rate source Observation Blood Pressure (90/60-120/80) 160/90 H Blood Pressure Mean (mm Hg) 113 Source Monitor History Since Last Visit- (Skip if this is Patient's initial visit) Have you changed medications since your No last visit? Any new allergies or adverse reactions No Had a fall/change in ADL's that may No increase risk of falls Signs or symptoms of abuse and/or No neglect since last visit Have you been in the hospital since your No last visit? Has dressing in place as prescribed Yes Has compression in place as prescribed Yes Has offloadiing in place as prescribed N/A Experienced any changes in pain level or No management Pain Scale: 0-10 Numeric Is Patient Pain Free? Yes WC - Nurse 1 - General Ulcer Measurement Start: 11/09/24 09:58 Freq: Status: Active Protocol: Activity Type Activity Date Activity User E-sign Co-sign Detail Recorded Client Recorded Date Recorded By Document 11/09/24 09:58 [id number] 11/09/24 10:07 DL 11/09/24 09:58 Wound Center Nurse 1 #3- LLE CIRCUMFERENTIAL -Current Size (cm) - Length 0.1 -Current Size (cm) - Width 0.1 -Current Size (cm) - Depth 0.1 -Total Square Cm 0.01 -Exudate Amt None Present -Wound Margin Distinct, Outline Attached -Granulation Amt Small (1-33%) -Granulation Quality [place] -Necrosis Amt None Present (0 %) -Structure Exposed N/A -Texture ([place]-wound Skin Appearance) Scarring -Moisture ([place]-wound Skin Appearance) No Abnormality -Color ([place]-wound Skin Appearance) Hemosiderin Staining -Temperature ([place]-wound Skin No Abnormality Appearance) (Pt Warm) -Ulcer Cleansing Soap and Water -Foul Odor after Cleansing No Left Calf (cm) 60 Left Ankle (cm) 35.8 WC - Nurse 2 - General Ulcer CM Notes Start: 11/09/24 09:58 Freq: Status: Active Protocol: Activity Type Activity Date Activity User E-sign Co-sign Detail Recorded Client Recorded Date Recorded By Document 11/09/24 10:18 [facility] [id number] 11/09/24 10:23 [facility] 11/09/24 10:18 Wound Center Nurse 2 #3- LLE CIRCUMFERENTIAL -Time 10:19 -Procedure Performed No -Post Debridement (cm) - Length 0 -Post Debridement (cm) - Width 0 -Post Debridement (cm) - Depth 0 -Total Square (Post) (cm) 0 -Area of Debridement (cm) - Length 0 -Area of Debridement (cm) - Width 0 -Total Square (Area) (cm) 0 -Wound/Ulcer Outcome Healed- Epithelialized -Bleeding Controlled with NA Pain Scale: 0-10 Numeric Is Patient Pain Free? 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 Circumferential ulceration secondary to skin tear measures 50 cm x 15 cm x 0.1 cm during visit 09/21/24. Today they are healed but fraiable. Despite reduction in ulceration size, Remainder of skin however does remain friable secondary to his previously healed skin tears and chronic phleobolymphedema to which he is understanding of risk of reulceration. There is still some venous scant weeping of serous fluid secondary to significant edema, but this is improving slowly. Xeroform applied to wound bed with DSD and Farrow wrapapplied to left lower extremity. Farrow wrap compression to right lower extremities. He will continue washing site with Hibiclens to the left lower extremity and has finished oral doxycycline as instructed for recent positive cultures of Staph aureus and staph epi both of which are likely skin contaminants. Bilateral lower extremities continue to look good in terms of edema reduction versus his previous visit. I have previously discussed with the patient and his grandmother applying for Farrow wrap and lymphedema pumps to aid in controlling lower extremity edema and his lymphedema. Orders were placed for this on 08/31/2024. He did receive Farrow wrap compression and this was applied today as stated above. And he has received his lymphedema pump as of 10/25/2024, but has not attempted use. He was urged to begin use to aid in continued reduction of edema and improved control of his lymphedema. I discussed again that it has been at least 10 weeks following standard care of his multiple skin tears/ulcerative sites secondary to chronic venous stasis (VLUs) and in addition to his lipodermatosclerosis/phlebolymphedema, positive Stemmer sign of the second digit and stasis dermatitis plus hyperpigmentation/hemosiderin deposition within the left lower extremity he would qualify for a lymphedema pump. We have attempted 10 weeks of compression therapy in form of 3M compression wrap and Unna boot compression. Prior to this he had been attempting Burke wrap compression. 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 He does have +4 pitting edema of bilateral lower extremities. He reports having his VLU of the left lower extremity for roughly 10 weeks without significant improvement. His lymphedema has been present for greater than 6 months but is becoming more of a problem with continued swelling/enlargement of the lower extremities. Debridement has been performed in addition to compression treatment stated above and Cristela to the wound sites however his wounds have either remain unchanged or have increased over the last 4 weeks due to continued significant symptoms of his phlebolymphedema and difficulty maintaining standard compression therapy. Due to patient's current course of therapy without significant improvement it is likely he would require a thigh applied [id number] device to aid in healing of his wounds to optimize the current SOC dressings, improve blood flow to the lower extremity, decreased pain, and again aid in his healing of wounds. He was approved for and has received the lymphedema pump. And we will begin use today. Discussed we will continue Farrow wrap to his left lower extremity to continue to control edema in addition to use of lymphedema pumps. I have previously discussed with him it is imperative for him to begin diet and weight control. He is currently not diabetic but I have discussed with him that with metabolic syndrome he is at higher risk of development of diabetes. Most recent A1c was 5.9%. Discussed with weight loss he would be able to prevent onset of early diabetes, improve his blood pressure, and improve his lymphedema and his venous insufficiency. Discussed he will always likely require compression stocking to aid in control of his edema and may require the use of lymphedema pumps. He is understanding of this. Discussed continued evaluation to ensure recidivism of his previous wounds do not occur. He is in agreement with this plan. He did previously undergo venous studies on 08/21/2024. 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 Left common femoral vein incompetent, left great saphenous vein segmentally incompetent. These findings were discussed with him 09/28/2024. He will continue follow-up with vascular surgery, Dr. Narayan and has been scheduled for LEAS/Venous studies with CTA angiogram which demonstrated no proximal blockages. He did see Dr. Narayan September 19. They are in agreement with current treatment and plans and do feel weight reduction will also aid in improvement in his symptoms. They will follow again in 3-4 months. Did recently see CRIS Diaz at the end of October. Due to multiple areas that are open he was prescribed a course of oral doxycycline 100 mg twice daily x 14 days (stop date 11/09/2024). This has improved condition and addition to compression therapy. He did see general utility worker for appointment 10/03/2024. He states this did go well and he will follow again monthly. Will send referral to publications editor, Dr. Balaji Thompson MD for further evaluation of his lipodermatosclerosis/levo lymphedema for recommendations and improvement of the skin. The following work up and care recommendations were made: Dressing: Farrow wrap right lower extremity, Xeroform left lower extremity dry sterile dressing and Farrow wrap left lower extremity. Wash: Hibiclens left lower extremity Tissue growth optimization: None Offload: Farrow wrap with eventual transition into compression stockings/lymphedema pump Vascular: Do not feel vascular status is impacting healing status. Venous stasis remains difficult in treatment. Edema: Farrow wrap with eventual transition into compression stocking/lymphedema pump. Continue to elevate lower extremities when at rest to aid in edema control. Infection: No signs of infection. Currently taking oral doxycycline as stated above. Pain: No pain currently. May take [id number] Tylenol Extra Strength for any discomfort Host factors: Metabolic syndrome, morbid obesity, venous insufficiency/stasis, lymphedema, and hypertension all affect healing status With site stable he is currently being discharged from the wound care center but is recommended to follow-up with dermatology for continued improvement in skin changes associated with his phlebolymphedema and lipodermatosclerosis. I answered all the patient's questions. To return to the wound healing center as needed or call sooner if the patient has any questions or concerns.
== END 2024-12-04 23:59 | disposition home or self-care (01) ==
LOC: WC 09:55
PROVIDERS: PCP Physician Assistant; Referring Provider Physician Assistant; Visit Provider Student in an Organized Health Care Education/Training Program
DX: I89.0 Lymphedema, not elsewhere classified (principal); E66.01 Morbid (severe) obesity due to excess calories; Z68.44 Body mass index [BMI] 60.0-69.9, adult; I10 Essential (primary) hypertension; I87.2 Venous insufficiency (chronic) (peripheral); E88.810 Metabolic syndrome; Z79.85 Long-term (current) use of injectable non-insulin antidiabetic drugs; Z79.899 Other long term (current) drug therapy
CPT/HCPCS: 99213; G0463

== ENCOUNTER → 2024-12-14 | Outpatient (CLI) | payer MEDICAID, SELFPAY | END | disposition home or self-care (01) | LOC: SL 11:11 | PROVIDERS: PCP Physician Assistant; Referring Provider Physician Assistant; Visit Provider Physician Assistant | DX: G47.30 Sleep apnea, unspecified (principal) | CPT/HCPCS: 95806 ==

== ENCOUNTER → 2024-12-19 | Outpatient (CLI) | payer MEDICAID, SELFPAY ==
--- NOTE | 2024-12-19 14:33 | US_ITS ---
PROCEDURE: KIDNEY AND BLADDER 12/19/2024 REASON FOR EXAM: UNCONTROLLED HTN TECHNIQUE: KIDNEY AND BLADDER COMPARISON: Prior CT scan dated September 05, 2024. FINDINGS: Kidneys: Normal renal sizes, parenchymal thicknesses, and echotextures. Combs: No evidence of hydronephrosis Cysts or Masses: No cysts or large solid renal masses. Other: RIGHT Kidney Size: 13.6 cm x 5.4 cm x 5.2 cm Volume: 199.64 mL Cortical Thickness (if discernible): 20 mm (>6mm is normal) LEFT Kidney Size: 13.9 cm x 5.8 cm x 5.6 cm Volume: 237.27 mL Cortical Thickness (if discernible): Meters (>6mm is normal) Incidental note is made of gallstones and fatty infiltration of the liver. US/Kidney and Bladder IMPRESSION: NORMAL RENAL ULTRASOUND. Reading Location: [id number]
--- NOTE | 2024-12-19 14:33 | US_ITS ---
PROCEDURE: KIDNEY AND BLADDER 12/19/2024 REASON FOR EXAM: UNCONTROLLED HTN TECHNIQUE: KIDNEY AND BLADDER COMPARISON: Prior CT scan dated September 05, 2024. FINDINGS: Kidneys: Normal renal sizes, parenchymal thicknesses, and echotextures. [place]: No evidence of hydronephrosis Cysts or Masses: No cysts or large solid renal masses. Other: RIGHT Kidney Size: 13.6 cm x 5.4 cm x 5.2 cm Volume: 199.64 mL Cortical Thickness (if discernible): 20 mm (>6mm is normal) LEFT Kidney Size: 13.9 cm x 5.8 cm x 5.6 cm Volume: 237.27 mL Cortical Thickness (if discernible): Meters (>6mm is normal) Incidental note is made of gallstones and fatty infiltration of the liver. US/Kidney and Bladder IMPRESSION: NORMAL RENAL ULTRASOUND. Reading Location: [id number]
== END | disposition home or self-care (01) ==
LOC: US 14:27
PROVIDERS: PCP Physician Assistant; Referring Provider Physician Assistant; Visit Provider Physician Assistant
DX: I10 Essential (primary) hypertension (principal)
CPT/HCPCS: 76770

== ENCOUNTER → 2025-01-18 | Outpatient (CLI) | payer MEDICAID, SELFPAY | END | disposition home or self-care (01) | LOC: SL 13:48 | PROVIDERS: PCP Physician Assistant; Referring Provider Physician Assistant; Visit Provider Physician Assistant | DX: Z46.89 Encounter for fitting and adjustment of other specified devices (principal) ==

== ENCOUNTER 2025-03-21 09:45 | Outpatient (RCR) | payer MEDICAID, SELFPAY ==
[2025-03-07 09:22] VITALS: BP 129/67; PULSE 111; RESP 16; TEMP 37.1
--- NOTE | 2025-03-07 09:45 | LES_PTH ---
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 * PASD stain is negative for fungal organisms. MICROSCOPIC DESCRIPTION Slides are reviewed. All matched controls reacted appropriately. These tests were developed and their performance characteristics determined by [facility]. They may not have been cleared or approved by the U.[place]. Food and Drug Administration. The FDA has determined that such clearance or approval is not necessary. The above immunohistochemical markers and/or special stains have been reviewed by the Pathologist. GROSS DESCRIPTION A. Received in formalin labeled with the patient's name and date of . Designated as " LLE" is a 0.5 x 0.5 cm hernandez skin punch with patchy erythema, excised to a depth of 0.9 cm. The resection margin is inked black and the specimen is bisected. Entirely submitted in 1 cassette. ND 03/07/2025 CPT:48595,57898
--- NOTE | 2025-03-07 12:58 | PCM.WC.PN ---
History of Present Illness Date of Service: 03/07/25 Chief Complaint: Left lower extremity nonpressure ulcerations History of Wound: Patient is a 19-year-old male who presents to the wound care center today by referral from his SRINIVASA Greer. Reports that his legs are swollen and more painful. He was placed on antibiotic prior and has not been elevating his legs more . He does use his Burke wraps and his pumps for compression and reports some improvement in this. States that the legs do have lots of yellow serous fluid drainage and tend to weep. He has been changing his dressings twice daily. He did report history of multiple ulcerations however these have improved with the previously stated treatment. He continues to attempt Burke wrap compression and will be going to vascular physician for additional recommendations. He is understanding that he has PMHx of HTN, morbid obesity, peripheral venous insufficiency, lymphedema, and metabolic syndrome are contributing to his current edema and wound problems. He denies any trauma to the lower extremities. Denies N/V/F/chills. Denies further complaints. He is currently taking Ozempic for weight loss and he is at the lowest dose he is just 2 weeks and it has curbed his appetite. Mind you only the nonpressure ulcers are on the left leg partially circumferential but not totally. He complains they itch terribly. And the skin underneath the ulcers looks beautiful its supple and flesh-colored. Progress of Wound: So today is my first look and treatment of him he has been seeing podiatry and other people at the wound center and I am going to grab a biopsy of the ulcers and see what they come up with on the pathology report. He seems to be doing well with the Xeroform dressing so we will continue with Xeroform though they look wet and they are raised and it does look vascular I am not sure what is going on with his legs because the skin surrounding the ulcerations is beautiful it does not look like he is not getting circulation he has a lot of hair on his legs all the way down to his toes so it is not like he is lacking circulation to the leg arterial flow is good pedal pulses were there he did not really have a whole lot of swelling in his leg today at all. Subjective Subjective Grandmother was here with him today and he she and the patient agree with plan of getting the biopsy continue with the Xeroform dressings. Objective Data Objective Data Does not appear to be a sign of infection he does have some partial circumferential type ulcerations going on only on the left leg. Vital Signs: Vital Signs Temp Pulse Resp BP 98.7 F 111 H 16 129/67 H 03/07/25 09:22 10 09:22 03/07/25 09:22 03/07/25 09:22 Lab / Micro Data Attestation: I reviewed the patient's lab results. Lab results narrative: Patient is going to need his thyroid readjusted if he does not have a family doctor he needs to be on thyroid medications for hypothyroidism He is also anemic so we need to really check his thyroid again to make sure that that is the issue again and then readjust medications accordingly We might also want to be checking him for any bowel problems to that might be causing this skin issue. Physical Exam Const oriented x3 General Appearance: cooperative Exam Limitations: no limitations HEENT Head and Scalp: normal to inspection Face and Sinus: normal facial exam Eyes General Eye: normal appearance of both eyes Neck full ROM General: normal visual inspection Resp normal respiratory effort Effort and Inspection: able to speak in complete sentences Auscultation: clear to auscultation bilaterally Cardio regular rate and regular rhythm Palpation: normal PMI Rate: regular rate Rhythm: regular rhythm Extremity General Extremity: normal exam except as noted and edema bilateral Skin Skin Narrative: Open nonhealing chronic ulcers on the left lower leg that are circumferential wet looking on normal flesh skin Neuro oriented x3 Psych Appearance: grossly normal Speech: normal speech Thought Content: normal thought content Judgement: judgement good Debridement Note Debridement Note No debridement was completed: No debridement was completed today Post-Debridement Measurements and Additional Note: Post-Debridement Measurements/Treatment - Nurse 1 - General Ulcer Assessment Start: 03/07/25 09:22 Freq: Status: Active Protocol: WC.[place] Activity Type Activity Date Activity User E-sign Co-sign Detail Recorded Client Recorded Date Recorded By Document 03/07/25 09:22 [id number] 03/07/25 09:27 CP 03/07/25 09:22 - Today's Visit Information Type of service Follow-up Visit (Physician/VICE PRESIDENT [employer] ) Arrival Mode Ambulatory Patient Identification Verified (Name & Yes ) Vital Signs Temperature (97.8 F-99.1 F) 98.7 F Temperature Source Temporal Pulse Rate (60-100) 111 H Pulse Location Monitor Respiratory Rate (12-18) 16 Respiratory rate source Observation Blood Pressure (90/60-120/80) 129/67 H Blood Pressure Mean (mm Hg) 87 Source Monitor Position Sitting Blood Pressure Location Right Forearm Pain Scale: 0-10 Numeric Is Patient Pain Free? No left lower extrem -Description Aching -Intensity 3 -Duration (hours) Acute -Pain Behavior No Change in Behavior -Alleviating Factors/Interventions Distraction -Effectiveness of Alleviating Factor/ Moderately Intervention effective WC - Nurse 1 - General Ulcer Measurement Start: 03/07/25 09:22 Freq: Status: Active Protocol: Activity Type Activity Date Activity User E-sign Co-sign Detail Recorded Client Recorded Date Recorded By Document 03/07/25 09:22 CP [id number] 03/07/25 09:27 CP 03/07/25 09:22 Wound Center Nurse 1 #3- LLE CIRCUMFERENTIAL -Current Size (cm) - Length 17 -Current Size (cm) - Width 58 -Current Size (cm) - Depth 0.1 -Total Square Cm 986 -Date of Last Picture (Recall this 03/07/25 field) -Photo Taken Yes -Exudate Amt Large -Exudate Type Serous -Wound Margin Flat & Intact -Granulation Amt Large (67-100%) -Granulation Quality Red -Slough/Fibrin No -Structure Exposed N/A -Texture (Mellissa-wound Skin Appearance) No Abnormality -Moisture (Mellissa-wound Skin Appearance) No Abnormality -Color (Mellissa-wound Skin Appearance) No Abnormality -Temperature (Mellissa-wound Skin No Abnormality Appearance) (Pt Warm) -Ulcer Cleansing Soap and Water -Foul Odor after Cleansing No Right Calf (cm) 56 Right Ankle (cm) 36 Left Calf (cm) 58 Left Ankle (cm) 38 WC - Nurse 2 - General Ulcer CM Notes Start: 03/07/25 09:22 Freq: Status: Active Protocol: Activity Type Activity Date Activity User E-sign Co-sign Detail Recorded Client Recorded Date Recorded By Document 03/07/25 09:51 DS [id number] 03/07/25 09:53 DS Edit Result 03/07/25 09:51 DS (1) [id number] 03/07/25 10:04 DS Edit Result 03/07/25 09:51 DS (2) [id number] 03/07/25 10:05 DS (1) #3- LLE CIRCUMFERENTIAL - Clinical Debridement => Subcutaneous - Tissue Removed => Subcutaneous - Debridement - Subq, 1st 20sq cm => Yes - Wound Comment(s) => debrided on LLE along with biospy (2) #3- LLE CIRCUMFERENTIAL - Clinical Debridement Subcutaneous => - Tissue Removed Subcutaneous => - Debridement - Subq, 1st 20sq cm Yes => - Wound Comment(s) debrided on LLE along with biospy => 03/07/25 09:51 Wound Center Nurse 2 #3- LLE CIRCUMFERENTIAL -Time 09:51 -Correct Patient Yes -Correct Side, Site, Position Yes -Correct Procedure Yes -Procedure Performed Yes -Type of Procedure Biopsy -Wound/Ulcer Outcome Not Healed -Ulcer Cleansing Rinsed/ Irrigated with Saline -Foul Odor after Cleansing No -Bioengineered Tissue No -Injectable Lidocaine w/ Epi (%) 1 -Injectable Lidocaine w/ Epi (mls) 10 -Bleeding Controlled with Pressure -Treatment Response Procedure Tolerated Well -I&D / Paring / Biopsy Punch bx skin ( includes simple close, if done ), single lesion Pain Scale: 0-10 Numeric Is Patient Pain Free? Yes - Nurse 3 - General Ulcer D/C NN Start: 03/07/25 09:22 Freq: Status: Active Protocol: Activity Type Activity Date Activity User E-sign Co-sign Detail Recorded Client Recorded Date Recorded By Document 03/07/25 10:37 CP [id number] 03/07/25 10:39 CP 03/07/25 10:37 Wound Care Center Nurse 3 #3- LLE CIRCUMFERENTIAL -Ulcer Cleansing Soap and Water -Foul Odor after Cleansing No -Primary Dressing Applied Optilok 8x12 -Other Dressing xeroform -Primary Dressing Covered/Secured with Dry Gauze & Roll Gauze, Secured with Tape -Optilok 8x12 2 BLE -Tubular Bandage Single Layer -Size of Tubigrip Used Size F -Size F ($) 2 Pain Scale: 0-10 Numeric Is Patient Pain Free? Yes WC - Visit Discharge Discharge Condition Stable Ambulatory Status Ambulatory Transportation Private Auto Clinical Summary of Care Provided Yes Assessment/Plan Assessment/Plan (1) Infected wound: CODE(S): T14.8XXA - Other injury of unspecified body region, initial encounter; L08.9 - Local infection of the skin and subcutaneous tissue, unspecified (2) Lymphedema: CODE(S): I89.0 - Lymphedema, not elsewhere classified PLAN: Double layer Tubigrip's with compression pumps also daily (3) Non-pressure chronic ulcer of left calf limited to breakdown of skin: CODE(S): L97.221 - Non-pressure chronic ulcer of left calf limited to breakdown of skin PLAN: Wash leg with antibacterial soap and water and apply the Xeroform dressings to the wounds cover with ABDs Linden and Burke wrap left leg or double layer Tubigrip to the leg twice daily and follow-up in 1 week Biopsy obtained of the left lower leg we will pending treatment with results of this which will be back in a week or 2. 2 sutures were placed to hold for bleeding will can remove them next week. (4) Morbid obesity: CODE(S): E66.01 - Morbid (severe) obesity due to excess calories
--- NOTE | 2025-03-08 09:22 | WC ---
PHOTO-LLE 03/07/25
--- NOTE | 2025-03-14 12:12 | PCM.WC.PN ---
History of Present Illness Date of Service: 03/14/25 Chief Complaint: Left lower extremity nonpressure ulcerations History of Wound: Patient is a 19-year-old male who presents to the wound care center today by referral from his SRINIVASA Greer. Reports that his legs are swollen and more painful. He was placed on antibiotic prior and has not been elevating his legs more . He does use his Burke wraps and his pumps for compression and reports some improvement in this. States that the legs do have lots of yellow serous fluid drainage and tend to weep. He has been changing his dressings twice daily. He did report history of multiple ulcerations however these have improved with the previously stated treatment. He continues to attempt Burke wrap compression and will be going to vascular physician for additional recommendations. He is understanding that he has PMHx of HTN, morbid obesity, peripheral venous insufficiency, lymphedema, and metabolic syndrome are contributing to his current edema and wound problems. He denies any trauma to the lower extremities. Denies N/V/F/chills. Denies further complaints. He is currently taking Ozempic for weight loss and he is at the lowest dose he is just 2 weeks and it has curbed his appetite. Mind you only the nonpressure ulcers are on the left leg partially circumferential but not totally. He complains they itch terribly. And the skin underneath the ulcers looks beautiful its supple and flesh-colored. Progress of Wound: Culture came back negative. 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 Which is a form of eczema and it is probably due to some kind of allergen or stress related problem or allergic to something. Patient states he noticed it flared right after he tried to work and he was wearing the's pants. And that could be the problem he is certain materials I told him he can wear pants but you might have to wear dressing underneath over that skin area to prevent it from irritation and from having allergic reaction. Still the objective is to figure out what your triggers are take antihistamines try using which we are going to try now triamcinolone which is a steroid cream and still going to use the Xeroform antibiotic topping over it is because it seems to be helping and then oral steroids to see if that helps with his overall allergic problem. So we will see him another week and then we can decide if he really needs the Xeroform anymore more and just needs a steroid cream he will be off the steroid pills 2 by then and we can go from there that he might only need to come in every once in a while he can also follow-up with dermatology if these fail to because he will need to go on some kind of immune modulator and I do not prescribe that. Especially since there is no open wounds that everything is really solid and we kind and now know what is going on with him. Subjective Subjective Patient and grandmother are very appreciative asked what how we founded I also discussed with him his lab work and that his thyroid is out of whack and I would insist that he get on something for his thyroid that could help him a lot with all his overall health losing weight and this leg problem. Patient is also use amLactin cream and it is helping with his dry spots on his other leg. Objective Data Objective Data So the skin raised areas are more flat less erythema and still the flesh colored underneath his looks really good he still has a lot of hair on his legs so there is a good vascular system going on so he is going to start using the cream which is a steroid cream once a day with the Xeroform over top and see how that works for him and then we will follow-up in 1 week and see how if things are getting better. Vital Signs: Vital Signs Temp Pulse Resp BP 98.7 F 111 H 16 129/67 H 03/07/25 09:22 03/07/25 09:22 03/07/25 09:22 03/07/25 09:22 Lab / Micro Data Attestation: I reviewed the patient's lab results. Lab results narrative: Shows hypothyroidism and some anemia Micro: Microbiology 03/07/25 09:57 Wound - Leg, Left Gram Stain - Final 03/07/25 09:57 Wound - Leg, Left Wound Culture - Final No growth aerobically. 03/07/25 09:57 Wound - Leg, Left Anaerobic Culture - Final No growth in 5 days. Physical Exam Const oriented x3 General Appearance: cooperative Exam Limitations: no limitations HEENT Head and Scalp: normal to inspection Face and Sinus: normal facial exam Eyes General Eye: normal appearance of both eyes Neck full ROM General: normal visual inspection Resp normal respiratory effort Effort and Inspection: able to speak in complete sentences Auscultation: clear to auscultation bilaterally Cardio regular rate and regular rhythm Palpation: normal PMI Rate: regular rate Rhythm: regular rhythm Extremity General Extremity: normal exam except as noted and edema bilateral Skin Skin Narrative: Open nonhealing chronic ulcers on the left lower leg that are circumferential wet looking on normal flesh skin Neuro oriented x3 Psych Appearance: grossly normal Speech: normal speech Thought Content: normal thought content Judgement: judgement good Debridement Note Debridement Note No debridement was completed: No debridement was completed today Post-Debridement Measurements and Additional Note: Post-Debridement Measurements/Treatment - Nurse 1 - General Ulcer Assessment Start: 03/07/25 09:22 Freq: Status: Active Protocol: ANDREY Activity Type Activity Date Activity User E-sign Co-sign Detail Recorded Client Recorded Date Recorded By Document 03/07/25 09:22 [id number] 03/07/25 09:27 Document 03/14/25 09:58 [place] [id number] 03/14/25 10:08 [place] 03/07/25 03/14/25 09:22 09:58 - Today's Visit Information Type of service Follow-up Visit (Physician/PRESS OPERATOR [employer]AT ) Arrival Mode Ambulatory Patient Identification Verified (Name & Yes ) Vital Signs Temperature (97.8 F-99.1 F) 98.7 F Temperature Source Temporal Pulse Rate (60-100) 111 H Pulse Location Monitor Respiratory Rate (12-18) 16 Respiratory rate source Observation Blood Pressure (90/60-120/80) 129/67 H Blood Pressure Mean (mm Hg) 87 Source Monitor Position Sitting Blood Pressure Location Right Forearm Pain Scale: 0-10 Numeric Is Patient Pain Free? No Yes left lower extrem -Description Aching -Intensity 3 -Duration (hours) Acute -Pain Behavior No Change in Behavior -Alleviating Factors/Interventions Distraction -Effectiveness of Alleviating Factor/ Moderately Intervention effective - Nurse 1 - General Ulcer Measurement Start: 03/07/25 09:22 Freq: Status: Active Protocol: Activity Type Activity Date Activity User E-sign Co-sign Detail Recorded Client Recorded Date Recorded By Document 03/07/25 09:22 [id number] 03/07/25 09:27 Document 03/14/25 09:58 IL [id number] 03/14/25 10:08 MT 03/07/25 10 09:22 09:58 Wound Center Nurse 1 #3- LLE CIRCUMFERENTIAL -Current Size (cm) - Length 17 23.5 -Current Size (cm) - Width 58 57 -Current Size (cm) - Depth 0.1 0.1 -Total Square Cm 589 3009.5 -Date of Last Picture (Recall this 03/07/25 03/14/25 field) -Photo Taken Yes Yes -Tunneling No -Undermining/Tunneling No -Circular Undermining No -Exudate Amt Large Large -Exudate Type Serous Serous -Wound Margin Flat & Intact Flat & Intact -Granulation Amt Large (67-100%) Large (67-100%) -Granulation Quality Red Red -Slough/Fibrin No -Necrosis Amt Small (1-33%) -Necrotic Tissue Type Adherent Slough -Structure Exposed N/A -Texture (Mellissa-wound Skin Appearance) No Abnormality Assessed, Excoriation, Induration -Moisture (Mellissa-wound Skin Appearance) No Abnormality Maceration, Weeping -Color (Mellissa-wound Skin Appearance) No Abnormality Assessed, Erythema,Palor, Rubor -Temperature (Mellissa-wound Skin No Abnormality No Abnormality Appearance) (Pt Warm) (Pt Warm) -Tenderness on Palpation (Mellissa-wound No Skin Appearance) -Ulcer Cleansing Soap and Water Wound Cleanser -Foul Odor after Cleansing No No -Anesthetic Used 4% Lidocaine Solution Right Calf (cm) 56 Right Ankle (cm) 36 Left Calf (cm) 58 57 Left Ankle (cm) 38 24 WC - Nurse 2 - General Ulcer CM Notes Start: 03/07/25 09:22 Freq: Status: Active Protocol: Activity Type Activity Date Activity User E-sign Co-sign Detail Recorded Client Recorded Date Recorded By Document 03/07/25 09:51 DS [id number] 03/07/25 09:53 DS Edit Result 03/07/25 09:51 DS (1) [id number] 03/07/25 10:04 DS Edit Result 03/07/25 09:51 DS (2) [id number] 03/07/25 10:05 DS Document 03/14/25 10:28 DS [id number] 03/14/25 10:41 DS (1) #3- LLE CIRCUMFERENTIAL - Clinical Debridement => Subcutaneous - Tissue Removed => Subcutaneous - Debridement - Subq, 1st 20sq cm => Yes - Wound Comment(s) => debrided on LLE along with biospy (2) #3- LLE CIRCUMFERENTIAL - Clinical Debridement Subcutaneous => - Tissue Removed Subcutaneous => - Debridement - Subq, 1st 20sq cm Yes => - Wound Comment(s) debrided on LLE along with biospy => 03/07/25 03/14/25 09:51 10:28 Wound Center Nurse 2 #3- LLE CIRCUMFERENTIAL -Time 09:51 10:28 -Correct Patient Yes Yes -Correct Side, Site, Position Yes Yes -Correct Procedure Yes -Procedure Performed Yes No -Type of Procedure Biopsy -Wound/Ulcer Outcome Not Healed Not Healed -Ulcer Cleansing Rinsed/ Irrigated with Saline -Foul Odor after Cleansing No -Bioengineered Tissue No -Injectable Lidocaine w/ Epi (%) 1 -Injectable Lidocaine w/ Epi (mls) 10 -Bleeding Controlled with Pressure -Treatment Response Procedure Tolerated Well -I&D / Paring / Biopsy Punch bx skin ( includes simple close, if done ), single lesion -Wound Comment(s) sutures removed from punch biopsy spot - LLE lateral Pain Scale: 0-10 Numeric Is Patient Pain Free? Yes Yes - Nurse 3 - General Ulcer D/C NN Start: 03/07/25 09:22 Freq: Status: Active Protocol: Activity Type Activity Date Activity User E-sign Co-sign Detail Recorded Client Recorded Date Recorded By Document 03/07/25 10:37 CP [id number] 03/07/25 10:39 CP Document 03/14/25 11:00 ML [id number] 03/14/25 11:01 ML 03/07/25 03/14/25 10:37 11:00 Wound Care Center Nurse 3 #3- LLE CIRCUMFERENTIAL -Ulcer Cleansing Soap and Water -Foul Odor after Cleansing No -Primary Dressing Applied Optilok 8x12 -Other Dressing xeroform xeroform -Primary Dressing Covered/Secured with Dry Gauze & Dry Gauze & Roll Gauze, Roll Gauze, Secured with Secured with Tape Tape -Optilok 8x12 2 BLE -Tubular Bandage Single Layer Single Layer -Size of Tubigrip Used Size F Size E -Size E ($) 1 -Size F ($) 2 Pain Scale: 0-10 Numeric Is Patient Pain Free? Yes Yes WC - Visit Discharge Discharge Condition Stable Ambulatory Status Ambulatory Transportation Private Auto Clinical Summary of Care Provided Yes Assessment/Plan Assessment/Plan (1) Spongiotic dermatitis: CODE(S): L30.8 - Other specified dermatitis PLAN: Triamcinolone to the only reddened areas on his left leg covered with Xeroform dressings and then ABDs and Linden and then he can wear his Tubigrip's over top. Also take prednisone 20 mg to daily for 10 days. He should also use antihistamine such as Claritin or Zyrtec twice a day to help with the itching Continue using the amLactin cream to dry patches on his other heels and skin areas Follow-up in 1 week for reevaluation of the area (2) Infected wound: CODE(S): T14.8XXA - Other injury of unspecified body region, initial encounter; L08.9 - Local infection of the skin and subcutaneous tissue, unspecified (3) Lymphedema: CODE(S): I89.0 - Lymphedema, not elsewhere classified PLAN: Double layer Tubigrip's with compression pumps also daily (4) Non-pressure chronic ulcer of left calf limited to breakdown of skin: CODE(S): L97.221 - Non-pressure chronic ulcer of left calf limited to breakdown of skin PLAN: 2 sutures removed this week from his left leg from biopsy area. (5) Morbid obesity: CODE(S): E66.01 - Morbid (severe) obesity due to excess calories PLAN: Continue weight loss program and using Ozempic for weight loss.
--- NOTE | 2025-03-15 09:22 | WC ---
PHOTO-LLE 03/14/25
[2025-03-21 10:08] VITALS: BP 121/65; PULSE 88; RESP 16; TEMP 36.3
--- NOTE | 2025-03-21 10:29 | PCM.WC.PN ---
History of Present Illness Date of Service: 03/21/25 Chief Complaint: Left lower extremity nonpressure ulcerations History of Wound: Patient is a 19-year-old male who presents to the wound care center today by referral from his SRINIVASA Greer. Reports that his legs are swollen and more painful. He was placed on antibiotic prior and has not been elevating his legs more . He does use his Burke wraps and his pumps for compression and reports some improvement in this. States that the legs do have lots of yellow serous fluid drainage and tend to weep. He has been changing his dressings twice daily. He did report history of multiple ulcerations however these have improved with the previously stated treatment. He continues to attempt Burke wrap compression and will be going to vascular physician for additional recommendations. He is understanding that he has PMHx of HTN, morbid obesity, peripheral venous insufficiency, lymphedema, and metabolic syndrome are contributing to his current edema and wound problems. He denies any trauma to the lower extremities. Denies N/V/F/chills. Denies further complaints. He is currently taking Ozempic for weight loss and he is at the lowest dose he is just 2 weeks and it has curbed his appetite. Mind you only the nonpressure ulcers are on the left leg partially circumferential but not totally. He complains they itch terribly. And the skin underneath the ulcers looks beautiful its supple and flesh-colored. Progress of Wound: Culture came back negative. 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 Which is a form of eczema and it is probably due to some kind of allergen or stress related problem or allergic to something. Patient states he noticed it flared right after he tried to work and he was wearing the's pants. Patient is healed this week and the skin is almost becoming flesh-colored with slight erythema more darkened erythema like it with old so he will be discharged from the wound center he can finish up the steroids and use the steroid cream for as long as possible and just jump on top of it as soon as he gets a flare and he needs needs to practice his lifestyle changes and we talked about diet and stressors. Subjective Subjective Patient was very pleased with outcomes Objective Data Objective Data Patient will be discharged from the wound center and he can follow-up as needed. Vital Signs: Vital Signs Temp Pulse Resp BP O2 Del Method 97.4 F L 88 16 121/65 H Room Air 10/15/25 10:08 03/21/25 10:08 03/21/25 10:08 03/21/25 10:08 03/21/25 10:08 Oxygen Delivery Method Room Air Lab / Micro Data Micro: Microbiology 03/07/25 09:57 Wound - Leg, Left Gram Stain - Final 03/07/25 09:57 Wound - Leg, Left Wound Culture - Final No growth aerobically. 03/07/25 09:57 Wound - Leg, Left Anaerobic Culture - Final No growth in 5 days. Physical Exam Const oriented x3 General Appearance: cooperative Exam Limitations: no limitations HEENT Head and Scalp: normal to inspection Face and Sinus: normal facial exam Eyes General Eye: normal appearance of both eyes Neck full ROM General: normal visual inspection Resp normal respiratory effort Effort and Inspection: able to speak in complete sentences Auscultation: clear to auscultation bilaterally Cardio regular rate and regular rhythm Palpation: normal PMI Rate: regular rate Rhythm: regular rhythm Extremity General Extremity: normal exam except as noted and edema bilateral Skin Skin Narrative: Open nonhealing chronic ulcers on the left lower leg that are circumferential wet looking on normal flesh skin Neuro oriented x3 Psych Appearance: grossly normal Speech: normal speech Thought Content: normal thought content Judgement: judgement good Debridement Note Debridement Note No debridement was completed: No debridement was completed today Post-Debridement Measurements and Additional Note: Post-Debridement Measurements/Treatment - Nurse 1 - General Ulcer Assessment Start: 03/07/25 09:22 Freq: Status: Active Protocol: WC.[place] Activity Type Activity Date Activity User E-sign Co-sign Detail Recorded Client Recorded Date Recorded By Document 03/07/25 09:22 [id number] 03/07/25 09:27 CP Document 03/14/25 09:58 MT [id number] 03/14/25 10:08 MT 03/07/25 03/14/25 09:22 09:58 - Today's Visit Information Type of service Follow-up Visit (Physician/[employer] OPERATOR ) Arrival Mode Ambulatory Patient Identification Verified (Name & Yes ) Vital Signs Temperature (97.8 F-99.1 F) 98.7 F Temperature Source Temporal Pulse Rate (60-100) 111 H Pulse Location Monitor Respiratory Rate (12-18) 16 Respiratory rate source Observation Blood Pressure (90/60-120/80) 129/67 H Blood Pressure Mean (mm Hg) 87 Source Monitor Position Sitting Blood Pressure Location Right Forearm Pain Scale: 0-10 Numeric Is Patient Pain Free? No Yes left lower extrem -Description Aching -Intensity 3 -Duration (hours) Acute -Pain Behavior No Change in Behavior -Alleviating Factors/Interventions Distraction -Effectiveness of Alleviating Factor/ Moderately Intervention effective WC - Nurse 1 - General Ulcer Measurement Start: 03/07/25 09:22 Freq: Status: Active Protocol: Activity Type Activity Date Activity User E-sign Co-sign Detail Recorded Client Recorded Date Recorded By Document 03/07/25 09:22 CP [id number] 03/07/25 09:27 CP Document 03/14/25 09:58 MT [id number] 03/14/25 10:08 KS 03/07/25 03/14/25 09:22 09:58 Wound Center Nurse 1 #3- LLE CIRCUMFERENTIAL -Current Size (cm) - Length 17 23.5 -Current Size (cm) - Width 58 57 -Current Size (cm) - Depth 0.1 0.1 -Total Square Cm 986 1339.5 -Date of Last Picture (Recall this 03/07/25 03/14/25 field) -Photo Taken Yes Yes -Tunneling No -Undermining/Tunneling No -Circular Undermining No -Exudate Amt Large Large -Exudate Type Serous Serous -Wound Margin Flat & Intact Flat & Intact -Granulation Amt Large (67-100%) Large (67-100%) -Granulation Quality Red Red -Slough/Fibrin No -Necrosis Amt Small (1-33%) -Necrotic Tissue Type Adherent Slough -Structure Exposed N/A -Texture (Mellissa-wound Skin Appearance) No Abnormality Assessed, Excoriation, Induration -Moisture (Mellissa-wound Skin Appearance) No Abnormality Maceration, Weeping -Color (Mellissa-wound Skin Appearance) No Abnormality Assessed, Erythema,Palor, Rubor -Temperature (Mellissa-wound Skin No Abnormality No Abnormality Appearance) (Pt Warm) (Pt Warm) -Tenderness on Palpation (Mellissa-wound No Skin Appearance) -Ulcer Cleansing Soap and Water Wound Cleanser -Foul Odor after Cleansing No No -Anesthetic Used 4% Lidocaine Solution Right Calf (cm) 56 Right Ankle (cm) 36 Left Calf (cm) 58 57 Left Ankle (cm) 38 24 WC - Nurse 2 - General Ulcer CM Notes Start: 03/07/25 09:22 Freq: Status: Active Protocol: Activity Type Activity Date Activity User E-sign Co-sign Detail Recorded Client Recorded Date Recorded By Document 03/07/25 09:51 DS [id number] 03/07/25 09:53 DS Edit Result 03/07/25 09:51 DS (1) [id number] 03/07/25 10:04 DS Edit Result 03/07/25 09:51 DS (2) [id number] 03/07/25 10:05 DS Document 03/14/25 10:28 DS [id number] 03/14/25 10:41 DS (1) #3- LLE CIRCUMFERENTIAL - Clinical Debridement => Subcutaneous - Tissue Removed => Subcutaneous - Debridement - Subq, 1st 20sq cm => Yes - Wound Comment(s) => debrided on LLE along with biospy (2) #3- LLE CIRCUMFERENTIAL - Clinical Debridement Subcutaneous => - Tissue Removed Subcutaneous => - Debridement - Subq, 1st 20sq cm Yes => - Wound Comment(s) debrided on LLE along with biospy => 03/07/25 03/14/25 09:51 10:28 Wound Center Nurse 2 #3- LLE CIRCUMFERENTIAL -Time 09:51 10:28 -Correct Patient Yes Yes -Correct Side, Site, Position Yes Yes -Correct Procedure Yes -Procedure Performed Yes No -Type of Procedure Biopsy -Wound/Ulcer Outcome Not Healed Not Healed -Ulcer Cleansing Rinsed/ Irrigated with Saline -Foul Odor after Cleansing No -Bioengineered Tissue No -Injectable Lidocaine w/ Epi (%) 1 -Injectable Lidocaine w/ Epi (mls) 10 -Bleeding Controlled with Pressure -Treatment Response Procedure Tolerated Well -I&D / Paring / Biopsy Punch bx skin ( includes simple close, if done ), single lesion -Wound Comment(s) sutures removed from punch biopsy spot - LLE lateral Pain Scale: 0-10 Numeric Is Patient Pain Free? Yes Yes WC - Nurse 3 - General Ulcer D/C NN Start: 03/07/25 09:22 Freq: Status: Active Protocol: Activity Type Activity Date Activity User E-sign Co-sign Detail Recorded Client Recorded Date Recorded By Document 03/07/25 10:37 CP [id number] 03/07/25 10:39 CP Document 03/14/25 11:00 ML [id number] 03/14/25 11:01 ML 03/07/25 03/14/25 10:37 11:00 Wound Care Center Nurse 3 #3- LLE CIRCUMFERENTIAL -Ulcer Cleansing Soap and Water -Foul Odor after Cleansing No -Primary Dressing Applied Optilok 8x12 -Other Dressing xeroform xeroform -Primary Dressing Covered/Secured with Dry Gauze & Dry Gauze & Roll Gauze, Roll Gauze, Secured with Secured with Tape Tape -Optilok 8x12 2 BLE -Tubular Bandage Single Layer Single Layer -Size of Tubigrip Used Size F Size E -Size E ($) 1 -Size F ($) 2 Pain Scale: 0-10 Numeric Is Patient Pain Free? Yes Yes WC - Visit Discharge Discharge Condition Stable Ambulatory Status Ambulatory Transportation Private Auto Clinical Summary of Care Provided Yes Assessment/Plan Assessment/Plan (1) Spongiotic dermatitis: CODE(S): L30.8 - Other specified dermatitis (2) Infected wound: CODE(S): T14.8XXA - Other injury of unspecified body region, initial encounter; L08.9 - Local infection of the skin and subcutaneous tissue, unspecified PLAN: Discharge from the wound center follow-up as needed (3) Lymphedema: CODE(S): I89.0 - Lymphedema, not elsewhere classified PLAN: Double layer Tubigrip's with compression pumps also daily (4) Non-pressure chronic ulcer of left calf limited to breakdown of skin: CODE(S): L97.221 - Non-pressure chronic ulcer of left calf limited to breakdown of skin (5) Morbid obesity: CODE(S): E66.01 - Morbid (severe) obesity due to excess calories PLAN: Continue weight loss program and using Ozempic for weight loss.
--- NOTE | 2025-03-22 09:32 | WC ---
PHOTO-LEFT LEG 03/21/25
== END 2025-03-21 10:26 | disposition home or self-care (01) ==
LOC: WC 09:45
PROVIDERS: PCP Physician Assistant; Referring Provider Physician Assistant; Visit Provider Nurse Practitioner
DX: L97.221 Non-pressure chronic ulcer of left calf limited to breakdown of skin (principal); E66.01 Morbid (severe) obesity due to excess calories; Z79.85 Long-term (current) use of injectable non-insulin antidiabetic drugs; L30.8 Other specified dermatitis; I89.0 Lymphedema, not elsewhere classified
CPT/HCPCS: 11042; 11104; 87070; 87075; 87205; 88305; 88312; 99212; 99213; G0463